=== PATIENT | male | born 1945 | race Caucasian/White ===

== ENCOUNTER 2017-01-19 15:29 | Inpatient (IN) | payer MEDICARE, BC ==
[2017-01-19] MEDS ORDERED: ALBUTEROL NEBULIZED 2.5 MG/3 ML INHALATION STA (16:15)
[2017-01-19] MEDS ORDERED: methylPREDNISolone SOD SUCCI 125 MG/2 ML VIAL IV STA (16:15)
[2017-01-19] MEDS ORDERED: IPRATROPIUM 0.5 MG/2.5 ML NEBU INHALATION STA (16:16)
[2017-01-19 16:39] LABS: Basophils # (A) 0.1 k/uL (0-0.2); Basophils % (A) 1 %; CH 30.9; CHCM 34.4; Eosinophils % (A) 0 %; HCT 41.3 % (39.0-53.0); HDW 2.78; HGB 13.6 gm/dL (13.0-17.5); Luc # (Auto) 0.03; Luc % (Auto) 0; Lymphocytes # (A) 0.4 k/uL (1.0-4.8); Lymphocytes % (A) 4 %; MCH 29.7 pg (25.0-35.0); MCHC 32.9 g/dL (31.0-37.0); MCV 90.2 fL (80.0-100.0); Mean Platelet Volume 7.3; Monocytes # (A) 0.2 k/uL (0-1.0); Monocytes % (A) 2 %; Neutrophils # (A) 9.7 k/uL (1.3-7.7); Neutrophils % (A) 93 %; RBC 4.58 m/uL (4.30-5.90); RDW 14.5 % (11.5-15.5); WBC 10.5 k/uL (3.8-10.6)
[2017-01-19 16:48] LABS: ALT 25 U/L (21-72); AST 21 U/L (17-59); Alkaline Phosphatase 67 U/L (38-126); Anion Gap 12 mmol/L; Blood Urea Nitrogen 27 mg/dL (9-20); Calcium 9.7 mg/dL (8.4-10.2); Carbon Dioxide 23 mmol/L (22-30); Chloride 103 mmol/L (98-107); Glucose 260 mg/dL (74-99); Non-African American GFR(MDRD) 59 (>60 ml/min/1.73 sqM); Potassium 4.7 mmol/L (3.5-5.1); Sodium 138 mmol/L (137-145); Total Bilirubin 0.7 mg/dL (0.2-1.3); Total Protein 7.2 g/dL (6.3-8.2)
[2017-01-19 16:55] LABS: Prothrombin Time 10.4 sec (9.0-12.0)
[2017-01-19 16:57] LABS: Creatine Kinase 48 U/L (55-170)
[2017-01-19 17:05] LABS: Partial Thromboplastin Time 22.2 sec (22.0-30.0)
[2017-01-19 17:10] LABS: Creatine Kinase MB 2.2 ng/mL (0.0-2.4); Troponin I <0.012 ng/mL (0.000-0.034)
--- NOTE | 2017-01-19 17:14 | XR ---
EXAMINATION TYPE: XR chest 2V DATE OF EXAM: 01/19/2017 COMPARISON: 05/19/2015 HISTORY: Short of breath TECHNIQUE: Frontal and lateral views of the chest are obtained. FINDINGS: There is some coarsening of interstitial markings. Lungs are clear of consolidation. There is no heart failure. There is neurostimulator in the lower thoracic spine. Bony thorax is intact. IMPRESSION: Interstitial fibrotic changes. No acute lung disease. No change compared to old exam.
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
[2017-01-19 20:35] LABS: Glucose,Whole Blood 306 mg/dL (75-99)
[2017-01-19] MEDS: INSULIN LISPRO (humaLOG) 300 UNIT/3 ML VIAL SQ SCH (21:15)
[2017-01-19 22:07] VITALS: BMI 32.4
[2017-01-19] MEDS: LISINOPRIL 20 MG TAB PO SCH (22:13)
[2017-01-19] MEDS: metFORMIN 500 MG TAB PO SCH (22:13)
[2017-01-19] MEDS: ALLOPURINOL 100 MG TAB PO SCH (22:13)
[2017-01-19] MEDS: LORATADINE 10 MG TAB PO SCH (22:13)
[2017-01-19] MEDS: TAMSULOSIN 0.4 MG CAP.ER.24H PO SCH (22:14)
[2017-01-19] MEDS: ALPRAZolam 0.5 MG TAB PO SCH (22:20)
[2017-01-19] MEDS ORDERED: NITROGLYCERIN SL TABS 0.4 MG TAB SUBLINGUAL PRN (23:06)
[2017-01-19] MEDS ORDERED: ALBUTEROL NEBULIZED 2.5 MG/3 ML INHALATION PRN (23:06)
[2017-01-19] MEDS ORDERED: FUROSEMIDE 40 MG TAB PO PRN (23:06)
[2017-01-19] MEDS ORDERED: POTASSIUM CHLORIDE ER 10 MEQ TAB.ER.PRT PO PRN (23:06)
[2017-01-19 23:09] LABS: Glucose,Whole Blood 267 mg/dL (75-99)
[2017-01-19] MEDS ORDERED: INSULIN LISPRO (humaLOG) 300 UNIT/3 ML VIAL SQ ONE (23:46)
[2017-01-19] MEDS: guaiFENesin-DM 600/30MG 1 EACH TAB.ER.12H PO SCH (23:54)
[2017-01-19] MEDS: methylPREDNISolone SOD SUCCI 125 MG/2 ML VIAL IV SCH (23:54)
[2017-01-20 02:05] LABS: Glucose,Whole Blood 143 mg/dL (75-99)
[2017-01-20 06:26] LABS: Glucose,Whole Blood 148 mg/dL (75-99)
[2017-01-20] MEDS: methylPREDNISolone SOD SUCCI 125 MG/2 ML VIAL IV SCH ×4 (06:29→23:26)
[2017-01-20] MEDS: INSULIN LISPRO (humaLOG) 300 UNIT/3 ML VIAL SQ SCH ×4 (06:30→21:08)
[2017-01-20] MEDS: metFORMIN 500 MG TAB PO SCH ×2 (09:07→21:08)
[2017-01-20] MEDS: ALPRAZolam 0.5 MG TAB PO SCH ×2 (09:07→21:08)
[2017-01-20] MEDS: guaiFENesin-DM 600/30MG 1 EACH TAB.ER.12H PO SCH (09:08)
[2017-01-20] MEDS: MONTELUKAST 10 MG TAB PO SCH (09:08)
[2017-01-20] MEDS: SPIRONOLACTONE 25 MG TAB PO SCH (09:08)
[2017-01-20] MEDS: LEVOFLOXACIN 500 MG TAB PO SCH (10:42)
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
[2017-01-20] MEDS: BUDESONIDE 0.5 MG/2 ML NEBU INHALATION SCH ×2 (11:37→19:52)
[2017-01-20] MEDS: TIOTROPIUM 18 MCG/PUFF INHALER INHALATION SCH (11:37)
[2017-01-20] MEDS: ALBUTEROL NEBULIZED 2.5 MG/3 ML INHALATION SCH ×4 (11:37→21:08)
[2017-01-20] MEDS: IPRATROPIUM 0.5 MG/2.5 ML NEBU INHALATION SCH ×3 (11:38→21:08)
[2017-01-20 11:49] LABS: Glucose,Whole Blood 225 mg/dL (75-99)
[2017-01-20 12:01] LABS: Hemoglobin A1C 6.6 % (4.2-6.1)
[2017-01-20] MEDS: IPRATROPIUM-ALBUTEROL 3 ML NEB INHALATION PRN ×2 (16:00→19:52)
[2017-01-20 16:50] LABS: Glucose,Whole Blood 175 mg/dL (75-99)
[2017-01-20 20:59] LABS: Glucose,Whole Blood 220 mg/dL (75-99)
[2017-01-20] MEDS: ALLOPURINOL 100 MG TAB PO SCH (21:08)
[2017-01-20] MEDS: LORATADINE 10 MG TAB PO SCH (21:08)
[2017-01-20] MEDS: LISINOPRIL 20 MG TAB PO SCH (21:08)
[2017-01-20] MEDS: TAMSULOSIN 0.4 MG CAP.ER.24H PO SCH (21:09)
[2017-01-21 05:59] LABS: Basophils # (A) 0.1 k/uL (0-0.2); Basophils % (A) 0 %; CH 30.9; CHCM 33.9; Eosinophils % (A) 0 %; HCT 43.4 % (39.0-53.0); HDW 2.73; HGB 13.9 gm/dL (13.0-17.5); Luc # (Auto) 0.05; Luc % (Auto) 0; Lymphocytes # (A) 0.5 k/uL (1.0-4.8); Lymphocytes % (A) 3 %; MCH 29.5 pg (25.0-35.0); MCHC 32.1 g/dL (31.0-37.0); MCV 91.8 fL (80.0-100.0); Mean Platelet Volume 7.2; Monocytes # (A) 0.5 k/uL (0-1.0); Monocytes % (A) 3 %; Neutrophils % (A) 94 %; RBC 4.72 m/uL (4.30-5.90); RDW 14.5 % (11.5-15.5); WBC 18.1 k/uL (3.8-10.6); WBC (Perox) 18.07
[2017-01-21 06:09] LABS: ALT 34 U/L (21-72); AST 15 U/L (17-59); Alkaline Phosphatase 68 U/L (38-126); Anion Gap 12 mmol/L; Blood Urea Nitrogen 31 mg/dL (9-20); Calcium 9.7 mg/dL (8.4-10.2); Carbon Dioxide 25 mmol/L (22-30); Chloride 102 mmol/L (98-107); Glucose 185 mg/dL (74-99); Non-African American GFR(MDRD) >60 (>60 ml/min/1.73 sqM); Potassium 4.9 mmol/L (3.5-5.1); Sodium 139 mmol/L (137-145); Total Bilirubin 0.4 mg/dL (0.2-1.3); Total Protein 6.7 g/dL (6.3-8.2)
[2017-01-21 06:16] LABS: Glucose,Whole Blood 184 mg/dL (75-99)
[2017-01-21] MEDS: INSULIN LISPRO (humaLOG) 300 UNIT/3 ML VIAL SQ SCH ×4 (06:34→22:48)
[2017-01-21] MEDS: methylPREDNISolone SOD SUCCI 125 MG/2 ML VIAL IV SCH ×4 (06:35→22:49)
[2017-01-21] MEDS: ALBUTEROL NEBULIZED 2.5 MG/3 ML INHALATION SCH ×4 (07:45→20:26)
[2017-01-21] MEDS: BUDESONIDE 0.5 MG/2 ML NEBU INHALATION SCH ×2 (07:45→20:26)
[2017-01-21] MEDS: TIOTROPIUM 18 MCG/PUFF INHALER INHALATION SCH (07:45)
[2017-01-21] MEDS: IPRATROPIUM-ALBUTEROL 3 ML NEB INHALATION PRN ×4 (07:45→23:13)
[2017-01-21] MEDS: IPRATROPIUM 0.5 MG/2.5 ML NEBU INHALATION SCH ×4 (07:46→20:26)
[2017-01-21] MEDS: ALPRAZolam 0.5 MG TAB PO SCH ×2 (08:14→22:53)
[2017-01-21] MEDS: guaiFENesin-DM 600/30MG 1 EACH TAB.ER.12H PO SCH (08:15)
[2017-01-21] MEDS: metFORMIN 500 MG TAB PO SCH ×2 (08:15→22:47)
[2017-01-21] MEDS: LEVOFLOXACIN 500 MG TAB PO SCH (08:15)
[2017-01-21] MEDS: MONTELUKAST 10 MG TAB PO SCH (08:16)
[2017-01-21] MEDS: SPIRONOLACTONE 25 MG TAB PO SCH (08:16)
[2017-01-21 11:42] LABS: Glucose,Whole Blood 235 mg/dL (75-99)
--- NOTE | 2017-01-21 12:03 | P.PN ---
Subjective 01/20/17- This is a 71-year-old male patient being seen examined and evaluated today on the selective care unit. This patient was admitted to the hospital after coming into the emergency room for increasing shortness of breath for the last week. The patient is known to have a history of COPD and pulmonary fibrosis and was originally being worked up at [facility] for a possible lung transplant. Patient has also completed pulmonary rehab earlier this year. The patient states he feels his progressive shortness of breath has to do with recent mold exposure in his house that was tested and noted to be 3 different types of mold that he is also ALLERGIC to. Apparently the patient stated that the criminal justice instructor of the home did have the mold removed however he felt it was not sufficiently removed. Patient is a former smoker and quit smoking approximately 3 years ago. Upon examination patient's resting up in bed on 3 L of supplemental oxygen which is what he uses at home as well. He states he does have a productive cough with tannish yellow sputum. He is afebrile no further complaints. Of note patient is also known to have some obstructive sleep apnea however states he cannot wear CPAP due to claustrophobia. 01/21/17- this patient has been seen and evaluated today on the selective care unit. Patient states he is having some slight improvement in his breathing however he still feels wheezy and tight at times. Complaints of shortness of breath with exertion. He feels less congested today than previously. He has been afebrile, no overnight events. No further complaints. Objective - Vital Signs Vital signs: Vital Signs Temp 98.2 F 01/21/17 08:00 Pulse 92 01/21/17 11:41 Resp 18 01/21/17 08:00 BP 189/101 01/21/17 08:00 Pulse Ox 97 01/21/17 08:00 Intake & Output 01/20/17 01/21/17 01/21/17 18:59 06:59 18:59 Intake Total 777 240 Balance 777 240 Weight 114.4 kg Intake: Oral 777 240 Other: Voiding Method Urinal # Voids 1 2 - Exam GENERAL EXAM: Alert, active, comfortable in no apparent distress. HEAD: Normocephalic. EYES: Normal reaction of pupils, equal size. NOSE: Clear with pink turbinates. THROAT: No erythema or exudates. NECK: No masses, no JVD. CHEST: No chest wall deformity. LUNGS: Lungs noted to have poor air entry bilaterally, diminished bases. Expiratory wheezing scattered throughout. CVS: S1 and S2 normal with no audible mumurs, regular rhythm. ABDOMEN: No hepatosplenomegaly, normal bowel sounds, no guarding or rigidity. EXTREMITIES: Trace edema noted, pedal pulses palpable. SKIN: No rashes CENTRAL NERVOUS SYSTEM: No focal deficits, tone is normal in all 4 extremities. - Labs CBC & Chem 7: 01/21/17 05:32 01/21/17 05:32 Labs: Abnormal Lab Results - Last 24 Hours (Table) 01/19/17 01/20/17 01/20/17 Range/Units 16:20 16:45 20:52 WBC (3.8-10.6) k/uL Plt Count (150-450) k/uL Neutrophils # (1.3-7.7) k/uL Lymphocytes # (1.0-4.8) k/uL BUN (9-20) mg/dL Glucose (74-99) mg/dL POC Glucose (mg/dL) 175 H 220 H (75-99) mg/dL Hemoglobin A1c 6.6 H (4.2-6.1) % AST (17-59) U/L 01/21/17 01/21/17 01/21/17 Range/Units 05:32 05:32 06:14 WBC 18.1 H (3.8-10.6) k/uL Plt Count 115 L (150-450) k/uL Neutrophils # 17.0 H (1.3-7.7) k/uL Lymphocytes # 0.5 L (1.0-4.8) k/uL BUN 31 H (9-20) mg/dL Glucose 185 H (74-99) mg/dL POC Glucose (mg/dL) 184 H (75-99) mg/dL Hemoglobin A1c (4.2-6.1) % AST 15 L (17-59) U/L 01/21/17 Range/Units 11:30 WBC (3.8-10.6) k/uL Plt Count (150-450) k/uL Neutrophils # (1.3-7.7) k/uL Lymphocytes # (1.0-4.8) k/uL BUN (9-20) mg/dL Glucose (74-99) mg/dL POC Glucose (mg/dL) 235 H (75-99) mg/dL Hemoglobin A1c (4.2-6.1) % AST (17-59) U/L Assessment and Plan Plan: Assessment Acute on chronic hypoxic respiratory failure Acute exacerbation of COPD Pulmonary fibrosis Diabetes mellitus type 2 History of Coronary artery disease with previous stenting Acute exacerbation of chronic persistent asthma, moderate Obstructive sleep apnea Hypertension Hyperlipidemia History of valley fever History of BPH Plan Medications have been reviewed and will be continued as ordered. We'll begin to decrease steroids after this evening's dose. Continue empiric antibiotics and steroids. Continue with pulmonary hygiene, coughing and deep breathing exercises, and supportive care. Supplemental oxygen to maintain oxygen saturations of 92% or better. Continue nebulizer treatments. GI and DVT prophylaxis. We will continue to monitor labs/results and adjust treatment as necessary. Further recommendations pending. I performed an examination of the patient and discussed their management with the nurse practitioner. I have reviewed the nurse practitioner's note and agree with the documented findings and plan of care. We are covering for Dr. CARLOS Cristina.
--- NOTE | 2017-01-21 14:19 | HP ---
DATE OF ADMISSION: 01/19/2017 DATE OF SERVICE: 01/20/2017 This is a pleasant 71-year-old white male who is known to have chronic obstructive pulmonary disease, who has been having problems for the past month. He has seen Dr. Baldev Cristina as an outpatient. He was administered updrafts and steroids and has failed conservative outpatient treatment. He is subsequently admitted for an exacerbation of chronic obstructive pulmonary disease. His medications include aerosol Ventolin and Pulmicort. Zyrtec, Zyloprim, Mucinex, insulin, Singulair, Xolair, potassium chloride, Flomax, Spiriva, metformin, Xanax, Lasix and [place]. ALLERGIES: No known drug allergies. REVIEW OF SYSTEMS: Admits to asthma, chronic obstructive pulmonary disease, heart disease, large prostate, high blood pressure. Denies any stroke or paralysis. Denies any myocardial infarction. Past medical history significant for asthma, coronary artery disease, cancer, heart failure, chronic obstructive pulmonary disease, diabetes, hyperlipidemia, hypertension, osteoarthritis, enlarged prostate, obstructive sleep apnea. He also has diabetic neuropathy in the lower extremities. Rest of review of systems is unremarkable. PSYCHOSOCIAL: Admits to former smoking. Denies any recent alcohol or drug abuse. FAMILY HISTORY: Coronary artery disease and his mother has renal failure. PHYSICAL EXAM: Patient is alert, oriented x3, answering questions appropriately. HEENT: Head is normocephalic and atraumatic. NECK: Supple, no JVD. HEART: Regular rate and rhythm. LUNGS: Diminished breath sounds bilateral. ABDOMEN: Soft, nontender. No rebound, rigidity or guarding. EXTREMITIES: No cyanosis, clubbing or jaundice. PSYCHIATRIC: Patient answers questions appropriately. NEUROLOGICAL: Cranial nerves II through XII grossly intact. IMPRESSIONS: 1. Exacerbation of chronic obstructive pulmonary disease. 2. Hypoxemia with acute respiratory failure requiring oxygen and pulmonary toilet. 3. Coronary artery disease, stable. 4. Diabetes mellitus type 2 insulin requiring. PLAN: Admit patient. Full pulmonary consultation in progress. IV steroids. Updrafts. Continue to follow patients overall guarded prognosis. MTDD
[2017-01-21] MEDS: HYDROcodone/APAP 10-325MG 1 EACH TAB PO PRN ×2 (14:55→22:53)
[2017-01-21 17:05] LABS: Glucose,Whole Blood 116 mg/dL (75-99)
[2017-01-21 20:34] LABS: Glucose,Whole Blood 222 mg/dL (75-99)
[2017-01-21] MEDS: LISINOPRIL 20 MG TAB PO SCH (22:47)
[2017-01-21] MEDS: TAMSULOSIN 0.4 MG CAP.ER.24H PO SCH (22:47)
[2017-01-21] MEDS: ALLOPURINOL 100 MG TAB PO SCH (22:47)
[2017-01-21] MEDS: LORATADINE 10 MG TAB PO SCH (22:48)
[2017-01-22] MEDS: methylPREDNISolone SOD SUCCI 125 MG/2 ML VIAL IV SCH ×3 (05:23→12:54)
[2017-01-22 05:57] LABS: Glucose,Whole Blood 216 mg/dL (75-99)
[2017-01-22] MEDS: INSULIN LISPRO (humaLOG) 300 UNIT/3 ML VIAL SQ SCH ×2 (06:51→12:54)
[2017-01-22] MEDS: HYDROcodone/APAP 10-325MG 1 EACH TAB PO PRN (08:57)
[2017-01-22] MEDS: ALPRAZolam 0.5 MG TAB PO SCH (08:57)
[2017-01-22] MEDS: guaiFENesin-DM 600/30MG 1 EACH TAB.ER.12H PO SCH (08:59)
[2017-01-22] MEDS: LEVOFLOXACIN 500 MG TAB PO SCH (08:59)
[2017-01-22] MEDS: metFORMIN 500 MG TAB PO SCH (08:59)
[2017-01-22] MEDS: MONTELUKAST 10 MG TAB PO SCH (08:59)
[2017-01-22] MEDS: SPIRONOLACTONE 25 MG TAB PO SCH (09:00)
[2017-01-22] MEDS: TIOTROPIUM 18 MCG/PUFF INHALER INHALATION SCH (09:03)
[2017-01-22] MEDS: IPRATROPIUM-ALBUTEROL 3 ML NEB INHALATION SCH ×2 (09:03→12:05)
[2017-01-22] MEDS: BUDESONIDE 0.5 MG/2 ML NEBU INHALATION SCH (09:03)
[2017-01-22 10:39] VITALS: RESP 17
[2017-01-22] MEDS ORDERED: SENNOSIDES-DOCUSATE SODIUM 1 EACH TAB PO SCH (11:30)
--- NOTE | 2017-01-22 11:36 | P.DS ---
Providers Date of admission: 01/19/17 19:23 Attending physician: Armand Montenegro Consults: 01/19/17 19:21 Consult Physician Urgent Consulting Provider: Ritchie Cristina Consult Reason/Comments: Pulmonary fibrosis, COPD Do you want consulting provider notified?: Yes, Notify in am Primary care physician: Armand Montenegro [place] [facility] Course: This is a 71-year-old gentleman that is seen in cross coverage for Dr. Armand Montenegro. Patient has chronic hypoxemic respiratory failure secondary to an FEV of 27% with COPD and pulmonary fibrosis. Patient comes in with acute exacerbation of COPD with difficulty breathing and clinically was noted to have wheezing apparently. Patient was started on breathing treatments was started on Levaquin and Pulmicort Patient is improved rapidly over the last 24 hours At this time due my evaluation patient's lungs diminished breath sounds no extremity wheezing is appreciated no rhonchi noted Heart S1-S2 heard regular rate and rhythm no murmurs appreciable Abdomen is soft nontender no organomegaly Lower extremities no edema noted Discharge diagnoses #1 acute exacerbation of COPD secondary to bronchitis #2 chronic hypoxemic respiratory failure #3 HF PEF without any acute exacerbation #4 pulmonary fibrosis #5 obesity #6 essential hypertension Plan Patient be discharged on steroids is recommended to follow-up with Dr. Shola Cristina thereafter steroids can be tapered off Patient states that he has been having extreme difficulty with his breathing since his ALLERGIES have worsened Patient Condition at Discharge: Stable Plan - Discharge Summary New Discharge Prescriptions: New predniSONE 40 mg PO DAILY #20 tab Continue Cetirizine HCl [Zyrtec] 10 mg PO HS Allopurinol [Zyloprim] 100 mg PO HS Albuterol Sulfate [Proventil Hfa] 2 puff INHALATION RT-QID PRN PRN Reason: Shortness Of Breath Omalizumab [Xolair] 450 mg IM Q14D Montelukast [Singulair] 10 mg PO DAILY Guaifenesin/Pseudoephedrne HCl [Mucinex D ER Tablet] 1 tab PO QAM Potassium Chloride [Klor-Con 10] 10 meq PO DAILY PRN PRN Reason: SWELLING Tiotropium Dema [Spiriva] 1 puff INHALATION RT-DAILY metFORMIN HCL 1,000 mg PO BID Budesonide [Pulmicort] 0.5 mg INHALATION RT-BID Albuterol Nebulized [Ventolin Nebulized] 2.5 mg INHALATION RT-QID Insulin Regular [humuLIN R] 0 units SQ DAILY PRN PRN Reason: Blood Sugar - High Tamsulosin [Flomax] 0.4 mg PO HS Nitroglycerin Sl Tabs [Nitrostat] 0.4 mg SUBLINGUAL Q5M PRN #25 tab PRN Reason: Chest Pain Quinapril HCl [Accupril] 20 mg PO HS #30 tab Spironolactone [Aldactone] 25 mg PO DAILY #0 Furosemide [Lasix] 40 mg PO DAILY PRN PRN Reason: Edema Hydrocodone/Acetaminophen [Leonard 10-325] 1 tab PO TID PRN PRN Reason: Pain ALPRAZolam [Xanax] 0.5 mg PO BID Discharge Medication List Albuterol Nebulized [Ventolin Nebulized] 2.5 mg INHALATION RT-QID 05/19/15 [ History] Albuterol Sulfate [Proventil Hfa] 2 puff INHALATION RT-QID PRN 05/19/15 [History ] Allopurinol [Zyloprim] 100 mg PO HS 05/19/15 [History] Budesonide [Pulmicort] 0.5 mg INHALATION RT-BID 05/19/15 [History] Cetirizine HCl [Zyrtec] 10 mg PO HS 05/19/15 [History] Guaifenesin/Pseudoephedrne HCl [Mucinex D ER Tablet] 1 tab PO QAM 05/19/15 [ History] Insulin Regular [humuLIN R] 0 units SQ DAILY PRN 05/19/15 [History] Montelukast [Singulair] 10 mg PO DAILY 05/19/15 [History] Omalizumab [Xolair] 450 mg IM Q14D 05/19/15 [History] Potassium Chloride [Klor-Con 10] 10 meq PO DAILY PRN 05/19/15 [History] Tamsulosin [Flomax] 0.4 mg PO HS 05/19/15 [History] Tiotropium Dema [Spiriva] 1 puff INHALATION RT-DAILY 05/19/15 [History] metFORMIN HCL 1,000 mg PO BID 05/19/15 [History] Nitroglycerin Sl Tabs [Nitrostat] 0.4 mg SUBLINGUAL Q5M PRN #25 tab 05/23/15 [Rx ] Quinapril HCl [Accupril] 20 mg PO HS #30 tab 05/23/15 [Rx] Spironolactone [Aldactone] 25 mg PO DAILY #0 05/23/15 [Rx] ALPRAZolam [Xanax] 0.5 mg PO BID 01/19/17 [History] Furosemide [Lasix] 40 mg PO DAILY PRN 01/19/17 [History] Hydrocodone/Acetaminophen [Leonard 10-325] 1 tab PO TID PRN 01/19/17 [History] predniSONE 40 mg PO DAILY #20 tab 01/22/17 [Rx] Follow up Appointment(s)/Referral(s): Armand Montenegro DO [Primary Care Provider] - 1-2 days Ritchie Cristina MD [STAFF PHYSICIAN] - 1 Week Discharge Disposition: HOME SELF-CARE
--- NOTE | 2017-01-22 11:45 | P.PN ---
Subjective 01/20/17- This is a 71-year-old male patient being seen examined and evaluated today on the selective care unit. This patient was admitted to the hospital after coming into the emergency room for increasing shortness of breath for the last week. The patient is known to have a history of COPD and pulmonary fibrosis and was originally being worked up at [facility] for a possible lung transplant. Patient has also completed pulmonary rehab earlier this year. The patient states he feels his progressive shortness of breath has to do with recent mold exposure in his house that was tested and noted to be 3 different types of mold that he is also ALLERGIC to. Apparently the patient stated that the psychology tech of the home did have the mold removed however he felt it was not sufficiently removed. Patient is a former smoker and quit smoking approximately 3 years ago. Upon examination patient's resting up in bed on 3 L of supplemental oxygen which is what he uses at home as well. He states he does have a productive cough with tannish yellow sputum. He is afebrile no further complaints. Of note patient is also known to have some obstructive sleep apnea however states he cannot wear CPAP due to claustrophobia. 01/21/17- this patient has been seen and evaluated today on the selective care unit. Patient states he is having some slight improvement in his breathing however he still feels wheezy and tight at times. Complaints of shortness of breath with exertion. He feels less congested today than previously. He has been afebrile, no overnight events. No further complaints. 01/22/17 patient is being seen examined and evaluated today on rounds. He does have improvement in his shortness of breath and wheezing. Also continues to be slightly tight at times. He has been up ambulating in the hallway frequently. Continues on 3 L of supplemental oxygen which she wears at home. Patient would like to go home as he feels his breathing is at baseline. Objective - Vital Signs Vital signs: Vital Signs Temp 98.7 F 01/22/17 08:00 Pulse 96 01/22/17 09:23 Resp 17 01/22/17 08:00 BP 153/92 01/22/17 08:00 Pulse Ox 98 01/22/17 09:06 Intake & Output 01/21/17 01/22/17 01/22/17 18:59 06:59 18:59 Intake Total 480 0 180 Output Total 200 Balance 480 -200 180 Weight 114.4 kg Intake: Oral 480 0 180 Output: Urine 200 Other: Voiding Method Urinal # Voids 1 1 - Exam GENERAL EXAM: Alert, active, comfortable in no apparent distress. HEAD: Normocephalic. EYES: Normal reaction of pupils, equal size. NOSE: Clear with pink turbinates. THROAT: No erythema or exudates. NECK: No masses, no JVD. CHEST: No chest wall deformity. LUNGS: Lungs noted to have poor air entry bilaterally, diminished bases. No significant wheezing. CVS: S1 and S2 normal with no audible mumurs, regular rhythm. ABDOMEN: No hepatosplenomegaly, normal bowel sounds, no guarding or rigidity. EXTREMITIES: Trace edema noted, pedal pulses palpable. SKIN: No rashes CENTRAL NERVOUS SYSTEM: No focal deficits, tone is normal in all 4 extremities. - Labs CBC & Chem 7: 01/21/17 05:32 01/21/17 05:32 Labs: Abnormal Lab Results - Last 24 Hours (Table) 01/21/17 01/21/17 01/21/17 Range/Units 11:30 17:03 20:33 POC Glucose (mg/dL) 235 H 116 H 222 H (75-99) mg/dL 01/22/17 Range/Units 05:55 POC Glucose (mg/dL) 216 H (75-99) mg/dL Assessment and Plan Plan: Assessment Acute on chronic hypoxic respiratory failure Acute exacerbation of COPD Pulmonary fibrosis Diabetes mellitus type 2 History of Coronary artery disease with previous stenting Acute exacerbation of chronic persistent asthma, moderate Obstructive sleep apnea Hypertension Hyperlipidemia History of valley fever History of BPH Plan Medications have been reviewed and will be continued as ordered. Patient will need steroid taper in the outpatient setting. Continue empiric antibiotics and steroids. Continue with pulmonary hygiene, coughing and deep breathing exercises , and supportive care. Supplemental oxygen to maintain oxygen saturations of 92 % or better. Continue nebulizer treatments. GI and DVT prophylaxis. We will continue to monitor labs/results and adjust treatment as necessary. Further recommendations pending. I performed an examination of the patient and discussed their management with the nurse practitioner. I have reviewed the nurse practitioner's note and agree with the documented findings and plan of care. We are covering for Dr. CARLOS Cristina.
[2017-01-22 12:17] VITALS: BP 164/65; PULSE 96; TEMP 98.9
[2017-01-22 12:25] LABS: Glucose,Whole Blood 155 mg/dL (75-99)
== END 2017-01-22 14:23 | disposition home or self-care (01) | DRG 190 ==
LOC: EC 15:29 → 6SEL 19:23
PROVIDERS: ADMIT Family Medicine; ATTEND Family Medicine
DX: J44.1 Chronic obstructive pulmonary disease with (acute) exacerbation (principal); J96.21 Acute and chronic respiratory failure with hypoxia; J45.41 Moderate persistent asthma with (acute) exacerbation; I11.0 Hypertensive heart disease with heart failure; I50.9 Heart failure, unspecified; J84.10 Pulmonary fibrosis, unspecified; Z99.81 Dependence on supplemental oxygen; E11.9 Type 2 diabetes mellitus without complications; E66.9 Obesity, unspecified; E78.5 Hyperlipidemia, unspecified; F40.240 Claustrophobia; G47.33 Obstructive sleep apnea (adult) (pediatric); I25.10 Atherosclerotic heart disease of native coronary artery without angina pectoris; N40.0 Benign prostatic hyperplasia without lower urinary tract symptoms; F41.9 Anxiety disorder, unspecified; M19.90 Unspecified osteoarthritis, unspecified site; Z77.120 Contact with and (suspected) exposure to mold (toxic); Z79.4 Long term (current) use of insulin; Z79.899 Other long term (current) drug therapy; Z85.828 Personal history of other malignant neoplasm of skin; Z87.891 Personal history of nicotine dependence; Z95.5 Presence of coronary angioplasty implant and graft; Z96.653 Presence of artificial knee joint, bilateral; Z82.49 Family history of ischemic heart disease and other diseases of the circulatory system
CPT/HCPCS: 36415; 71020; 80053; 82550; 82553; 83036; 83880; 84484; 85025; 85379; 85610; 85730; 93005; 94640; 94760; 96374; 99285

== ENCOUNTER → 2017-08-15 | Outpatient (CLI) | payer MEDICARE, BC ==
--- NOTE | 2017-08-16 11:25 | XR ---
EXAMINATION TYPE: XR chest 2V DATE OF EXAM: 08/15/2017 COMPARISON: 05/08/2017 INDICATION: Cough x1 week TECHNIQUE: Frontal and lateral views of the chest are obtained. FINDINGS: The heart size is normal. The pulmonary vasculature is upper limits of normal. Small amount of fluid may be at the right costophrenic angle. Some atelectatic type changes are likel y present at the bilateral bases.. IMPRESSION: 1. Suspected small bilateral subsegmental atelectasis. 2. Small right pleural fluid collection
== END | disposition home or self-care (01) ==
LOC: RADXRMAIN 18:21
PROVIDERS: ATTEND Internal Medicine Pulmonary Disease
DX: J90 Pleural effusion, not elsewhere classified (principal)
CPT/HCPCS: 71046

== ENCOUNTER → 2017-09-19 | Outpatient (CLI) | payer MEDICARE, BC ==
--- NOTE | 2017-09-19 14:56 | CT ---
EXAMINATION TYPE: CT chest w con DATE OF EXAM: 09/19/2017 COMPARISON: CTA chest May 08, [address] August 12, 2014 HISTORY: Shortness of breath CT DLP: 798 mGycm. Automated Exposure Control for Dose Reduction was Utilized. TECHNIQUE: CT scan of the thorax is performed following with IV Contrast, patient injected with 100 mL of Isovue 300. FINDINGS: LUNGS: Moderate underlying emphysematous change is redemonstrated. 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 There is additional linear scarring posteriorly in the right upper lobe redemonstrated. There is new trian gular shaped consolidation in the posterior lateral right lung base seen best coronal image 91. There is some patchy atelectatic change in the left lung base just above diaphragm. No new suspicious nodu le or mass is present bilaterally. MEDIASTINUM: There are no greater than 1 cm hilar or mediastinal lymph nodes. No pericardial cardio megaly is seen. There is severe rincon three-vessel coronary artery calcification redemonstrated whi ch is noted marker for coronary artery disease. Main pulmonary artery is dilated at 4.1 cm on axial i mage 32, CT findings suggesting underlying pulmonary artery hypertension. Interval resolution of morro cardial effusion noted. There is mild calcified plaque of aorta extending into branch vessels. OTHER: There is severe multilevel spurring in the mid to lower thoracic spine. IMPRESSION: Interval resolution of moderate pericardial effusion. Emphysematous change with scattered right lung scarring redemonstrated. New masslike nodularity posterior lateral right lung base could reflect focal pneumonia, correlate clinically.
== END | disposition home or self-care (01) ==
LOC: RADCTMAIN 12:40
PROVIDERS: ATTEND Internal Medicine
DX: J43.8 Other emphysema (principal); J98.4 Other disorders of lung; R91.8 Other nonspecific abnormal finding of lung field
CPT/HCPCS: 82565; 84520; 71260; 36415; Q9967

== ENCOUNTER 2017-12-10 16:58 | Emergency (ER) | payer MEDICARE, BC ==
[2017-12-10 17:07] VITALS: TEMP 98.1
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
--- NOTE | 2017-12-10 18:32 | US ---
EXAMINATION TYPE: US venous doppler duplex LE LT DATE OF EXAM: 12/10/2017 5:24 PM COMPARISON: NONE CLINICAL HISTORY: Pain. chronic skin discoloration, no prev dvt SIDE PERFORMED: left TECHNIQUE: The lower extremity deep venous system is examined utilizing real time linear array sonog benjamín with graded compression, doppler sonography and color-flow sonography. VESSELS IMAGED: External Iliac Vein (EIV) Common Femoral Vein Deep Femoral Vein Greater Saphenous Vein * Femoral Vein Popliteal Vein Small Saphenous Vein * Proximal Calf Veins (* superficial vessels) Grayscale, color doppler, spectral doppler imaging performed of the deep veins of the left lower extr emity. There is normal flow, compressibility, vascular waveforms. Left Leg: Negative for DVT IMPRESSION: No sonographic evidence of deep venous thrombosis within the left lower extremity.
[2017-12-10 18:55] VITALS: BP 128/68; PULSE 88; RESP 18
[2017-12-10] MEDS ORDERED: CEPHALEXIN 500 MG CAP PO STA (18:56)
== END 2017-12-10 19:11 | disposition home or self-care (01) ==
LOC: EC 16:58
DX: L03.116 Cellulitis of left lower limb (principal); S80.812A Abrasion, left lower leg, initial encounter; I25.10 Atherosclerotic heart disease of native coronary artery without angina pectoris; I11.0 Hypertensive heart disease with heart failure; I50.9 Heart failure, unspecified; M19.90 Unspecified osteoarthritis, unspecified site; I73.9 Peripheral vascular disease, unspecified; J44.9 Chronic obstructive pulmonary disease, unspecified; E11.40 Type 2 diabetes mellitus with diabetic neuropathy, unspecified; F41.9 Anxiety disorder, unspecified; Z86.718 Personal history of other venous thrombosis and embolism; Z85.828 Personal history of other malignant neoplasm of skin; Z87.891 Personal history of nicotine dependence; Z96.653 Presence of artificial knee joint, bilateral; Z95.5 Presence of coronary angioplasty implant and graft; Z98.890 Other specified postprocedural states; Z79.51 Long term (current) use of inhaled steroids; Z79.84 Long term (current) use of oral hypoglycemic drugs; Z79.899 Other long term (current) drug therapy; X58.XXXA Exposure to other specified factors, initial encounter
CPT/HCPCS: 99283

== ENCOUNTER 2018-03-24 11:24 | Inpatient (IN) | payer MEDICARE, BC ==
[2018-03-24] MEDS ORDERED: ALBUTEROL NEBULIZED 2.5 MG/3 ML INHALATION STA (11:42)
[2018-03-24] MEDS ORDERED: IPRATROPIUM 0.5 MG/2.5 ML NEBU INHALATION STA (11:42)
[2018-03-24] MEDS ORDERED: methylPREDNISolone SOD SUCCI 125 MG/2 ML VIAL IV STA (11:42)
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
[2018-03-24 13:04] LABS: Basophils % (A) 0 %; Eosinophils % (A) 0 %; HCT 43.3 % (39.0-53.0); HGB 14.2 gm/dL (13.0-17.5); Hypochromasia Slight; Lymphocytes # (A) 0.4 k/uL (1.0-4.8); Lymphocytes % (A) 4 %; MCH 29.9 pg (25.0-35.0); MCHC 32.8 g/dL (31.0-37.0); MCV 91.2 fL (80.0-100.0); Monocytes # (A) 0.4 k/uL (0-1.0); Monocytes % (A) 4 %; Neutrophils # (A) 9.6 k/uL (1.3-7.7); Neutrophils % (A) 92 %; Platelet Count 100 k/uL (150-450); RBC 4.75 m/uL (4.30-5.90); RDW 14.9 % (11.5-15.5); WBC 10.4 k/uL (3.8-10.6)
[2018-03-24 13:06] LABS: Albumin 4.1 g/dL (3.5-5.0); Calcium 9.5 mg/dL (8.4-10.2); Magnesium 1.5 mg/dL (1.6-2.3); Total Bilirubin 1.1 mg/dL (0.2-1.3); Total Protein 6.7 g/dL (6.3-8.2)
[2018-03-24 13:16] LABS: INR 1.1 (<1.2); Partial Thromboplastin Time 24.8 sec (22.0-30.0); Prothrombin Time 10.6 sec (9.0-12.0)
[2018-03-24 13:28] LABS: Creatine Kinase MB 3.7 ng/mL (0.0-2.4); Troponin I 0.014 ng/mL (0.000-0.034)
--- NOTE | 2018-03-24 13:33 | XR ---
EXAMINATION TYPE: XR chest 2V DATE OF EXAM: 03/24/2018 COMPARISON: 08/15/2017 HISTORY: Shortness of breath for 4 days. History of heart failure and COPD. TECHNIQUE: Frontal and lateral views of the chest are obtained. FINDINGS: There is chronic right hemidiaphragm elevation. Nerve stimulator is seen posteriorly. Card ia mediastinal silhouette is stable but enlarged. Interstitial prominence is unchanged from the prior . There is no new focal consolidation seen. Pulmonary hyperinflation represents underlying COPD. Mode rate multilevel degenerative change of the thoracic spine is noted. Diffuse osseous demineralization is also seen. IMPRESSION: Early changes with no acute cardiopulmonary process.
[2018-03-24] MEDS ORDERED: MAGNESIUM SULFATE-D5W PMX 1 GM in DEXTROSE/WATER 1 100ML.BAG IVPB ONE (13:36)
[2018-03-24] MEDS ORDERED: SODIUM CHLORIDE 0.9% 500 ML 500 ML IV ONE (13:36)
[2018-03-24] MEDS ORDERED: IPRATROPIUM-ALBUTEROL 3 ML NEB INHALATION PRN (14:34)
[2018-03-24] MEDS ORDERED: FUROSEMIDE 40 MG TAB PO PRN (14:35)
[2018-03-24] MEDS ORDERED: ALBUTEROL NEBULIZED 2.5 MG/3 ML INHALATION PRN (14:36)
[2018-03-24] MEDS ORDERED: NITROGLYCERIN SL TABS 0.4 MG TAB SUBLINGUAL PRN (16:45)
[2018-03-24] MEDS ORDERED: ACETAMINOPHEN TAB 500 MG TAB PO PRN (16:47)
[2018-03-24] MEDS ORDERED: HYDROcodone/APAP 5-325MG 1 EACH TAB PO PRN (16:47)
[2018-03-24] MEDS: IPRATROPIUM-ALBUTEROL 3 ML NEB INHALATION SCH ×2 (17:03→21:06)
[2018-03-24 17:09] LABS: Glucose,Whole Blood 314 mg/dL (75-99)
[2018-03-24] MEDS ORDERED: INSULIN REGULAR 100 UNIT/ML VIAL IV ONE (17:10)
[2018-03-24] MEDS ORDERED: INSULIN ASPART 100 UNIT/ML 1 ML 10 ML VIAL SQ SCH (17:30)
[2018-03-24] MEDS ORDERED: INSULIN REGULAR BOLUS (FROM DRIP BAG) IV ONE (17:40)
[2018-03-24] MEDS: TAPENTADOL HCL PO SCH ×2 (17:55→21:02)
[2018-03-24] MEDS: metFORMIN 500 MG TAB PO SCH (19:01)
[2018-03-24] MEDS: methylPREDNISolone SOD SUCCI 125 MG/2 ML VIAL IV SCH ×2 (19:02→23:19)
[2018-03-24 19:27] LABS: Glucose,Whole Blood 343 mg/dL (75-99)
[2018-03-24] MEDS: INSULIN REGULAR 100 UNIT in SODIUM CHLORIDE 0.9% 100 ML IV SCH (20:16)
[2018-03-24] MEDS: INSULIN ASPART 100 UNIT/ML 1 ML 10 ML VIAL SQ SCH (20:31)
[2018-03-24] MEDS: HYDROCHLOROTHIAZIDE 25 MG TAB PO SCH (20:42)
[2018-03-24] MEDS: SPIRONOLACTONE 25 MG TAB PO SCH (20:42)
[2018-03-24] MEDS: ATORVASTATIN 40 MG TAB PO SCH (20:42)
[2018-03-24] MEDS: LISINOPRIL 20 MG TAB PO SCH (20:42)
[2018-03-24] MEDS: ASPIRIN 81 MG PO SCH (20:42)
[2018-03-24] MEDS: TAMSULOSIN 0.4 MG CAP.ER.24H PO SCH (20:42)
[2018-03-24] MEDS: LORATADINE 10 MG TAB PO SCH (20:42)
[2018-03-24] MEDS: ALPRAZolam 1 MG TAB PO SCH (20:42)
[2018-03-24] MEDS: HEPARIN SODIUM,PORCINE 5,000 UNIT/ML 1 ML VIAL SQ SCH (20:42)
[2018-03-24 20:43] LABS: Glucose,Whole Blood 310 mg/dL (75-99)
--- NOTE | 2018-03-24 20:52 | HP ---
HISTORY AND PHYSICAL DATE OF SERVICE: 03/24/2018 I am covering for Dr. Armand Montenegro. HISTORY OF PRESENT ILLNESS: This 72-year-old gentleman with a past medical history of multiple medical problems including COPD, asthma, CHF, hypertension, DJD being followed by Dr. Armand Montenegro in the outpatient setting, not feeling well over the past several days. Patient having increasing shortness of breath, cough and productive white sputum and because of lack of improvement, patient came to [facility] and was admitted for further evaluation and treatment. The patient has also seen Dr. Cisco Cristina and Dr. Jones in the outpatient setting. PAST MEDICAL HISTORY: Asthma, CAD, CHF, COPD, diabetes, hypertension and DJD. MEDICATIONS: Prior to admission include home medications are: 1. Lantus 12 units subcu q.h.s. p.r.n. 2. Aspirin 81 mg q.h.s. 3. Prednisone 2 mg daily. 4. Nucynta 100 mg p.o. q.i.d. 5. Brovana 15 mcg b.i.d. 6. Spiriva 1 puff daily. 7. Flomax 0.4 q.h.s. 8. Aldactone 25 mg q.h.s. 10.Klor-Con 20 mEq p.o. daily. 11.Nitrostat 0.4 sublingual p.r.n. 12.Metformin 1000 mg p.o. b.i.d. 13.Humulin R p.r.n. 14.Mucinex D ER 1 tablet p.o. q.a.m. 15.Lasix 40 mg daily p.r.n. 16.Zyrtec 10 mg q.h.s. 17.Pulmicort 0.5 mg b.i.d. 18.Lipitor 40 mg at bedtime. 19.Zyloprim 100 mg p.o. daily. 20.Proventil 2 puffs q.i.d. p.r.n. 21.Ventolin nebulized 2.5 q.i.d. 22.Xanax 1 mg q.h.s. ALLERGIES: None. FAMILY HISTORY: History of coronary artery disease, CABG. SOCIAL HISTORY: Previous history of smoking. No history of current smoking. No alcohol intake. REVIEW OF SYSTEMS: ENT: No diminished hearing or diminished vision. CARDIOVASCULAR: As mentioned. RESPIRATORY: As mentioned earlier. GI no nausea or vomiting. : No dysuria. CENTRAL NERVOUS SYSTEM: No numbness or weakness. ALLERGY/IMMUNOLOGY: No asthma or hayfever. Musculoskeletal as mentioned. HEMATOLOGY: No history of anemia. ENDOCRINE: No history of diabetes or hypothyroidism. CONSTITUTIONAL: As mentioned earlier. DERMATOLOGY: Negative. RHEUMATOLOGY: Negative. PSYCHIATRY: As mentioned earlier. PHYSICAL EXAMINATION: Alert and oriented x3. Pulse is 92, blood pressure 156/80, respiration 18, temperature 98.8, pulse ox 91 percent on 3 L. HEENT is conjunctivae normal. Oral mucosa moist. Neck is no jugular venous distention. No carotid bruit. No lymph node enlargement. CARDIOVASCULAR: S1, S2 muffled. RESPIRATORY: Breath sounds diminished in the bases. Bilateral scattered rhonchi and expiratory wheezing and crackles. ABDOMEN: Soft, obese, nontender. No mass palpable. LEGS: No edema. No swelling. CENTRAL NERVOUS SYSTEM: Higher functions as mentioned earlier. Moves all 4 limbs. No focal motor or sensory deficits. LYMPHATICS: No lymph nodes palpable in the neck, axillae or groin. SKIN: No ulcer, rash or bleeding. LABS: WBC 10.2, hemoglobin is 14.5, platelets 100. Creatinine is 1.28. Magnesium 1.5 and glucose 314. ASSESSMENT: 1. Chronic obstructive pulmonary disease acute exacerbation with acute purulent tracheobronchitis. 2. Diabetes mellitus type 2, uncontrolled with hyperglycemia. 3. Increased creatinine with chronic kidney disease. 4. Thrombocytopenia. 5. Hypomagnesemia. 6. History of asthma. 7. History of coronary artery disease. 8. History of congestive heart failure. 9. History of diabetes type 2. 10.Hypertension. 11.Degenerative joint disease. 12.Prostate disorder. 13.History of chronic hypoxic respiratory failure. 3 L nasal cannula at home. 14.Obstructive sleep apnea. 15.History of lower extremity peripheral neuropathy. 16.History of back surgery. 17.Coronary artery disease/stent. 18.History of anxiety, claustrophobia. 19.Remote history of nicotine dependence. RECOMMENDATIONS AND DISCUSSION: In this 72-year-old gentleman who presented with multiple complex medical issues , we will monitor the patient closely. Continue the current medications, management and symptomatic treatment. We will initiate broad-spectrum IV antibiotics. I would also recommend IV steroids and IV insulin drip also. Pulmonary consultation with Dr. Cisco Cristina and Dr. Jones. Prognosis guarded because of multiple complex medical issues. Further recommendations to follow. A copy of dictation forwarded to Dr. Montenegro who is the primary physician. MMODL / IJN: [id number] / MTDD
[2018-03-24] MEDS ORDERED: INSULIN DETEMIR 100 UNIT/ML 10 ML VIAL SQ SCH (21:00)
[2018-03-24] MEDS: BUDESONIDE 0.5 MG/2 ML NEBU INHALATION SCH (21:04)
[2018-03-24] MEDS: FORMOTEROL FUMARATE 20 MCG/2 ML NEBU INHALATION SCH (21:06)
[2018-03-24 21:16] LABS: Glucose,Whole Blood 245 mg/dL (75-99)
[2018-03-24 23:17] LABS: Glucose,Whole Blood 169 mg/dL (75-99)
[2018-03-25 01:05] LABS: Glucose,Whole Blood 195 mg/dL (75-99)
[2018-03-25 03:14] LABS: Glucose,Whole Blood 164 mg/dL (75-99)
[2018-03-25 04:59] LABS: Hemoglobin A1C 7.4 % (4.0-6.0)
[2018-03-25] MEDS: INSULIN REGULAR 100 UNIT in SODIUM CHLORIDE 0.9% 100 ML IV SCH (05:14)
[2018-03-25 05:16] LABS: Glucose,Whole Blood 142 mg/dL (75-99)
[2018-03-25] MEDS: methylPREDNISolone SOD SUCCI 125 MG/2 ML VIAL IV SCH ×3 (06:38→17:52)
[2018-03-25 06:50] LABS: Glucose,Whole Blood 147 mg/dL (75-99)
[2018-03-25] MEDS: BUDESONIDE 0.5 MG/2 ML NEBU INHALATION SCH ×2 (07:20→19:08)
[2018-03-25] MEDS: FORMOTEROL FUMARATE 20 MCG/2 ML NEBU INHALATION SCH (07:20)
[2018-03-25] MEDS: IPRATROPIUM-ALBUTEROL 3 ML NEB INHALATION SCH ×4 (07:22→19:08)
[2018-03-25] MEDS ORDERED: INSULIN ASPART 100 UNIT/ML 1 ML 10 ML VIAL SQ SCH (07:30)
[2018-03-25] MEDS: TAPENTADOL HCL PO SCH ×4 (07:52→21:31)
[2018-03-25] MEDS: INSULIN ASPART 100 UNIT/ML 1 ML 10 ML VIAL SQ SCH ×4 (08:01→21:36)
[2018-03-25] MEDS: PANTOPRAZOLE 40 MG TABLET PO SCH (08:44)
[2018-03-25] MEDS: metFORMIN 500 MG TAB PO SCH ×2 (08:44→17:54)
[2018-03-25] MEDS: AZITHROMYCIN 500 MG TAB PO SCH (08:45)
[2018-03-25] MEDS: POTASSIUM CHLORIDE ER 20 MEQ TAB.ER PO SCH (08:45)
[2018-03-25] MEDS: ALLOPURINOL 100 MG TAB PO SCH (08:45)
[2018-03-25] MEDS: HEPARIN SODIUM,PORCINE 5,000 UNIT/ML 1 ML VIAL SQ SCH ×2 (08:46→21:35)
[2018-03-25] MEDS: PSEUDOEPHEDRINE 30 MG TAB PO SCH (08:46)
[2018-03-25 09:21] LABS: Glucose,Whole Blood 252 mg/dL (75-99)
[2018-03-25] MEDS: guaiFENesin 600 MG TABLET.ER PO SCH (09:41)
[2018-03-25 10:00] LABS: Glucose,Whole Blood 207 mg/dL (75-99)
[2018-03-25 12:32] LABS: Glucose,Whole Blood 61 mg/dL (75-99)
[2018-03-25 12:36] LABS: Glucose,Whole Blood 71 mg/dL (75-99)
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
[2018-03-25 17:25] LABS: Glucose,Whole Blood 277 mg/dL (75-99)
[2018-03-25 20:58] LABS: Glucose,Whole Blood 224 mg/dL (75-99)
--- NOTE | 2018-03-25 21:14 | PN ---
PROGRESS NOTE DATE OF SERVICE: 03/25/2018 I am covering for Dr. Armand Montenegro. This 72-year-old gentleman who was admitted with COPD exacerbation is on bronchodilators and steroids. Dr. Baldev Cristina is following the patient closely. The patient is feeling slightly better. No chest pain. No palpitation. EXAM: Alert and oriented x3. Pulse 100, blood pressure 143/82, respiration 24, temp 97.7, pulse ox 98% on 5 L. HEENT: Conjunctivae normal. CARDIOVASCULAR: S1, S2. RESPIRATORY: Breath sounds diminished in the bases. Bilateral scattered rhonchi and crackles. ABDOMEN: Soft, nontender. NERVOUS SYSTEM: No focal deficits. LABS: Platelets 100 and creatinine is 1.28. ASSESSMENT: 1. Chronic obstructive pulmonary disease exacerbation with acute purulent tracheobronchitis. 2. Diabetes mellitus type 2 uncontrolled with hyperglycemia. 3. Increased creatinine with chronic kidney disease. 4. Thrombocytopenia. 5. Hypomagnesemia. 6. History of asthma. 7. History of coronary artery disease. 8. History of congestive heart failure. 9. History of diabetes mellitus type 2. 10.Hypertension. 11.Degenerative joint disease. 12.History of prostate disorder. 13.History of chronic hypoxic respiratory failure, 3 L nasal cannula at home. 14.Obstructive sleep apnea. 15.History of lower extremity peripheral neuropathy. 16.History of back surgery. 17.History of coronary artery disease, stent. 18.History of anxiety, claustrophobia. 19.Remote history of nicotine dependence. RECOMMENDATIONS AND DISCUSSION: I recommend to continue the current management and symptomatic treatment at this time. Continue with bronchodilators and steroids. Antibiotics. Closely follow. His hemoglobin A1c is only 7.4. Further recommendations to follow. MMODL / IJN: [id number] /
[2018-03-25] MEDS: ASPIRIN 81 MG PO SCH (21:35)
[2018-03-25] MEDS: LORATADINE 10 MG TAB PO SCH (21:35)
[2018-03-25] MEDS: ATORVASTATIN 40 MG TAB PO SCH (21:35)
[2018-03-25] MEDS: LISINOPRIL 20 MG TAB PO SCH (21:35)
[2018-03-25] MEDS: SPIRONOLACTONE 25 MG TAB PO SCH (21:35)
[2018-03-25] MEDS: ALPRAZolam 1 MG TAB PO SCH (21:35)
[2018-03-25] MEDS: HYDROCHLOROTHIAZIDE 25 MG TAB PO SCH (21:35)
[2018-03-25] MEDS: TAMSULOSIN 0.4 MG CAP.ER.24H PO SCH (21:35)
[2018-03-25] MEDS: MONTELUKAST 10 MG TAB PO SCH (21:35)
[2018-03-25] MEDS: INSULIN DETEMIR 100 UNIT/ML 10 ML VIAL SQ SCH (21:42)
[2018-03-25] MEDS: methylPREDNISolone SOD SUCCI 40 MG/ML 1 ML VIAL IV SCH (23:12)
[2018-03-26 07:09] LABS: Glucose,Whole Blood 229 mg/dL (75-99)
[2018-03-26] MEDS: BUDESONIDE 0.5 MG/2 ML NEBU INHALATION SCH ×2 (07:20→19:05)
[2018-03-26] MEDS: IPRATROPIUM-ALBUTEROL 3 ML NEB INHALATION SCH ×4 (07:20→19:06)
[2018-03-26] MEDS: metFORMIN 500 MG TAB PO SCH ×2 (08:11→17:42)
[2018-03-26] MEDS: PANTOPRAZOLE 40 MG TABLET PO SCH (08:11)
[2018-03-26] MEDS: INSULIN ASPART 100 UNIT/ML 1 ML 10 ML VIAL SQ SCH ×4 (08:11→22:04)
[2018-03-26] MEDS: PSEUDOEPHEDRINE 30 MG TAB PO SCH (08:12)
[2018-03-26] MEDS: AZITHROMYCIN 500 MG TAB PO SCH (08:12)
[2018-03-26] MEDS: guaiFENesin 600 MG TABLET.ER PO SCH (08:12)
[2018-03-26] MEDS: ALLOPURINOL 100 MG TAB PO SCH (08:12)
[2018-03-26] MEDS: HEPARIN SODIUM,PORCINE 5,000 UNIT/ML 1 ML VIAL SQ SCH ×2 (08:12→22:04)
[2018-03-26] MEDS: POTASSIUM CHLORIDE ER 20 MEQ TAB.ER PO SCH (08:12)
[2018-03-26] MEDS: methylPREDNISolone SOD SUCCI 40 MG/ML 1 ML VIAL IV SCH ×2 (08:13→15:46)
[2018-03-26] MEDS: TAPENTADOL HCL PO SCH ×4 (08:25→22:02)
[2018-03-26 11:44] LABS: Glucose,Whole Blood 213 mg/dL (75-99)
[2018-03-26 13:23] LABS: Basophils % (A) 0 %; Eosinophils % (A) 0 %; HCT 41.7 % (39.0-53.0); HGB 13.4 gm/dL (13.0-17.5); Lymphocytes # (A) 0.3 k/uL (1.0-4.8); Lymphocytes % (A) 3 %; MCHC 32.2 g/dL (31.0-37.0); Mean Platelet Volume 7.4; Monocytes # (A) 0.3 k/uL (0-1.0); Monocytes % (A) 3 %; Neutrophils # (A) 9.6 k/uL (1.3-7.7); Neutrophils % (A) 94 %; RBC 4.63 m/uL (4.30-5.90); RDW 14.6 % (11.5-15.5); WBC 10.2 k/uL (3.8-10.6)
[2018-03-26 13:33] LABS: Magnesium 1.8 mg/dL (1.6-2.3); Potassium 4.8 mmol/L (3.5-5.1)
[2018-03-26 13:54] LABS: Platelet Count 76 k/uL (150-450)
[2018-03-26 17:02] LABS: Glucose,Whole Blood 195 mg/dL (75-99)
--- NOTE | 2018-03-26 19:39 | PN ---
PROGRESS NOTE DATE OF SERVICE: 03/26/2008 I am covering for Dr. Montenegro. HISTORY OF PRESENT ILLNESS: This 72-year-old gentleman with a past medical history of multiple medical problems including COPD and acute purulent tracheobronchitis, is improved significantly. No chest pain. No palpitations. No fever. EXAM: Alert and oriented x3. Pulse 85, blood pressure 170/809, respiration 20, temperature 97.8, pulse ox 97% on 5 L. HEENT: Conjunctivae normal. Oral mucosa moist. Neck is no jugular venous distention. No carotid bruit. No lymph node enlargement. CARDIOVASCULAR: S1, S2. RESPIRATORY: Breath sounds diminished in the bases. Bilateral scattered rhonchi and crackles. ABDOMEN: Soft, nontender. LEGS: No edema. NERVOUS SYSTEM: No focal deficits. LAB STUDIES: At this time shows WBC 10.2, hemoglobin is 10.2, platelets 37. Other labs are noted. ASSESSMENT: 1. Chronic obstructive pulmonary disease acute exacerbation with acute purulent tracheobronchitis. 2. Diabetes mellitus type 2, uncontrolled with hyper and hypoglycemia. 3. Increased creatinine with chronic kidney disease. 4. Thrombocytopenia. 5. Hypomagnesemia. 6. History of asthma. 7. History of coronary artery disease. 8. Congestive heart failure. 9. History of diabetes mellitus type 2. 10.Hypertension. 11.History of degenerative joint disease. 12.History of prostate disorder. 13.History of chronic hypoxic respiratory failure on 3 L nasal cannula at home. 14.Obstructive sleep apnea. 15.History of lower extremity peripheral neuropathy. 16.History of back surgery. 17.History of coronary artery disease, stent. 18.History of anxiety, claustrophobia. 19.Remote history of nicotine dependence. RECOMMENDATIONS AND DISCUSSION: I recommend to continue current management, continue symptomatic treatment. Taper the steroids. Continue the bronchodilators. Continue with antibiotics. Dr. Montenegro will follow. MMODL / IJN: [id number] /
[2018-03-26 20:30] LABS: Glucose,Whole Blood 208 mg/dL (75-99)
--- NOTE | 2018-03-26 21:36 | PN ---
PROGRESS NOTE DATE OF SERVICE: 03/26/2018 I am covering for Dr. Armand Montenegro. This 72-year-old gentleman admitted with COPD acute exacerbation is on IV steroids. Patient still has shortness of breath. The patient was complaining of cough also. Dr. Baldev Cristina is following the patient. No chest pain. No palpitations. No fever. EXAM: Alert and oriented x3. Pulse 74, blood pressure 142/80, respiration 18, temperature 96.9, pulse ox 94% on 5 L. HEENT: Conjunctivae normal. Oral mucosa moist. Neck is no jugular venous distention. No carotid bruit. No lymph node enlargement. CARDIOVASCULAR: S1, S2. RESPIRATORY: Breath sounds diminished in the bases. Bilateral scattered rhonchi. ABDOMEN: Soft, nontender. NERVOUS SYSTEM: No focal deficits. LABS: Platelets 76, glucose 202. ASSESSMENT: 1. Chronic obstructive pulmonary disease exacerbation with acute purulent tracheobronchitis. 2. Diabetes mellitus type 2, uncontrolled with hyperglycemia. 3. Increased creatinine with chronic kidney disease. 4. Thrombocytopenia. 5. Hypomagnesemia. 6. History of asthma. 7. History of coronary artery disease. 8. History of congestive heart failure. 9. Hypertension. 10.Degenerative joint disease. 11.History of prostate disorder. 12.Chronic hypoxic respiratory failure on 3 L nasal cannula at home. 13.Obstructive sleep apnea. 14.History of lower extremity peripheral neuropathy. 15.History of back surgery. 16.History of coronary artery disease, stent. 17.History of anxiety, claustrophobia. 18.Remote history of nicotine dependence. RECOMMENDATIONS AND DISCUSSION: I recommend to continue current management, continue with monitoring, and symptomatic treatment. Otherwise at this time, taper the steroids. The blood sugar is fluctuating. Closely monitor. Dr. Montenegro will follow in the morning. Prognosis guarded. Further recommendations to follow. MMODL / IJN: [id number] /
[2018-03-26] MEDS: LISINOPRIL 20 MG TAB PO SCH (22:01)
[2018-03-26] MEDS: MONTELUKAST 10 MG TAB PO SCH (22:01)
[2018-03-26] MEDS: LORATADINE 10 MG TAB PO SCH (22:01)
[2018-03-26] MEDS: SPIRONOLACTONE 25 MG TAB PO SCH (22:01)
[2018-03-26] MEDS: ALPRAZolam 1 MG TAB PO SCH (22:02)
[2018-03-26] MEDS: TAMSULOSIN 0.4 MG CAP.ER.24H PO SCH (22:02)
[2018-03-26] MEDS: ATORVASTATIN 40 MG TAB PO SCH (22:02)
[2018-03-26] MEDS: HYDROCHLOROTHIAZIDE 25 MG TAB PO SCH (22:02)
[2018-03-26] MEDS: ASPIRIN 81 MG PO SCH (22:02)
[2018-03-26] MEDS: INSULIN DETEMIR 100 UNIT/ML 10 ML VIAL SQ SCH (22:03)
--- NOTE | 2018-03-26 22:03 | PN ---
PROGRESS NOTE DATE OF SERVICE: 03/26/2018 He was seen again on March2017. He has been hemodynamically stable. He is less short of breath overall. PHYSICAL EXAMINATION: His blood pressure is 142/80, respiratory rate of 18, pulse rate of 74, temperature 96.9, O2 saturation on 5 L by nasal cannula is 94%. HEENT reveals pupils equal. Chest reveals prolonged expiration wheeze only on forced expiration. Cardiovascular system is S1, S2. ABDOMEN: Soft. There is no pedal edema. IMPRESSION: 1. At this time is severe asthma with chronic obstructive pulmonary disease with acute exacerbation. 2. Obesity. 3. Obstructive sleep apnea is likely. 4. Coronary artery disease status post stent placement. 5. Diabetes mellitus. PLAN: At this point in time, would continue the patient on IV steroids, bronchodilators, aerosolized steroids. Would only taper his steroids very slowly. Increase his activity level. Depending on how he does, we should make further changes to his care. MMODL / IJN: [id number] /
[2018-03-26 22:49] VITALS: RESP 20
[2018-03-27] MEDS: methylPREDNISolone SOD SUCCI 40 MG/ML 1 ML VIAL IV SCH ×2 (00:14→08:04)
[2018-03-27 05:44] VITALS: BP 150/82; TEMP 97.2
[2018-03-27] MEDS: IPRATROPIUM-ALBUTEROL 3 ML NEB INHALATION SCH ×2 (06:47→11:00)
[2018-03-27] MEDS: BUDESONIDE 0.5 MG/2 ML NEBU INHALATION SCH (06:47)
[2018-03-27 07:01] VITALS: PULSE 92
[2018-03-27 07:11] LABS: Glucose,Whole Blood 269 mg/dL (75-99)
[2018-03-27] MEDS: TAPENTADOL HCL PO SCH (07:59)
[2018-03-27] MEDS: guaiFENesin 600 MG TABLET.ER PO SCH (08:03)
[2018-03-27] MEDS: PANTOPRAZOLE 40 MG TABLET PO SCH (08:03)
[2018-03-27] MEDS: AZITHROMYCIN 500 MG TAB PO SCH (08:03)
[2018-03-27] MEDS: POTASSIUM CHLORIDE ER 20 MEQ TAB.ER PO SCH (08:03)
[2018-03-27] MEDS: PSEUDOEPHEDRINE 30 MG TAB PO SCH (08:03)
[2018-03-27] MEDS: metFORMIN 500 MG TAB PO SCH (08:03)
[2018-03-27] MEDS: ALLOPURINOL 100 MG TAB PO SCH (08:03)
[2018-03-27] MEDS: INSULIN ASPART 100 UNIT/ML 1 ML 10 ML VIAL SQ SCH (08:04)
[2018-03-27] MEDS: HEPARIN SODIUM,PORCINE 5,000 UNIT/ML 1 ML VIAL SQ SCH (08:04)
--- NOTE | 2018-03-27 10:32 | P.DS ---
Providers Date of admission: 03/24/18 14:34 Expected date of discharge: 03/27/18 Attending physician: Armand Montenegro Consults: 03/24/18 14:34 Consult Physician Routine Consulting Provider: Cat Jones Consult Reason/Comments: COPD Do you want consulting provider notified?: Yes Primary care physician: Armand Montenegro Hospital Course: 72-year-old male with a past medical history of multiple medical problems including COPD, asthma, CHF, hypertension, degenerative joint disease who presented to the emergency room with a chief complaint not feeling well over the past several days. Patient complained of increasing shortness of breath, cough, and productive white sputum. The patient was admitted to the hospital and consultations were placed to pulmonary. The patient was started on IV steroids and antibiotics during hospitalization. His respiratory status improved over a few days in the hospital and he is back to his baseline. He was deemed stable for discharge per Dr. Montenegro. DISCHARGE DIAGNOSIS: Acute exacerbation of chronic obstructive pulmonary disease Tracheobronchitis Diabetes mellitus, type II Hyperglycemia Thrombocytopenia History of coronary artery disease History of CHF, type unknown, no evidence of acute exacerbation Hypertension Chronic hypoxic respiratory failure, patient wears 3 L nasal cannula at home Obstructive sleep apnea Nurse practitioner note has been reviewed by physician. Signing provider agrees with the documented findings, assessment, and plan of care. Patient Condition at Discharge: Stable Plan - Discharge Summary Discharge Rx Participant: Yes New Discharge Prescriptions: New Cefuroxime Axetil [Ceftin] 500 mg PO BID #10 tab predniSONE See Taper PO DIRECTED #30 tab Continue Cetirizine HCl [Zyrtec] 10 mg PO HS Allopurinol [Zyloprim] 100 mg PO DAILY Albuterol Sulfate [Proventil Hfa] 2 puff INHALATION RT-QID PRN PRN Reason: Shortness Of Breath Guaifenesin/Pseudoephedrne HCl [Mucinex D ER Tablet] 1 tab PO QAM Potassium Chloride [Klor-Con 10] 20 meq PO DAILY Tiotropium Central [Spiriva] 1 puff INHALATION RT-DAILY metFORMIN HCL 1,000 mg PO BID Budesonide [Pulmicort] 0.5 mg INHALATION RT-BID Albuterol Nebulized [Ventolin Nebulized] 2.5 mg INHALATION RT-QID Insulin Regular [humuLIN R] See Protocol SQ DAILY PRN PRN Reason: Blood Sugar - High Tamsulosin [Flomax] 0.4 mg PO HS Nitroglycerin Sl Tabs [Nitrostat] 0.4 mg SUBLINGUAL Q5M PRN #25 tab PRN Reason: Chest Pain Furosemide [Lasix] 40 mg PO DAILY PRN PRN Reason: Edema ALPRAZolam [Xanax] 1 mg PO HS Atorvastatin [Lipitor] 40 mg PO HS Quinapril/Hydrochlorothiazide [Quinapril-Hctz 20-25 mg Tab] 1 tab PO HS Spironolactone [Aldactone] 25 mg PO HS Insulin Glargine [Lantus] 12 unit SQ HS PRN PRN Reason: Blood Sugar - High Aspirin 81 mg PO HS predniSONE 10 mg PO DAILY Tapentadol HCl [Nucynta] 100 mg PO QID Arformoterol Tartrate [Brovana] 15 mcg INHALATION RT-BID Discharge Medication List Albuterol Nebulized [Ventolin Nebulized] 2.5 mg INHALATION RT-QID 05/19/15 [ History] Albuterol Sulfate [Proventil Hfa] 2 puff INHALATION RT-QID PRN 05/19/15 [History ] Allopurinol [Zyloprim] 100 mg PO DAILY 05/19/15 [History] Budesonide [Pulmicort] 0.5 mg INHALATION RT-BID 05/19/15 [History] Cetirizine HCl [Zyrtec] 10 mg PO HS 05/19/15 [History] Guaifenesin/Pseudoephedrne HCl [Mucinex D ER Tablet] 1 tab PO QAM 05/19/15 [ History] Insulin Regular [humuLIN R] See Protocol SQ DAILY PRN 05/19/15 [History] Potassium Chloride [Klor-Con 10] 20 meq PO DAILY 05/19/15 [History] Tamsulosin [Flomax] 0.4 mg PO HS 05/19/15 [History] Tiotropium Central [Spiriva] 1 puff INHALATION RT-DAILY 05/19/15 [History] metFORMIN HCL 1,000 mg PO BID 05/19/15 [History] Nitroglycerin Sl Tabs [Nitrostat] 0.4 mg SUBLINGUAL Q5M PRN #25 tab 05/23/15 [Rx ] ALPRAZolam [Xanax] 1 mg PO HS 01/19/17 [History] Furosemide [Lasix] 40 mg PO DAILY PRN 01/19/17 [History] Atorvastatin [Lipitor] 40 mg PO HS 05/08/17 [History] Quinapril/Hydrochlorothiazide [Quinapril-Hctz 20-25 mg Tab] 1 tab PO HS [History] Arformoterol Tartrate [Brovana] 15 mcg INHALATION RT-BID 03/24/18 [History] Aspirin 81 mg PO HS 03/24/18 [History] Insulin Glargine [Lantus] 12 unit SQ HS PRN 03/24/18 [History] Spironolactone [Aldactone] 25 mg PO HS 03/24/18 [History] Tapentadol HCl [Nucynta] 100 mg PO QID 03/24/18 [History] predniSONE 10 mg PO DAILY 03/24/18 [History] Cefuroxime Axetil [Ceftin] 500 mg PO BID #10 tab 03/27/18 [Rx] predniSONE See Taper PO DIRECTED #30 tab 03/27/18 [Rx] Follow up Appointment(s)/Referral(s): Armand Montenegro DO [Primary Care Provider] - 1 Week Ritchie Cristina MD [STAFF PHYSICIAN] - 1 Week Activity/Diet/Wound Care/Special Instructions: Resume your daily prednisone after you finish your prednisone taper Discharge Disposition: HOME SELF-CARE
== END 2018-03-27 11:14 | disposition home or self-care (01) | DRG 191 ==
LOC: EC 11:24 → 4MS4W 14:34
PROVIDERS: ADMIT Family Medicine; ATTEND Family Medicine
DX: J44.1 Chronic obstructive pulmonary disease with (acute) exacerbation (principal); I13.0 Hypertensive heart and chronic kidney disease with heart failure and stage 1 through stage 4 chronic kidney disease, or unspecified chronic kidney disease; J96.11 Chronic respiratory failure with hypoxia; E87.2 Acidosis; J45.901 Unspecified asthma with (acute) exacerbation; I50.9 Heart failure, unspecified; G47.33 Obstructive sleep apnea (adult) (pediatric); Z99.81 Dependence on supplemental oxygen; D69.6 Thrombocytopenia, unspecified; E11.22 Type 2 diabetes mellitus with diabetic chronic kidney disease; I25.10 Atherosclerotic heart disease of native coronary artery without angina pectoris; E11.65 Type 2 diabetes mellitus with hyperglycemia; J20.9 Acute bronchitis, unspecified; J44.0 Chronic obstructive pulmonary disease with (acute) lower respiratory infection; E83.42 Hypomagnesemia; E66.9 Obesity, unspecified; Z68.35 Body mass index [BMI] 35.0-35.9, adult; E11.42 Type 2 diabetes mellitus with diabetic polyneuropathy; M19.90 Unspecified osteoarthritis, unspecified site; N18.9 Chronic kidney disease, unspecified; Z79.4 Long term (current) use of insulin; Z79.52 Long term (current) use of systemic steroids; Z82.49 Family history of ischemic heart disease and other diseases of the circulatory system; Z85.828 Personal history of other malignant neoplasm of skin; Z95.5 Presence of coronary angioplasty implant and graft; Z79.82 Long term (current) use of aspirin; Z79.51 Long term (current) use of inhaled steroids; Z79.899 Other long term (current) drug therapy; Z87.891 Personal history of nicotine dependence; N42.9 Disorder of prostate, unspecified; F40.240 Claustrophobia; Z84.1 Family history of disorders of kidney and ureter; I27.81 Cor pulmonale (chronic)
CPT/HCPCS: 36415; 71046; 80048; 80053; 82550; 82553; 83036; 83605; 83735; 83880; 84484; 85025; 85610; 85730; 87040; 93005; 94640; 94760; 96365; 96375; 99285

== ENCOUNTER 2018-07-10 12:18 | Inpatient (IN) | payer MEDICARE, BC ==
[2018-07-10] MEDS ORDERED: IPRATROPIUM-ALBUTEROL 3 ML NEB INHALATION STA (14:26)
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
--- NOTE | 2018-07-10 15:06 | XR ---
EXAMINATION TYPE: XR chest 2V DATE OF EXAM: 07/10/2018 COMPARISON: Chest x-ray March 24, 2018. CT chest September 19, 2017. HISTORY: History of COPD and asthma with shortness of breath TECHNIQUE: Frontal and lateral views of the chest are obtained. FINDINGS: There is chronic emphysematous change bilaterally with scattered areas of parenchymal scar ring redemonstrated. There is no new suspicious focal airspace opacity or pneumothorax seen bilateral ly. Chronic blunting right lateral costophrenic angles consistent with small focal pleural thickening . The cardiac silhouette size is stable and upper limits of normal with atherosclerotic aorta. Spina l stimulator device overlies the lower thoracic spinal canal. IMPRESSION: Chronic emphysematous and parenchymal changes without suspicious acute infiltrate.
[2018-07-10 15:19] LABS: Albumin 4.2 g/dL (3.5-5.0); Calcium 9.5 mg/dL (8.4-10.2); INR 0.9 (<1.2); Partial Thromboplastin Time 25.1 sec (22.0-30.0); Potassium 4.2 mmol/L (3.5-5.1); Prothrombin Time 10.1 sec (9.0-12.0); Total Bilirubin 1.7 mg/dL (0.2-1.3); Total Protein 7.1 g/dL (6.3-8.2)
[2018-07-10 15:22] LABS: Creatine Kinase 62 U/L (55-170)
[2018-07-10 15:27] LABS: Basophils % (A) 0 %; Eosinophils % (A) 0 %; HCT 40.5 % (39.0-53.0); HGB 13.5 gm/dL (13.0-17.5); Lymphocytes # (A) 0.5 k/uL (1.0-4.8); Lymphocytes % (A) 9 %; MCH 29.3 pg (25.0-35.0); MCHC 33.2 g/dL (31.0-37.0); MCV 88.2 fL (80.0-100.0); Mean Platelet Volume 6.6; Monocytes # (A) 0.5 k/uL (0-1.0); Monocytes % (A) 8 %; Neutrophils # (A) 4.9 k/uL (1.3-7.7); Neutrophils % (A) 81 %; RBC 4.59 m/uL (4.30-5.90)
[2018-07-10 15:36] LABS: Creatine Kinase MB 1.7 ng/mL (0.0-2.4); Troponin I <0.012 ng/mL (0.000-0.034)
[2018-07-10 15:56] LABS: Anisocytosis (M) Present; Platelet Count 86 k/uL (150-450); Polychromasia Present
[2018-07-10] MEDS ORDERED: methylPREDNISolone SOD SUCCI 125 MG/2 ML VIAL IV STA (17:10)
[2018-07-10] MEDS ORDERED: IPRATROPIUM-ALBUTEROL 3 ML NEB INHALATION PRN (17:10)
[2018-07-10] MEDS: IPRATROPIUM-ALBUTEROL 3 ML NEB INHALATION SCH (18:44)
[2018-07-10] MEDS: methylPREDNISolone SOD SUCCI 125 MG/2 ML VIAL IV SCH (20:14)
[2018-07-11] MEDS: methylPREDNISolone SOD SUCCI 125 MG/2 ML VIAL IV SCH ×4 (01:38→17:23)
[2018-07-11 07:00] LABS: Glucose,Whole Blood 252 mg/dL (75-99)
[2018-07-11] MEDS ORDERED: FUROSEMIDE 40 MG TAB PO PRN (07:47)
[2018-07-11] MEDS ORDERED: NITROGLYCERIN SL TABS 0.4 MG TAB SUBLINGUAL PRN (07:47)
[2018-07-11] MEDS ORDERED: INSULIN REGULAR 100 UNIT/ML VIAL IV PRN (07:51)
[2018-07-11] MEDS ORDERED: NON-FORMULARY DRUG (Tiotropium Bromide [Spiriva] 1 PUFF) INHALATION SCH (08:00)
[2018-07-11] MEDS: POTASSIUM CHLORIDE ER 20 MEQ TAB.ER PO SCH (08:47)
[2018-07-11] MEDS: ALLOPURINOL 100 MG TAB PO SCH (08:47)
[2018-07-11] MEDS: CHOLECALCIFEROL 1,000 UNIT TAB PO SCH (08:47)
[2018-07-11] MEDS: metFORMIN 500 MG TAB PO SCH ×2 (08:47→20:41)
[2018-07-11] MEDS: INSULIN ASPART 100 UNIT/ML 1 ML 10 ML VIAL SQ SCH ×4 (08:48→20:50)
[2018-07-11] MEDS: GUAIFENESIN PO SCH (08:51)
[2018-07-11] MEDS: PSEUDOEPHEDRINE PO SCH (08:51)
[2018-07-11] MEDS: [UNRECOGNIZED DRUG - OTHER] PO SCH (08:51)
[2018-07-11] MEDS: TAPENTADOL PO SCH ×4 (08:52→20:47)
[2018-07-11] MEDS: BUDESONIDE 0.5 MG/2 ML NEBU INHALATION SCH ×2 (09:16→20:02)
[2018-07-11] MEDS: IPRATROPIUM-ALBUTEROL 3 ML NEB INHALATION SCH ×4 (09:17→20:03)
[2018-07-11] MEDS: FORMOTEROL FUMARATE 20 MCG/2 ML NEBU INHALATION SCH ×2 (09:17→20:17)
[2018-07-11 11:53] LABS: Glucose,Whole Blood 237 mg/dL (75-99)
[2018-07-11] MEDS: LEVOFLOXACIN 250 MG TAB PO SCH (12:08)
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
[2018-07-11 16:56] LABS: Glucose,Whole Blood 206 mg/dL (75-99)
[2018-07-11 17:40] LABS: Hemoglobin A1C 6.8 % (4.0-6.0)
[2018-07-11 20:21] LABS: Glucose,Whole Blood 243 mg/dL (75-99)
[2018-07-11] MEDS: ATORVASTATIN 40 MG TAB PO SCH (20:41)
[2018-07-11] MEDS: LORATADINE 10 MG TAB PO SCH (20:41)
[2018-07-11] MEDS: ASPIRIN 81 MG PO SCH (20:41)
[2018-07-11] MEDS: ALPRAZolam 1 MG TAB PO SCH (20:41)
[2018-07-11] MEDS: TAMSULOSIN 0.4 MG CAP.ER.24H PO SCH (20:41)
[2018-07-11] MEDS: SPIRONOLACTONE 25 MG TAB PO SCH (20:41)
[2018-07-11] MEDS: INSULIN DETEMIR 100 UNIT/ML 10 ML VIAL SQ SCH (20:42)
[2018-07-11] MEDS: LISINOPRIL-HCTZ 20-25 MG 1 EACH TAB PO SCH (20:42)
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
[2018-07-12] MEDS: methylPREDNISolone SOD SUCCI 125 MG/2 ML VIAL IV SCH ×4 (00:25→17:32)
[2018-07-12 07:20] LABS: Glucose,Whole Blood 213 mg/dL (75-99)
[2018-07-12] MEDS: PSEUDOEPHEDRINE PO SCH (07:45)
[2018-07-12] MEDS: GUAIFENESIN PO SCH (07:45)
[2018-07-12] MEDS: [UNRECOGNIZED DRUG - OTHER] PO SCH (07:45)
[2018-07-12] MEDS: TAPENTADOL PO SCH ×4 (07:45→22:09)
[2018-07-12 07:48] LABS: Basophils % (A) 0 %; Eosinophils % (A) 0 %; HCT 40.7 % (39.0-53.0); HGB 13.2 gm/dL (13.0-17.5); Lymphocytes # (A) 0.3 k/uL (1.0-4.8); Lymphocytes % (A) 3 %; MCHC 32.3 g/dL (31.0-37.0); MCV 89.7 fL (80.0-100.0); Mean Platelet Volume 6.6; Monocytes # (A) 0.3 k/uL (0-1.0); Monocytes % (A) 3 %; Neutrophils # (A) 9.1 k/uL (1.3-7.7); Neutrophils % (A) 93 %; RBC 4.54 m/uL (4.30-5.90); RDW 14.9 % (11.5-15.5); WBC 9.7 k/uL (3.8-10.6)
[2018-07-12] MEDS: metFORMIN 500 MG TAB PO SCH ×2 (07:49→22:04)
[2018-07-12] MEDS: INSULIN ASPART 100 UNIT/ML 1 ML 10 ML VIAL SQ SCH ×4 (07:50→22:06)
[2018-07-12] MEDS: CHOLECALCIFEROL 1,000 UNIT TAB PO SCH (07:50)
[2018-07-12] MEDS: POTASSIUM CHLORIDE ER 20 MEQ TAB.ER PO SCH (07:50)
[2018-07-12] MEDS: ALLOPURINOL 100 MG TAB PO SCH (07:51)
[2018-07-12] MEDS: IPRATROPIUM-ALBUTEROL 3 ML NEB INHALATION SCH ×4 (07:52→19:43)
[2018-07-12] MEDS: BUDESONIDE 0.5 MG/2 ML NEBU INHALATION SCH ×2 (07:52→19:43)
[2018-07-12 07:54] LABS: Platelet Count 82 k/uL (150-450)
[2018-07-12 07:58] LABS: Albumin 3.9 g/dL (3.5-5.0); Calcium 9.4 mg/dL (8.4-10.2); Potassium 4.6 mmol/L (3.5-5.1); Total Bilirubin 0.6 mg/dL (0.2-1.3); Total Protein 6.7 g/dL (6.3-8.2)
[2018-07-12] MEDS: FORMOTEROL FUMARATE 20 MCG/2 ML NEBU INHALATION SCH ×2 (08:08→19:43)
[2018-07-12 11:39] LABS: Glucose,Whole Blood 271 mg/dL (75-99)
--- NOTE | 2018-07-12 12:21 | P.PN ---
Subjective Progress Note Date: 07/12/18 HPI: This is a 72-year-old male patient being seen examined and evaluated today for consultation. This patient is well-known to our services. This patient was seen in our office on 07/10/2018 and he presented quite dyspneic. The patient was struggling to breathe and he was quite wheezy. The patient was sent over to the emergency room for further evaluation and treatment ultimately he was admitted to the hospital for the same. Chest x-ray was obtained and does show chronic emphysema with parenchymal changes withassistance infiltrates at this time. The patient previously was being worked up at [facility] for a possible lung transplant however was dropped from the program after they did not feel the patient had enough support at home to go through the transplant process. Upon examination he is resting up in bed on 6 L of supplemental oxygen. He continues to have shortness of breath cough and wheeze however he is less wheezy today that he was yesterday in the office. The breathing treatments are helping him. His influenza swab was negative. He was started on antibiotics. Interval History: 07/12/18- patient is being seen examined and evaluated today on rounds. He is resting up in bed on 6 L of supplemental oxygen via nasal cannula. He continues to have shortness of breath cough and congestion however it is decreasing in severity. He is breathing of green sputum. He feels the nebulizers and steroid treatments are helping him as well as the antibiotics. Overall he feels improved from yesterday however is not at his baseline. All labs and reports have been reviewed. Objective - Vital Signs Vital signs: Vital Signs Temp 98 F 07/12/18 07:21 Pulse 100 07/12/18 11:34 Resp 18 07/12/18 08:10 BP 147/90 07/12/18 07:21 Pulse Ox 96 07/12/18 07:54 Intake & Output 07/11/18 07/12/18 07/12/18 18:59 06:59 18:59 Intake Total 444 472 Balance 444 472 Intake: Oral 444 472 Other: # Voids 2 1 - Exam GENERAL EXAM: Alert, comfortable in no apparent distress. HEAD: Normocephalic. EYES: Normal reaction of pupils, equal size. NOSE: Clear with pink turbinates. THROAT: No erythema or exudates. NECK: No masses, no JVD. CHEST: No chest wall deformity. LUNGS: Lungs noted to have some expiratory wheezing, however improved since yesterday. Bases diminished CVS: S1 and S2 normal with no audible mumurs, regular rhythm. ABDOMEN: No hepatosplenomegaly, normal bowel sounds, no guarding or rigidity. EXTREMITIES: Trace edema noted, pedal pulses palpable. CENTRAL NERVOUS SYSTEM: No focal deficits, tone is normal in all 4 extremities. - Labs CBC & Chem 7: 07/12/18 06:57 07/12/18 06:57 Labs: Abnormal Lab Results - Last 24 Hours (Table) 07/10/18 07/11/18 07/11/18 Range/Units 14:10 16:54 20:15 Plt Count (150-450) k/uL Neutrophils # (1.3-7.7) k/uL Lymphocytes # (1.0-4.8) k/uL BUN (9-20) mg/dL Glucose (74-99) mg/dL POC Glucose (mg/dL) 206 H 243 H (75-99) mg/dL Hemoglobin A1c 6.8 H (4.0-6.0) % 07/12/18 07/12/18 07/12/18 Range/Units 06:57 06:57 07:06 Plt Count 82 L (150-450) k/uL Neutrophils # 9.1 H (1.3-7.7) k/uL Lymphocytes # 0.3 L (1.0-4.8) k/uL BUN 28 H (9-20) mg/dL Glucose 207 H (74-99) mg/dL POC Glucose (mg/dL) 213 H (75-99) mg/dL Hemoglobin A1c (4.0-6.0) % 07/12/18 Range/Units 11:27 Plt Count (150-450) k/uL Neutrophils # (1.3-7.7) k/uL Lymphocytes # (1.0-4.8) k/uL BUN (9-20) mg/dL Glucose (74-99) mg/dL POC Glucose (mg/dL) 271 H (75-99) mg/dL Hemoglobin A1c (4.0-6.0) % Microbiology - Last 24 Hours (Table) 07/10/18 14:10 Blood Culture - Preliminary Blood No Growth after 24 hours Assessment and Plan Assessment: Assessment Acute exacerbation of COPD Acute exacerbation of chronic severe asthma Acute on chronic hypoxic respiratory failure requiring supplemental oxygen Possible early pneumonia, cannot be excluded at this time CAD Hypertension Oxygen dependent Osteoarthritis Plan Medications have been reviewed and will be continued as ordered. Antibiotics and steroid taper Chest x-ray reviewed Continue with pulmonary hygiene, coughing and deep breathing exercises, and supportive care. Supplemental oxygen to maintain oxygen saturations of 92% or better. Continue nebulizer treatments. GI and DVT prophylaxis. We will continue to monitor labs/results and adjust treatment as necessary. Further recommendations pending. I, the signing physician performed an examination of the patient, discussed and directed their management with the nurse practitioner. I have reviewed the nurse practitioner's note and agree with the documented findings, orders and plan of care. Nurse practitioner acting as a scribe for the signing physician.
[2018-07-12] MEDS: LEVOFLOXACIN 250 MG TAB PO SCH (12:22)
[2018-07-12 17:04] LABS: Glucose,Whole Blood 230 mg/dL (75-99)
[2018-07-12 19:48] LABS: Glucose,Whole Blood 202 mg/dL (75-99)
[2018-07-12] MEDS: LISINOPRIL-HCTZ 20-25 MG 1 EACH TAB PO SCH (22:04)
[2018-07-12] MEDS: ATORVASTATIN 40 MG TAB PO SCH (22:04)
[2018-07-12] MEDS: LORATADINE 10 MG TAB PO SCH (22:04)
[2018-07-12] MEDS: ALPRAZolam 1 MG TAB PO SCH (22:04)
[2018-07-12] MEDS: TAMSULOSIN 0.4 MG CAP.ER.24H PO SCH (22:04)
[2018-07-12] MEDS: SPIRONOLACTONE 25 MG TAB PO SCH (22:04)
[2018-07-12] MEDS: INSULIN DETEMIR 100 UNIT/ML 10 ML VIAL SQ SCH (22:05)
[2018-07-12] MEDS: ASPIRIN 81 MG PO SCH (22:05)
--- NOTE | 2018-07-12 22:19 | P.PN ---
Subjective Progress Note Date: 07/12/18 Patient is a pleasant 72 year old white male who is admitted with exacerbation of COPD he seen by pulmonary and started on medications including antibiotics for purulent tracheobronchitis he's doing somewhat better today he is still on steroids but wishes to go home soon if he continues to improve I told him would check tomorrow he denies any chest pain denies any nausea vomiting denies any diarrhea Objective - Vital Signs Vital signs: Vital Signs Temp 98.3 F 07/12/18 19:00 Pulse 99 07/12/18 20:03 Resp 18 07/12/18 20:03 BP 134/80 07/12/18 19:00 Pulse Ox 95 07/12/18 19:43 Intake & Output 07/12/18 07/12/18 07/13/18 06:59 18:59 06:59 Intake Total 472 Balance 472 Intake: Oral 472 Other: # Voids 1 2 - Exam GENERAL: This is a -year-old in no apparent distress at the time of examination. Pleasant and cooperative. HEENT: Head is atraumatic, normocephalic. Pupils are equal, round, and reactive to light. Sclerae anicteric. Conjunctivae are clear. Mucus membranes of the mouth are moist. Neck is supple. RESPIRATORY: wheezes bilateral , No use of accessory muscles. Patient maintaining oxygen saturation greater than 92%. No chest wall tenderness is noted on palpation or with deep breathing. CARDIOVASCULAR: Regular rate and rhythm. S1 and S2 noted. No JVD noted. No S3 or S4 noted. GASTROINTESTINAL: No distention noted. Abdomen soft and round. Normal active bowel sounds auscultated x 4 quadrants. No pain or tenderness noted upon palpation. INTEGUMENTARY: No cyanosis. No jaundice. No rashes noted. No cellulitis noted. Some stasis dermatitis in his lower extremities with edema bilateral EXTREMITIES: 2+ peripheral pulses. No evidence of peripheral edema. No calf tenderness noted. NEUROLOGIC: Cranial nerves II-XII intact. PSYCHIATRIC: Awake, alert, and oriented X 3. - Labs CBC & Chem 7: 07/12/18 06:57 07/12/18 06:57 Labs: Abnormal Lab Results - Last 24 Hours (Table) 07/12/18 07/12/18 07/12/18 Range/Units 06:57 06:57 07:06 Plt Count 82 L (150-450) k/uL Neutrophils # 9.1 H (1.3-7.7) k/uL Lymphocytes # 0.3 L (1.0-4.8) k/uL BUN 28 H (9-20) mg/dL Glucose 207 H (74-99) mg/dL POC Glucose (mg/dL) 213 H (75-99) mg/dL 07/12/18 07/12/18 07/12/18 Range/Units 11:27 16:53 19:47 Plt Count (150-450) k/uL Neutrophils # (1.3-7.7) k/uL Lymphocytes # (1.0-4.8) k/uL BUN (9-20) mg/dL Glucose (74-99) mg/dL POC Glucose (mg/dL) 271 H 230 H 202 H (75-99) mg/dL Microbiology - Last 24 Hours (Table) 07/10/18 14:10 Blood Culture - Preliminary Blood No Growth after 48 hours Assessment and Plan (1) Acute exacerbation of chronic obstructive airways disease Current Visit: Yes Status: Acute Code(s): J44.1 - CHRONIC OBSTRUCTIVE PULMONARY DISEASE W (ACUTE) EXACERBATION SNOMED Code(s): 055682582 (2) Asthma Current Visit: No Status: Acute Code(s): J45.909 - UNSPECIFIED ASTHMA, UNCOMPLICATED SNOMED Code(s): 382062321 (3) COPD (chronic obstructive pulmonary disease) Current Visit: No Status: Acute Code(s): J44.9 - CHRONIC OBSTRUCTIVE PULMONARY DISEASE, UNSPECIFIED SNOMED Code(s): 78255525 (4) Diabetes Current Visit: No Status: Acute Code(s): E11.9 - TYPE 2 DIABETES MELLITUS WITHOUT COMPLICATIONS SNOMED Code(s): 01044766 (5) HTN (hypertension) Current Visit: No Status: Acute Code(s): I10 - ESSENTIAL (PRIMARY) HYPERTENSION SNOMED Code(s): 11990813 (6) Hyperlipemia Current Visit: No Status: Acute Code(s): E78.5 - HYPERLIPIDEMIA, UNSPECIFIED SNOMED Code(s): 85220262 Plan: Continue current treatment wean steroids soon continue updrafts and IV antibiotics discharge when stable
[2018-07-13] MEDS: methylPREDNISolone SOD SUCCI 40 MG/ML 1 ML VIAL IV SCH ×4 (00:10→23:23)
[2018-07-13 06:50] LABS: Glucose,Whole Blood 222 mg/dL (75-99)
[2018-07-13] MEDS: BUDESONIDE 0.5 MG/2 ML NEBU INHALATION SCH ×2 (08:47→19:54)
[2018-07-13] MEDS: IPRATROPIUM-ALBUTEROL 3 ML NEB INHALATION SCH ×4 (08:47→19:55)
[2018-07-13] MEDS: FORMOTEROL FUMARATE 20 MCG/2 ML NEBU INHALATION SCH ×2 (08:47→19:55)
[2018-07-13] MEDS: INSULIN ASPART 100 UNIT/ML 1 ML 10 ML VIAL SQ SCH ×4 (09:15→21:31)
[2018-07-13] MEDS: metFORMIN 500 MG TAB PO SCH ×2 (09:16→21:31)
[2018-07-13] MEDS: POTASSIUM CHLORIDE ER 20 MEQ TAB.ER PO SCH (09:16)
[2018-07-13] MEDS: CHOLECALCIFEROL 1,000 UNIT TAB PO SCH (09:16)
[2018-07-13] MEDS: ALLOPURINOL 100 MG TAB PO SCH (09:16)
[2018-07-13] MEDS: GUAIFENESIN PO SCH (09:32)
[2018-07-13] MEDS: PSEUDOEPHEDRINE PO SCH (09:32)
[2018-07-13] MEDS: [UNRECOGNIZED DRUG - OTHER] PO SCH (09:32)
[2018-07-13] MEDS: TAPENTADOL PO SCH ×4 (09:33→21:32)
[2018-07-13 10:06] LABS: ALT 20 U/L (21-72); AST 17 U/L (17-59); Alkaline Phosphatase 74 U/L (38-126); Anion Gap 10 mmol/L; Blood Urea Nitrogen 33 mg/dL (9-20); Calcium 9.5 mg/dL (8.4-10.2); Carbon Dioxide 29 mmol/L (22-30); Chloride 101 mmol/L (98-107); Glucose 299 mg/dL (74-99); Potassium 5.2 mmol/L (3.5-5.1); Sodium 140 mmol/L (137-145); Total Bilirubin 0.7 mg/dL (0.2-1.3); Total Protein 6.9 g/dL (6.3-8.2)
[2018-07-13 10:15] LABS: Basophils % (A) 0 %; Eosinophils % (A) 0 %; HCT 40.8 % (39.0-53.0); HGB 12.7 gm/dL (13.0-17.5); Lymphocytes # (A) 0.3 k/uL (1.0-4.8); Lymphocytes % (A) 3 %; MCH 28.3 pg (25.0-35.0); MCHC 31.2 g/dL (31.0-37.0); MCV 90.8 fL (80.0-100.0); Mean Platelet Volume 7.4; Monocytes # (A) 0.5 k/uL (0-1.0); Monocytes % (A) 5 %; Neutrophils # (A) 9.4 k/uL (1.3-7.7); Neutrophils % (A) 92 %; Platelet Count 89 k/uL (150-450); RDW 15.1 % (11.5-15.5); WBC 10.3 k/uL (3.8-10.6)
--- NOTE | 2018-07-13 11:26 | P.PN ---
Subjective Progress Note Date: 07/13/18 HPI: This is a 72-year-old male patient being seen examined and evaluated today for consultation. This patient is well-known to our services. This patient was seen in our office on 07/10/2018 and he presented quite dyspneic. The patient was struggling to breathe and he was quite wheezy. The patient was sent over to the emergency room for further evaluation and treatment ultimately he was admitted to the hospital for the same. Chest x-ray was obtained and does show chronic emphysema with parenchymal changes withassistance infiltrates at this time. The patient previously was being worked up at [facility] for a possible lung transplant however was dropped from the program after they did not feel the patient had enough support at home to go through the transplant process. Upon examination he is resting up in bed on 6 L of supplemental oxygen. He continues to have shortness of breath cough and wheeze however he is less wheezy today that he was yesterday in the office. The breathing treatments are helping him. His influenza swab was negative. He was started on antibiotics. Interval History: 07/12/18- patient is being seen examined and evaluated today on rounds. He is resting up in bed on 6 L of supplemental oxygen via nasal cannula. He continues to have shortness of breath cough and congestion however it is decreasing in severity. He is breathing of green sputum. He feels the nebulizers and steroid treatments are helping him as well as the antibiotics. Overall he feels improved from yesterday however is not at his baseline. All labs and reports have been reviewed. 07/13/18- patient is being seen examined and evaluated today on rounds. He is resting up in bed on supplemental oxygen. Does not feel quite at his baseline however he does continue to improve slowly. His steroids were tapered last night. Patient could be potentially transition to oral steroids in the morning possible discharge in the next 24 hours. He is afebrile no further complaints. Objective - Vital Signs Vital signs: Vital Signs Temp 98.3 F 07/13/18 07:00 Pulse 94 07/13/18 09:14 Resp 18 07/13/18 07:00 BP 159/96 07/13/18 07:00 Pulse Ox 98 07/12/18 23:00 Intake & Output 07/12/18 07/13/18 07/13/18 18:59 06:59 18:59 Other: # Voids 2 - Exam GENERAL EXAM: Alert, comfortable in no apparent distress. HEAD: Normocephalic. EYES: Normal reaction of pupils, equal size. NOSE: Clear with pink turbinates. THROAT: No erythema or exudates. NECK: No masses, no JVD. CHEST: No chest wall deformity. LUNGS: Lungs noted to have some expiratory wheezing, however improved since yesterday. Bases diminished CVS: S1 and S2 normal with no audible mumurs, regular rhythm. ABDOMEN: No hepatosplenomegaly, normal bowel sounds, no guarding or rigidity. EXTREMITIES: Trace edema noted, pedal pulses palpable. CENTRAL NERVOUS SYSTEM: No focal deficits, tone is normal in all 4 extremities. - Labs CBC & Chem 7: 07/13/18 09:35 07/13/18 09:35 Labs: Abnormal Lab Results - Last 24 Hours (Table) 07/12/18 07/12/18 07/12/18 Range/Units 11:27 16:53 19:47 Hgb (13.0-17.5) gm/dL Plt Count (150-450) k/uL Neutrophils # (1.3-7.7) k/uL Lymphocytes # (1.0-4.8) k/uL Potassium (3.5-5.1) mmol/L BUN (9-20) mg/dL Glucose (74-99) mg/dL POC Glucose (mg/dL) 271 H 230 H 202 H (75-99) mg/dL ALT (21-72) U/L 07/13/18 07/13/18 07/13/18 Range/Units 06:47 09:35 09:35 Hgb 12.7 L (13.0-17.5) gm/dL Plt Count 89 L (150-450) k/uL Neutrophils # 9.4 H (1.3-7.7) k/uL Lymphocytes # 0.3 L (1.0-4.8) k/uL Potassium 5.2 H (3.5-5.1) mmol/L BUN 33 H (9-20) mg/dL Glucose 299 H (74-99) mg/dL POC Glucose (mg/dL) 222 H (75-99) mg/dL ALT 20 L (21-72) U/L Microbiology - Last 24 Hours (Table) 07/10/18 14:10 Blood Culture - Preliminary Blood No Growth after 48 hours Assessment and Plan Assessment: Assessment Acute exacerbation of COPD Acute exacerbation of chronic severe asthma Acute on chronic hypoxic respiratory failure requiring supplemental oxygen Possible early pneumonia, cannot be excluded at this time CAD Hypertension Oxygen dependent Osteoarthritis Plan Respiratory status slowly improving Medications have been reviewed and will be continued as ordered. Antibiotics and steroid taper, possibly switch to oral steroids in the morning Chest x-ray reviewed Continue with pulmonary hygiene, coughing and deep breathing exercises, and supportive care. Supplemental oxygen to maintain oxygen saturations of 92% or better. Continue nebulizer treatments. GI and DVT prophylaxis. We will continue to monitor labs/results and adjust treatment as necessary. Further recommendations pending. Potential discharge in the next 24 hours I, the signing physician performed an examination of the patient, discussed and directed their management with the nurse practitioner. I have reviewed the nurse practitioner's note and agree with the documented findings, orders and plan of care. Nurse practitioner acting as a scribe for the signing physician.
[2018-07-13] MEDS: LEVOFLOXACIN 250 MG TAB PO SCH (11:52)
[2018-07-13 12:19] LABS: Glucose,Whole Blood 150 mg/dL (75-99)
[2018-07-13 17:11] LABS: Glucose,Whole Blood 147 mg/dL (75-99)
[2018-07-13 19:54] LABS: Glucose,Whole Blood 219 mg/dL (75-99)
[2018-07-13] MEDS: ATORVASTATIN 40 MG TAB PO SCH (20:19)
[2018-07-13] MEDS: ASPIRIN 81 MG PO SCH (20:20)
[2018-07-13] MEDS: SPIRONOLACTONE 25 MG TAB PO SCH (21:31)
[2018-07-13] MEDS: TAMSULOSIN 0.4 MG CAP.ER.24H PO SCH (21:31)
[2018-07-13] MEDS: LISINOPRIL-HCTZ 20-25 MG 1 EACH TAB PO SCH (21:31)
[2018-07-13] MEDS: INSULIN DETEMIR 100 UNIT/ML 10 ML VIAL SQ SCH (21:31)
[2018-07-13] MEDS: LORATADINE 10 MG TAB PO SCH (21:31)
[2018-07-13] MEDS: ALPRAZolam 1 MG TAB PO SCH (21:31)
--- NOTE | 2018-07-13 21:45 | P.PN ---
Subjective Progress Note Date: 07/13/18 Patient is a pleasant 72 year old white male who is admitted with exacerbation of COPD he seen by pulmonary and started on medications including antibiotics for purulent tracheobronchitis he's doing somewhat better today he is still on steroids but wishes to go home soon if he continues to improve I told him would check tomorrow he denies any chest pain denies any nausea vomiting denies any diarrhea he is progressively getting better with minimal complaints will await pulmonary's recommendation on weaning steroids and continue to follow patient Objective - Vital Signs Vital signs: Vital Signs Temp 98.3 F 07/13/18 19:18 Pulse 87 07/13/18 20:13 Resp 16 07/13/18 19:18 BP 149/80 07/13/18 19:18 Pulse Ox 94 L 07/13/18 19:18 Intake & Output 07/13/18 07/13/18 07/14/18 06:59 18:59 06:59 Intake Total 1500 Balance 1500 Intake: Oral 1500 - Exam GENERAL: This is a -year-old in no apparent distress at the time of examination. Pleasant and cooperative. HEENT: Head is atraumatic, normocephalic. Pupils are equal, round, and reactive to light. Sclerae anicteric. Conjunctivae are clear. Mucus membranes of the mouth are moist. Neck is supple. RESPIRATORY: wheezes bilateral , No use of accessory muscles. Patient maintaining oxygen saturation greater than 92%. No chest wall tenderness is noted on palpation or with deep breathing. CARDIOVASCULAR: Regular rate and rhythm. S1 and S2 noted. No JVD noted. No S3 or S4 noted. GASTROINTESTINAL: No distention noted. Abdomen soft and round. Normal active bowel sounds auscultated x 4 quadrants. No pain or tenderness noted upon palpation. INTEGUMENTARY: No cyanosis. No jaundice. No rashes noted. No cellulitis noted. Some stasis dermatitis in his lower extremities with edema bilateral EXTREMITIES: 2+ peripheral pulses. No evidence of peripheral edema. No calf tenderness noted. NEUROLOGIC: Cranial nerves II-XII intact. PSYCHIATRIC: Awake, alert, and oriented X 3. - Labs CBC & Chem 7: 07/13/18 09:35 07/13/18 09:35 Labs: Abnormal Lab Results - Last 24 Hours (Table) 07/13/18 07/13/18 07/13/18 Range/Units 06:47 09:35 09:35 Hgb 12.7 L (13.0-17.5) gm/dL Plt Count 89 L (150-450) k/uL Neutrophils # 9.4 H (1.3-7.7) k/uL Lymphocytes # 0.3 L (1.0-4.8) k/uL Potassium 5.2 H (3.5-5.1) mmol/L BUN 33 H (9-20) mg/dL Glucose 299 H (74-99) mg/dL POC Glucose (mg/dL) 222 H (75-99) mg/dL ALT 20 L (21-72) U/L 07/13/18 07/13/18 07/13/18 Range/Units 12:18 17:08 19:53 Hgb (13.0-17.5) gm/dL Plt Count (150-450) k/uL Neutrophils # (1.3-7.7) k/uL Lymphocytes # (1.0-4.8) k/uL Potassium (3.5-5.1) mmol/L BUN (9-20) mg/dL Glucose (74-99) mg/dL POC Glucose (mg/dL) 150 H 147 H 219 H (75-99) mg/dL ALT (21-72) U/L Microbiology - Last 24 Hours (Table) 07/10/18 14:10 Blood Culture - Preliminary Blood No Growth after 72 hours Assessment and Plan (1) Acute exacerbation of chronic obstructive airways disease Current Visit: Yes Status: Acute Code(s): J44.1 - CHRONIC OBSTRUCTIVE PULMONARY DISEASE W (ACUTE) EXACERBATION SNOMED Code(s): 992106774 (2) Asthma Current Visit: No Status: Acute Code(s): J45.909 - UNSPECIFIED ASTHMA, UNCOMPLICATED SNOMED Code(s): 195763314 (3) COPD (chronic obstructive pulmonary disease) Current Visit: No Status: Acute Code(s): J44.9 - CHRONIC OBSTRUCTIVE PULMONARY DISEASE, UNSPECIFIED SNOMED Code(s): 51309892 (4) Diabetes Current Visit: No Status: Acute Code(s): E11.9 - TYPE 2 DIABETES MELLITUS WITHOUT COMPLICATIONS SNOMED Code(s): 28052488 (5) HTN (hypertension) Current Visit: No Status: Acute Code(s): I10 - ESSENTIAL (PRIMARY) HYPERTENSION SNOMED Code(s): 35580834 (6) Hyperlipemia Current Visit: No Status: Acute Code(s): E78.5 - HYPERLIPIDEMIA, UNSPECIFIED SNOMED Code(s): 60422666 Plan: Continue current treatment wean steroids soon continue updrafts and IV antibiotics discharge when stable
[2018-07-14 07:03] LABS: Glucose,Whole Blood 200 mg/dL (75-99)
[2018-07-14 07:24] VITALS: BP 157/61; TEMP 97.7
[2018-07-14 07:30] LABS: Basophils % (A) 0 %; Eosinophils % (A) 0 %; HCT 43.4 % (39.0-53.0); HGB 13.6 gm/dL (13.0-17.5); Lymphocytes # (A) 0.3 k/uL (1.0-4.8); Lymphocytes % (A) 4 %; MCH 28.3 pg (25.0-35.0); MCHC 31.3 g/dL (31.0-37.0); MCV 90.5 fL (80.0-100.0); Mean Platelet Volume 7.1; Monocytes # (A) 0.3 k/uL (0-1.0); Monocytes % (A) 4 %; Neutrophils # (A) 7.1 k/uL (1.3-7.7); Neutrophils % (A) 92 %; RBC 4.79 m/uL (4.30-5.90); RDW 14.9 % (11.5-15.5); WBC 7.8 k/uL (3.8-10.6)
[2018-07-14] MEDS: methylPREDNISolone SOD SUCCI 40 MG/ML 1 ML VIAL IV SCH (07:32)
[2018-07-14] MEDS: metFORMIN 500 MG TAB PO SCH (07:32)
[2018-07-14] MEDS: CHOLECALCIFEROL 1,000 UNIT TAB PO SCH (07:32)
[2018-07-14] MEDS: ALLOPURINOL 100 MG TAB PO SCH (07:32)
[2018-07-14] MEDS: POTASSIUM CHLORIDE ER 20 MEQ TAB.ER PO SCH (07:32)
[2018-07-14] MEDS: INSULIN ASPART 100 UNIT/ML 1 ML 10 ML VIAL SQ SCH ×2 (07:34→12:08)
[2018-07-14 07:35] LABS: Platelet Count 69 k/uL (150-450)
[2018-07-14 08:07] LABS: ALT 22 U/L (21-72); AST 17 U/L (17-59); Alkaline Phosphatase 65 U/L (38-126); Anion Gap 11 mmol/L; Blood Urea Nitrogen 36 mg/dL (9-20); Calcium 9.2 mg/dL (8.4-10.2); Carbon Dioxide 32 mmol/L (22-30); Chloride 98 mmol/L (98-107); Glucose 163 mg/dL (74-99); Sodium 141 mmol/L (137-145); Total Bilirubin 0.9 mg/dL (0.2-1.3); Total Protein 6.9 g/dL (6.3-8.2)
[2018-07-14 08:11] LABS: Potassium 5.2 mmol/L (3.5-5.1)
[2018-07-14] MEDS: FORMOTEROL FUMARATE 20 MCG/2 ML NEBU INHALATION SCH (08:19)
[2018-07-14] MEDS: BUDESONIDE 0.5 MG/2 ML NEBU INHALATION SCH (08:19)
[2018-07-14] MEDS: IPRATROPIUM-ALBUTEROL 3 ML NEB INHALATION SCH ×3 (08:19→16:28)
[2018-07-14 08:22] VITALS: RESP 18
[2018-07-14] MEDS ORDERED: predniSONE 20 MG TAB PO SCH (10:15)
[2018-07-14] MEDS: [UNRECOGNIZED DRUG - OTHER] PO SCH (10:45)
[2018-07-14] MEDS: GUAIFENESIN PO SCH (10:45)
[2018-07-14] MEDS: PSEUDOEPHEDRINE PO SCH (10:45)
[2018-07-14] MEDS: TAPENTADOL PO SCH ×2 (10:46→12:10)
[2018-07-14 11:32] LABS: Glucose,Whole Blood 173 mg/dL (75-99)
[2018-07-14] MEDS: LEVOFLOXACIN 250 MG TAB PO SCH (12:08)
--- NOTE | 2018-07-14 12:28 | P.PN ---
<Chelsi Gardner E - Last Filed: 07/14/18 12:23> Subjective Progress Note Date: 07/14/18 HPI: This is a 72-year-old male patient being seen examined and evaluated today for consultation. This patient is well-known to our services. This patient was seen in our office on 07/10/2018 and he presented quite dyspneic. The patient was struggling to breathe and he was quite wheezy. The patient was sent over to the emergency room for further evaluation and treatment ultimately he was admitted to the hospital for the same. Chest x-ray was obtained and does show chronic emphysema with parenchymal changes withassistance infiltrates at this time. The patient previously was being worked up at [facility] for a possible lung transplant however was dropped from the program after they did not feel the patient had enough support at home to go through the transplant process. Upon examination he is resting up in bed on 6 L of supplemental oxygen. He continues to have shortness of breath cough and wheeze however he is less wheezy today that he was yesterday in the office. The breathing treatments are helping him. His influenza swab was negative. He was started on antibiotics. Interval History: 07/12/18- patient is being seen examined and evaluated today on rounds. He is resting up in bed on 6 L of supplemental oxygen via nasal cannula. He continues to have shortness of breath cough and congestion however it is decreasing in severity. He is breathing of green sputum. He feels the nebulizers and steroid treatments are helping him as well as the antibiotics. Overall he feels improved from yesterday however is not at his baseline. All labs and reports have been reviewed. 07/13/18- patient is being seen examined and evaluated today on rounds. He is resting up in bed on supplemental oxygen. Does not feel quite at his baseline however he does continue to improve slowly. His steroids were tapered last night. Patient could be potentially transition to oral steroids in the morning possible discharge in the next 24 hours. He is afebrile no further complaints. 07/14/18- patient is being seen examined and evaluated today on rounds. He is resting up in bed and is feeling much better today. He is on 6 L of supplemental oxygen via nasal cannula which is what he wears at home as well. He is requesting to go home. He feels much better. All labs and reports reviewed. Objective - Vital Signs Vital signs: Vital Signs Temp 97.7 F 07/14/18 07:00 Pulse 92 07/14/18 12:04 Resp 18 07/14/18 12:04 BP 157/61 07/14/18 07:00 Pulse Ox 95 07/14/18 08:19 Intake & Output 07/13/18 07/14/18 07/14/18 18:59 06:59 18:59 Intake Total 1500 Balance 1500 Intake: Oral 1500 - Exam GENERAL EXAM: Alert, comfortable in no apparent distress. HEAD: Normocephalic. EYES: Normal reaction of pupils, equal size. NOSE: Clear with pink turbinates. THROAT: No erythema or exudates. NECK: No masses, no JVD. CHEST: No chest wall deformity. LUNGS: Lungs noted to have some expiratory wheezing, however improved since yesterday. Bases diminished CVS: S1 and S2 normal with no audible mumurs, regular rhythm. ABDOMEN: No hepatosplenomegaly, normal bowel sounds, no guarding or rigidity. EXTREMITIES: Trace edema noted, pedal pulses palpable. CENTRAL NERVOUS SYSTEM: No focal deficits, tone is normal in all 4 extremities. - Labs CBC & Chem 7: 07/14/18 06:49 07/14/18 06:49 Labs: Abnormal Lab Results - Last 24 Hours (Table) 07/13/18 07/13/18 07/14/18 Range/Units 17:08 19:53 06:49 Plt Count 69 L (150-450) k/uL Lymphocytes # 0.3 L (1.0-4.8) k/uL Potassium (3.5-5.1) mmol/L Carbon Dioxide (22-30) mmol/L BUN (9-20) mg/dL Glucose (74-99) mg/dL POC Glucose (mg/dL) 147 H 219 H (75-99) mg/dL 07/14/18 07/14/18 07/14/18 Range/Units 06:49 07:02 11:30 Plt Count (150-450) k/uL Lymphocytes # (1.0-4.8) k/uL Potassium 5.2 H (3.5-5.1) mmol/L Carbon Dioxide 32 H (22-30) mmol/L BUN 36 H (9-20) mg/dL Glucose 163 H (74-99) mg/dL POC Glucose (mg/dL) 200 H 173 H (75-99) mg/dL Microbiology - Last 24 Hours (Table) 07/10/18 14:10 Blood Culture - Preliminary Blood No Growth after 72 hours Assessment and Plan Assessment: Assessment Acute exacerbation of COPD Acute exacerbation of chronic severe asthma Acute on chronic hypoxic respiratory failure requiring supplemental oxygen Possible early pneumonia, cannot be excluded at this time CAD Hypertension Oxygen dependent Osteoarthritis Plan Patient is cleared from pulmonary standpoint for discharge Antibiotics and steroid taper have been e-prescribed Respiratory status slowly improving Medications have been reviewed and will be continued as ordered. Chest x-ray reviewed Continue with pulmonary hygiene, coughing and deep breathing exercises, and supportive care. Supplemental oxygen to maintain oxygen saturations of 92% or better. Continue nebulizer treatments. GI and DVT prophylaxis. We will continue to monitor labs/results and adjust treatment as necessary. Further recommendations pending. I, the signing physician performed an examination of the patient, discussed and directed their management with the nurse practitioner. I have reviewed the nurse practitioner's note and agree with the documented findings, orders and plan of care. Nurse practitioner acting as a scribe for the signing physician. <Cat Jones A - Last Filed: 07/14/18 15:37> Objective - Vital Signs Vital signs: Vital Signs Temp 97.7 F 07/14/18 07:00 Pulse 92 07/14/18 12:04 Resp 18 07/14/18 12:04 BP 157/61 07/14/18 07:00 Pulse Ox 95 07/14/18 08:19 Intake & Output 07/13/18 07/14/18 07/14/18 18:59 06:59 18:59 Intake Total 1500 Balance 1500 Intake: Oral 1500 Other: # Voids 3 - Labs CBC & Chem 7: 07/14/18 06:49 07/14/18 06:49 Labs: Abnormal Lab Results - Last 24 Hours (Table) 07/13/18 07/13/18 07/14/18 Range/Units 17:08 19:53 06:49 Plt Count 69 L (150-450) k/uL Lymphocytes # 0.3 L (1.0-4.8) k/uL Potassium (3.5-5.1) mmol/L Carbon Dioxide (22-30) mmol/L BUN (9-20) mg/dL Glucose (74-99) mg/dL POC Glucose (mg/dL) 147 H 219 H (75-99) mg/dL 07/14/18 07/14/18 07/14/18 Range/Units 06:49 07:02 11:30 Plt Count (150-450) k/uL Lymphocytes # (1.0-4.8) k/uL Potassium 5.2 H (3.5-5.1) mmol/L Carbon Dioxide 32 H (22-30) mmol/L BUN 36 H (9-20) mg/dL Glucose 163 H (74-99) mg/dL POC Glucose (mg/dL) 200 H 173 H (75-99) mg/dL Microbiology - Last 24 Hours (Table) 07/10/18 14:10 Blood Culture - Preliminary Blood No Growth after 72 hours Assessment and Plan Assessment: OK to DC from pulmonary standpoint. Follow up in 2-3 days. ~Cat Jones DO
[2018-07-14 16:38] VITALS: PULSE 92
[2018-07-14 16:46] LABS: Glucose,Whole Blood 127 mg/dL (75-99)
== END 2018-07-14 17:08 | disposition home or self-care (01) | DRG 190 ==
LOC: EC 12:18 → 3NMEDONC 17:18 → 4SSUR 07-11 00:55 → OBSVTOIN 07-12 09:28 → 4SSUR 07-13 14:10
PROVIDERS: ADMIT Family Medicine; ATTEND Family Medicine
DX: J43.9 Emphysema, unspecified (principal); J96.21 Acute and chronic respiratory failure with hypoxia; J18.9 Pneumonia, unspecified organism; J45.901 Unspecified asthma with (acute) exacerbation; E78.5 Hyperlipidemia, unspecified; F41.9 Anxiety disorder, unspecified; I11.0 Hypertensive heart disease with heart failure; I25.10 Atherosclerotic heart disease of native coronary artery without angina pectoris; E11.40 Type 2 diabetes mellitus with diabetic neuropathy, unspecified; I50.9 Heart failure, unspecified; F40.240 Claustrophobia; Z96.653 Presence of artificial knee joint, bilateral; M19.90 Unspecified osteoarthritis, unspecified site; Z79.4 Long term (current) use of insulin; Z79.82 Long term (current) use of aspirin; Z79.899 Other long term (current) drug therapy; Z82.49 Family history of ischemic heart disease and other diseases of the circulatory system; Z85.828 Personal history of other malignant neoplasm of skin; Z87.891 Personal history of nicotine dependence; Z99.81 Dependence on supplemental oxygen; Z79.52 Long term (current) use of systemic steroids; Z76.82 Awaiting organ transplant status; Z95.5 Presence of coronary angioplasty implant and graft
CPT/HCPCS: 36415; 71046; 80053; 82550; 82553; 83036; 83880; 84484; 85025; 85610; 85730; 87040; 93005; 94640; 94760; 96374; 99285

== ENCOUNTER → 2018-08-22 | Outpatient (CLI) | payer MEDICARE, BC | LOC: PROCWHC3 15:52 | PROVIDERS: ATTEND Internal Medicine | DX: J45.50 Severe persistent asthma, uncomplicated (principal); J44.9 Chronic obstructive pulmonary disease, unspecified; G47.34 Idiopathic sleep related nonobstructive alveolar hypoventilation | CPT/HCPCS: 87502 ==

== ENCOUNTER 2018-09-21 14:51 | Inpatient (IN) | payer MEDICARE, BC ==
[2018-09-21] MEDS ORDERED: ALBUTEROL NEBULIZED 2.5 MG/3 ML INHALATION STA (15:12)
[2018-09-21] MEDS ORDERED: SODIUM CHLORIDE 0.9% 1,000 ML IV STA (15:12)
[2018-09-21] MEDS ORDERED: IPRATROPIUM 0.5 MG/2.5 ML NEBU INHALATION STA (15:12)
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
[2018-09-21 15:46] LABS: Albumin 3.8 g/dL (3.5-5.0); Calcium 9.3 mg/dL (8.4-10.2); Magnesium 1.1 mg/dL (1.6-2.3); Potassium 4.4 mmol/L (3.5-5.1); Total Bilirubin 1.2 mg/dL (0.2-1.3); Total Protein 6.2 g/dL (6.3-8.2)
[2018-09-21 15:47] LABS: Partial Thromboplastin Time 25.3 sec (22.0-30.0); Prothrombin Time 10.6 sec (9.0-12.0)
[2018-09-21 15:49] LABS: Anisocytosis Slight; Basophils % (A) 0 %; Eosinophils % (A) 0 %; HCT 39.8 % (39.0-53.0); HGB 12.9 gm/dL (13.0-17.5); Lymphocytes # (A) 0.5 k/uL (1.0-4.8); Lymphocytes % (A) 4 %; MCH 28.7 pg (25.0-35.0); MCHC 32.4 g/dL (31.0-37.0); MCV 88.7 fL (80.0-100.0); Monocytes # (A) 0.7 k/uL (0-1.0); Monocytes % (A) 5 %; Neutrophils # (A) 12.2 k/uL (1.3-7.7); Neutrophils % (A) 90 %; Platelet Count 118 k/uL (150-450); Poikilocytosis Slight; RBC 4.48 m/uL (4.30-5.90); WBC 13.5 k/uL (3.8-10.6)
--- NOTE | 2018-09-21 16:09 | XR ---
EXAMINATION TYPE: XR chest 2V DATE OF EXAM: 09/21/2018 COMPARISON: July 10, 2018 HISTORY: Shortness of breath TECHNIQUE: Frontal and lateral views of the chest are obtained. FINDINGS: Scattered senescent parenchymal changes noted. Hyperinflation compatible with COPD. Left lower lobe infiltrate. Correlate for pneumonia. Appropriate follow-up advised. Heart size is stable. Mediastinal structures are stable and grossly unremarkable. No evidence for hilar prominence. Degenerative changes dorsal spine. IMPRESSION: 1. Left lower lobe infiltrate. Correlate for pneumonia. Appropriate follow-up advised.
[2018-09-21] MEDS ORDERED: AZITHROMYCIN 500 MG in SODIUM CHLORIDE 0.9% 250 ML IVPB STA (17:36)
[2018-09-21] MEDS ORDERED: PNEUMONIA PROTOCOL UTILIZED 1 EACH MISC PO PRN (17:36)
[2018-09-21] MEDS: SODIUM CHLORIDE 0.9% 1,000 ML IV SCH ×2 (18:19→18:21)
[2018-09-21 21:02] LABS: Glucose,Whole Blood 422 mg/dL (75-99)
[2018-09-21 21:22] VITALS: BMI 33.9
[2018-09-21] MEDS ORDERED: FUROSEMIDE 40 MG TAB PO PRN (22:10)
[2018-09-21] MEDS ORDERED: INSULIN DETEMIR (LEVEMIR) 100 UNIT/ML SYR SQ PRN (22:30)
[2018-09-21] MEDS: metFORMIN 500 MG TAB PO SCH (23:02)
[2018-09-21] MEDS: ATORVASTATIN 40 MG TAB PO SCH (23:02)
[2018-09-21] MEDS: LORATADINE 10 MG TAB PO SCH (23:03)
[2018-09-21] MEDS: SPIRONOLACTONE 25 MG TAB PO SCH (23:03)
[2018-09-21] MEDS: ASPIRIN 81 MG PO SCH (23:03)
[2018-09-21] MEDS: ALPRAZolam 0.5 MG TAB PO SCH (23:03)
[2018-09-21] MEDS: LISINOPRIL-HCTZ 20-25 MG 1 EACH TAB PO SCH (23:03)
[2018-09-21] MEDS: TAMSULOSIN 0.4 MG CAP.ER.24H PO SCH (23:03)
[2018-09-21] MEDS: INSULIN ASPART (NovoLOG) 100 UNIT/ML VIAL SQ SCH (23:04)
[2018-09-21] MEDS: methylPREDNISolone SOD SUCCI 125 MG/2 ML VIAL IV SCH (23:08)
[2018-09-22] MEDS: methylPREDNISolone SOD SUCCI 125 MG/2 ML VIAL IV SCH ×4 (06:24→23:51)
--- NOTE | 2018-09-22 07:22 | XR ---
EXAMINATION TYPE: XR chest 2V DATE OF EXAM: 09/22/2018 COMPARISON: 09/21/2018 HISTORY: Shortness of breath, hemoptysis and pneumonia. TECHNIQUE: Frontal and lateral views of the chest are obtained. FINDINGS: Reticular opacity is seen throughout the lungs most pronounced in the left lung base. Gage bryan left basilar opacity is improving in comparison to the prior. Trace right pleural effusion blunts the costophrenic angle. No pneumothorax is seen. Generalized osseous demineralization is present. Ca rdia mediastinal silhouette is mildly enlarged. Spinal nerve stimulator is partially visualized. IMPRESSION: Improving left basilar reticular opacity favored to represent resolving pneumonia superi mposed upon pulmonary fibrosis.
[2018-09-22 07:24] LABS: Glucose,Whole Blood 270 mg/dL (75-99)
[2018-09-22] MEDS: IPRATROPIUM-ALBUTEROL 3 ML NEB INHALATION PRN (07:34)
[2018-09-22] MEDS: BUDESONIDE 0.5 MG/2 ML NEBU INHALATION SCH ×2 (07:34→19:50)
[2018-09-22] MEDS ORDERED: ENOXAPARIN 40 MG/0.4 ML SYRINGE SQ SCH (09:00)
[2018-09-22] MEDS: INSULIN ASPART (NovoLOG) 100 UNIT/ML VIAL SQ SCH ×4 (09:05→21:09)
[2018-09-22] MEDS: ALLOPURINOL 100 MG TAB PO SCH (09:06)
[2018-09-22] MEDS: POTASSIUM CHLORIDE ER 20 MEQ TAB.ER PO SCH (09:06)
[2018-09-22] MEDS: ALPRAZolam 0.5 MG TAB PO SCH ×2 (10:04→21:10)
[2018-09-22] MEDS: metFORMIN 500 MG TAB PO SCH ×2 (10:05→21:10)
[2018-09-22 11:33] LABS: Glucose,Whole Blood 265 mg/dL (75-99)
--- NOTE | 2018-09-22 16:36 | CONS ---
CONSULTATION Mandeep Mckeon is a 73-year-old male who presented to the ED with a 2-day history of cough. There has been associated with scant amount of blood along with some fever for at least 1 day's duration. He was seen in the ED, thought to have had a left lower zone infiltrate and was admitted for further evaluation and management. He had been quite short of breath, was wheezing for the 2 days prior to coming in as well. He has a known history of severe asthma with COPD, had been worked up for possible lung transplant. Some background baseline fibrosis as well. He has been on anti eosinophilic biologic Fasenra, and prior to that had been on anti IgE treatment with Xolair, but does not think he sees much difference at this time. He does not have any chest pain. PAST MEDICAL HISTORY: Positive for asthma, COPD, coronary artery disease status post stent placement, obstructive sleep apnea, diabetes mellitus type 2, obesity, bilateral knee arthroplasty, facial surgery with previous reconstruction, neuropathy, jaw fracture. FAMILY HISTORY: Positive for coronary artery disease in his father, renal failure for which his mother had to be on dialysis. REVIEW OF SYSTEMS: Noncontributory other than for what is described in history of present illness and past medical history. MEDICATIONS: Prior to admission were insulin, Flomax, Aldactone, quinapril with hydrochlorothiazide, Lantus insulin, Lasix, Zyrtec, Fasenra, Lipitor, aspirin, Proventil HFA, Brovana, prednisone 10 mg a day. Nucynta, Spiriva, Pulmicort, Zyloprim, albuterol, Xanax, Klor- Con 10, Mucinex D, metformin. PHYSICAL EXAMINATION: Respiratory rate is 18, pulse rate of 73, O2 saturation on 8 L by nasal cannula is 97%. Temperature is 98 degrees Fahrenheit with a T-max of 99.2. HEENT reveals pupils are equal. There is redundant tissue in the posterior pharynx. Chest reveals decreased breath sounds. Prolonged exhalation with expiratory wheezing. Cardiovascular system reveals an S1, S2. Abdomen is soft. There is 1+ to 2+ pedal edema. LABS: Reveal a white count of 13.5, hemoglobin of 12.9, platelet count of 118,000. 12.2 1000 neutrophils. Sodium 141, potassium 4.4, chloride 106, bicarb 27, BUN 21, creatinine of 1.17, albumin of 3.8, magnesium of 1.1. Chest x-ray shows some background fibrosis with hyperinflation and left lower zone infiltrate. The patient's allergies were reviewed and are part of the electronic chart. IMPRESSION: At this time. 1. Severe asthma with chronic obstructive pulmonary disease with acute exacerbation. 2. Pneumonia. 3. Hemoptysis. 4. Acute on chronic respiratory failure. 5. Obstructive sleep apnea. 6. Early cor pulmonale. PLAN: At this point in time, keep him on GI and DVT prophylaxis. Would discontinue enoxaparin and keep him on subcu heparin only as this may be reversed fairly quickly in case he does have ongoing bleeding, which I believe is probably due to airway inflammation. Would continue high-dose IV steroids, keep him on aerosolized steroids. Add montelukast to his regimen as well. Depending on how he does, we should make further changes to his care. YUVAL / MARSHALL: [id number] /
[2018-09-22 16:47] LABS: Glucose,Whole Blood 205 mg/dL (75-99)
[2018-09-22] MEDS ORDERED: AZITHROMYCIN 500 MG TAB PO SCH (18:00)
[2018-09-22 19:00] LABS: Hemoglobin A1C 7.4 % (4.0-6.0)
[2018-09-22 20:31] LABS: Glucose,Whole Blood 307 mg/dL (75-99)
[2018-09-22] MEDS ORDERED: MONTELUKAST 10 MG TAB PO SCH (21:00)
[2018-09-22] MEDS: LISINOPRIL-HCTZ 20-25 MG 1 EACH TAB PO SCH (21:10)
[2018-09-22] MEDS: FAMOTIDINE 20 MG TAB PO SCH (21:10)
[2018-09-22] MEDS: TAMSULOSIN 0.4 MG CAP.ER.24H PO SCH (21:10)
[2018-09-22] MEDS: ATORVASTATIN 40 MG TAB PO SCH (21:10)
[2018-09-22] MEDS: ASPIRIN 81 MG PO SCH (21:10)
[2018-09-22] MEDS: LORATADINE 10 MG TAB PO SCH (21:10)
[2018-09-22] MEDS: HEPARIN SODIUM,PORCINE 5,000 UNIT/ML 1 ML VIAL SQ SCH (21:10)
[2018-09-22] MEDS: SPIRONOLACTONE 25 MG TAB PO SCH (21:10)
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
[2018-09-22] MEDS ORDERED: INSULIN DETEMIR (LEVEMIR) 100 UNIT/ML SYR SQ SCH (21:30)
[2018-09-22] MEDS ORDERED: INSULIN ASPART (NovoLOG) 100 UNIT/ML VIAL SQ SCH (22:21)
[2018-09-23] MEDS: methylPREDNISolone SOD SUCCI 125 MG/2 ML VIAL IV SCH ×2 (05:53→12:27)
[2018-09-23 07:37] LABS: Glucose,Whole Blood 198 mg/dL (75-99)
[2018-09-23 08:29] LABS: Anisocytosis Slight; Basophils % (A) 0 %; Eosinophils % (A) 0 %; HCT 38.4 % (39.0-53.0); HGB 12.4 gm/dL (13.0-17.5); Hypochromasia Slight; Lymphocytes # (A) 0.4 k/uL (1.0-4.8); Lymphocytes % (A) 3 %; MCH 29.1 pg (25.0-35.0); MCHC 32.4 g/dL (31.0-37.0); Mean Platelet Volume 7.6; Monocytes # (A) 0.3 k/uL (0-1.0); Monocytes % (A) 3 %; Neutrophils # (A) 10.4 k/uL (1.3-7.7); Neutrophils % (A) 94 %; Platelet Count 111 k/uL (150-450); Poikilocytosis Slight; RBC 4.27 m/uL (4.30-5.90); RDW 16.2 % (11.5-15.5); WBC 11.1 k/uL (3.8-10.6)
[2018-09-23 08:45] LABS: Calcium 8.8 mg/dL (8.4-10.2); Potassium 5.1 mmol/L (3.5-5.1)
[2018-09-23] MEDS: IPRATROPIUM-ALBUTEROL 3 ML NEB INHALATION PRN ×2 (09:19→13:16)
[2018-09-23] MEDS: BUDESONIDE 0.5 MG/2 ML NEBU INHALATION SCH (09:19)
[2018-09-23] MEDS: POTASSIUM CHLORIDE ER 20 MEQ TAB.ER PO SCH (09:20)
[2018-09-23] MEDS: ALPRAZolam 0.5 MG TAB PO SCH (09:22)
[2018-09-23] MEDS: ALLOPURINOL 100 MG TAB PO SCH (09:22)
[2018-09-23] MEDS: FAMOTIDINE 20 MG TAB PO SCH (09:23)
[2018-09-23] MEDS: INSULIN ASPART (NovoLOG) 100 UNIT/ML VIAL SQ SCH ×2 (09:23→12:28)
[2018-09-23] MEDS: HEPARIN SODIUM,PORCINE 5,000 UNIT/ML 1 ML VIAL SQ SCH (09:23)
[2018-09-23] MEDS: metFORMIN 500 MG TAB PO SCH (09:23)
[2018-09-23 12:06] LABS: Glucose,Whole Blood 239 mg/dL (75-99)
--- NOTE | 2018-09-23 12:28 | P.PN ---
Subjective Progress Note Date: 09/23/18 09/23/2017: Patient seen and examined. Patient is sitting up in the chair. He is currently on 8 L high flow nasal cannula with O2 saturation 90%. The patient states he feels really good and is hoping to go home today. He patient states his breathing is at baseline. He still is coughing and has trace amount of blood. He states it is starting to improve. He has been afebrile and hemodynamically stable. Hemoglobin is stable. Objective - Vital Signs Vital signs: Vital Signs Temp 98.8 F 09/23/18 07:00 Pulse 92 09/23/18 09:35 Resp 22 09/23/18 07:00 BP 139/83 09/23/18 07:00 Pulse Ox 96 09/23/18 09:19 Intake & Output 09/22/18 09/23/18 09/23/18 18:59 06:59 18:59 Intake Total 230 Balance 230 Intake: Oral 230 Other: Voiding Method Toilet # Voids 2 0 - Exam Gen.: Patient is alert and oriented 3, no acute distress Cardiovascular: Regular rate and rhythm, S1/S2 Lungs: Bilateral crackles Abdomen: Soft nontender nondistended positive bowel sounds Extremities: No edema - Labs CBC & Chem 7: 09/23/18 08:08 09/23/18 08:08 Labs: Abnormal Lab Results - Last 24 Hours (Table) 09/21/18 09/22/18 09/22/18 Range/Units 15:15 16:41 20:30 WBC (3.8-10.6) k/uL RBC (4.30-5.90) m/uL Hgb (13.0-17.5) gm/dL Hct (39.0-53.0) % RDW (11.5-15.5) % Plt Count (150-450) k/uL Neutrophils # (1.3-7.7) k/uL Lymphocytes # (1.0-4.8) k/uL Carbon Dioxide (22-30) mmol/L BUN (9-20) mg/dL Glucose (74-99) mg/dL POC Glucose (mg/dL) 205 H 307 H (75-99) mg/dL Hemoglobin A1c 7.4 H (4.0-6.0) % 09/23/18 09/23/18 09/23/18 Range/Units 07:11 08:08 08:08 WBC 11.1 H (3.8-10.6) k/uL RBC 4.27 L (4.30-5.90) m/uL Hgb 12.4 L (13.0-17.5) gm/dL Hct 38.4 L (39.0-53.0) % RDW 16.2 H (11.5-15.5) % Plt Count 111 L (150-450) k/uL Neutrophils # 10.4 H (1.3-7.7) k/uL Lymphocytes # 0.4 L (1.0-4.8) k/uL Carbon Dioxide 31 H (22-30) mmol/L BUN 28 H (9-20) mg/dL Glucose 219 H (74-99) mg/dL POC Glucose (mg/dL) 198 H (75-99) mg/dL Hemoglobin A1c (4.0-6.0) % 09/23/18 Range/Units 12:00 WBC (3.8-10.6) k/uL RBC (4.30-5.90) m/uL Hgb (13.0-17.5) gm/dL Hct (39.0-53.0) % RDW (11.5-15.5) % Plt Count (150-450) k/uL Neutrophils # (1.3-7.7) k/uL Lymphocytes # (1.0-4.8) k/uL Carbon Dioxide (22-30) mmol/L BUN (9-20) mg/dL Glucose (74-99) mg/dL POC Glucose (mg/dL) 239 H (75-99) mg/dL Hemoglobin A1c (4.0-6.0) % Microbiology - Last 24 Hours (Table) 09/22/18 09:16 Gram Stain - Preliminary Sputum Sputum Culture - Preliminary 09/21/18 15:15 Blood Culture - Preliminary Blood No Growth after 24 hours Assessment and Plan Assessment: Acute exacerbation of COPD Acute exacerbation of chronic severe asthma IPF Acute on chronic hypoxic respiratory failure requiring supplemental oxygen CAD Hypertension Oxygen dependent Osteoarthritis DM2 Dyslipidemia Plan Patient is cleared from pulmonary standpoint for discharge Antibiotics and steroid taper have been e-prescribed Respiratory status slowly improving Medications have been reviewed and will be continued as ordered. Chest x-ray reviewed Continue with pulmonary hygiene, coughing and deep breathing exercises, and supportive care. Supplemental oxygen to maintain oxygen saturations of 92% or better. Continue nebulizer treatments. GI and DVT prophylaxis. Follow up in pulmonary office next week.
[2018-09-23 15:25] VITALS: BP 134/78; PULSE 86; RESP 16; TEMP 98
== END 2018-09-23 15:13 | disposition home or self-care (01) | DRG 193 ==
LOC: EC 14:51 → 4SSUR 17:36
PROVIDERS: ADMIT Family Medicine; ATTEND Family Medicine
DX: J18.9 Pneumonia, unspecified organism (principal); J96.21 Acute and chronic respiratory failure with hypoxia; J44.1 Chronic obstructive pulmonary disease with (acute) exacerbation; R04.2 Hemoptysis; J45.51 Severe persistent asthma with (acute) exacerbation; J44.0 Chronic obstructive pulmonary disease with (acute) lower respiratory infection; I27.81 Cor pulmonale (chronic); E11.40 Type 2 diabetes mellitus with diabetic neuropathy, unspecified; E11.65 Type 2 diabetes mellitus with hyperglycemia; I11.0 Hypertensive heart disease with heart failure; I50.9 Heart failure, unspecified; J84.112 Idiopathic pulmonary fibrosis; I45.10 Unspecified right bundle-branch block; E78.5 Hyperlipidemia, unspecified; F41.9 Anxiety disorder, unspecified; G47.33 Obstructive sleep apnea (adult) (pediatric); I25.10 Atherosclerotic heart disease of native coronary artery without angina pectoris; M19.90 Unspecified osteoarthritis, unspecified site; E66.9 Obesity, unspecified; N42.9 Disorder of prostate, unspecified; R60.0 Localized edema; Z79.4 Long term (current) use of insulin; Z79.82 Long term (current) use of aspirin; Z79.899 Other long term (current) drug therapy; Z79.52 Long term (current) use of systemic steroids; Z99.81 Dependence on supplemental oxygen; Z96.653 Presence of artificial knee joint, bilateral; Z95.5 Presence of coronary angioplasty implant and graft; Z87.891 Personal history of nicotine dependence; Z85.828 Personal history of other malignant neoplasm of skin; Z68.31 Body mass index [BMI] 31.0-31.9, adult; Z82.49 Family history of ischemic heart disease and other diseases of the circulatory system; Z84.1 Family history of disorders of kidney and ureter
CPT/HCPCS: 36415; 71046; 80048; 80053; 83036; 83735; 83880; 84484; 85025; 85610; 85730; 87040; 87070; 87205; 93005; 94640; 94760; 96361; 96365; 99285

== ENCOUNTER → 2018-10-13 | Outpatient (CLI) | payer MEDICARE, BC ==
--- NOTE | 2018-10-15 20:38 | US ---
EXAMINATION TYPE: US venous doppler duplex LE LT DATE OF EXAM: 10/13/2018 6:16 PM COMPARISON: Left lower extremity venous ultrasound December 10, 2017 CLINICAL HISTORY: I87.2 Acute venous stasis dermatitis, LLE. Edema and redness left lower leg, wound left lateral lower leg near ankle for 2 weeks LOWER EXTREMITY VENOUS INSUFFICIENCY SIDE PERFORMED: left 1) Color flow is present and patency is documented in the following vessels. No DVT or SVT is noted . EIV Common Femoral Vein Deep Femoral Vein Femoral Vein Popliteal Vein Proximal Calf Veins Greater Saph Vein Upper Small Saph Vein 2) There is venous reflux noted at the following venous levels: none No evidence of acute DVT as visualized. Exam limitations due to large amount of soft tissue edema IMPRESSION: Slightly suboptimal study without acute deep or superficial venous thrombosis. No signifi cant venous reflux noted.
== END | disposition home or self-care (01) ==
LOC: RADUSMAIN 17:38
PROVIDERS: ATTEND Internal Medicine
DX: I87.2 Venous insufficiency (chronic) (peripheral) (principal)

== ENCOUNTER 2018-11-21 19:53 | Inpatient (IN) | payer MEDICARE, BC ==
[2018-11-21] MEDS ORDERED: IPRATROPIUM 0.5 MG/2.5 ML NEBU INHALATION STA (20:06)
[2018-11-21] MEDS ORDERED: LORazepam 2 MG/ML INJ IV STA (20:06)
[2018-11-21] MEDS ORDERED: ALBUTEROL NEBULIZED 2.5 MG/3 ML INHALATION STA (20:06)
[2018-11-21] MEDS ORDERED: methylPREDNISolone SOD SUCCI 125 MG/2 ML VIAL IV STA (20:06)
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
--- NOTE | 2018-11-21 20:57 | XR ---
EXAMINATION TYPE: XR chest 1V portable DATE OF EXAM: 11/21/2018 COMPARISON: 09/22/2018 HISTORY: Short of breath TECHNIQUE: Single frontal view of the chest is obtained. FINDINGS: Heart appears enlarged. There is no gross heart failure. There are chest leads. Costophren ic angles are clear. There is slight coarsening of the lung markings. IMPRESSION: Cardiomegaly and mild pulmonary fibrosis. No acute lung disease. There is clearing of th e apparent heart failure and pleural fluid compared to old exam.
[2018-11-21 21:26] LABS: Basophils % (A) 0 %; Eosinophils % (A) 0 %; HCT 40.5 % (39.0-53.0); HGB 12.8 gm/dL (13.0-17.5); Lymphocytes # (A) 0.6 k/uL (1.0-4.8); Lymphocytes % (A) 8 %; MCH 29.4 pg (25.0-35.0); MCHC 31.7 g/dL (31.0-37.0); MCV 92.8 fL (80.0-100.0); Mean Platelet Volume 7.9; Monocytes # (A) 0.3 k/uL (0-1.0); Monocytes % (A) 5 %; Neutrophils # (A) 6.1 k/uL (1.3-7.7); Neutrophils % (A) 85 %; RBC 4.37 m/uL (4.30-5.90); RDW 15.7 % (11.5-15.5); WBC 7.2 k/uL (3.8-10.6)
[2018-11-21 21:31] LABS: Calcium 8.7 mg/dL (8.4-10.2); Magnesium 1.8 mg/dL (1.6-2.3); Total Bilirubin 0.9 mg/dL (0.2-1.3); Total Protein 6.4 g/dL (6.3-8.2)
[2018-11-21 21:32] LABS: Platelet Count 98 k/uL (150-450)
[2018-11-21 21:54] LABS: D-Dimer 0.3 mg/L FEU (<0.60); INR 0.9 (<1.2); Prothrombin Time 9.8 sec (9.0-12.0)
[2018-11-21] MEDS ORDERED: ALBUTEROL NEBULIZED 2.5 MG/3 ML INHALATION PRN (21:58)
[2018-11-21] MEDS: SODIUM CHLORIDE 0.9% 1,000 ML IV SCH (22:53)
[2018-11-22 00:18] VITALS: BMI 35.2
[2018-11-22] MEDS: methylPREDNISolone SOD SUCCI 125 MG/2 ML VIAL IV SCH ×5 (00:22→23:18)
[2018-11-22 00:31] LABS: Glucose,Whole Blood 306 mg/dL (75-99)
[2018-11-22] MEDS: INSULIN ASPART (NovoLOG) 100 UNIT/ML VIAL SQ SCH ×5 (00:45→21:29)
[2018-11-22 06:49] LABS: Glucose,Whole Blood 291 mg/dL (75-99)
[2018-11-22] MEDS ORDERED: ALBUTEROL NEBULIZED 2.5 MG/3 ML INHALATION PRN (08:50)
[2018-11-22] MEDS: IPRATROPIUM-ALBUTEROL 3 ML NEB INHALATION SCH ×4 (08:51→19:14)
[2018-11-22] MEDS: SODIUM CHLORIDE 0.9% 1,000 ML IV SCH ×2 (09:38→17:42)
[2018-11-22] MEDS: ENOXAPARIN 40 MG/0.4 ML SYRINGE SQ SCH (09:39)
[2018-11-22] MEDS: LISINOPRIL 20 MG TAB PO SCH (09:39)
[2018-11-22] MEDS ORDERED: SODIUM CHLORIDE 0.65% NASAL SPRAY 44 ML BTL NASAL PRN (10:57)
[2018-11-22] MEDS ORDERED: FUROSEMIDE 40 MG TAB PO PRN (11:39)
[2018-11-22] MEDS ORDERED: ALBUTEROL NEBULIZED 2.5 MG/3 ML INHALATION SCH (12:00)
[2018-11-22] MEDS: FORMOTEROL FUMARATE 20 MCG/2 ML NEBU INHALATION SCH ×2 (12:05→19:14)
[2018-11-22 12:21] LABS: Glucose,Whole Blood 288 mg/dL (75-99)
[2018-11-22] MEDS: guaiFENesin 600 MG TABLET.ER PO SCH (12:31)
[2018-11-22] MEDS: TAPENTADOL HCL 100 MG PO SCH ×3 (12:38→21:08)
[2018-11-22] MEDS ORDERED: ISOSORBIDE MONONITRATE ER 30 MG TAB.ER.24H PO STA (12:59)
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
[2018-11-22 16:58] LABS: Glucose,Whole Blood 301 mg/dL (75-99)
[2018-11-22] MEDS: TAMSULOSIN 0.4 MG CAP.ER.24H PO SCH (17:42)
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
[2018-11-22] MEDS: BUDESONIDE 0.5 MG/2 ML NEBU INHALATION SCH (19:14)
[2018-11-22 20:43] LABS: ABG Base Excess 1.9 mmol/L; ABG HCO3 27 mmol/L (21-25); ABG Oxygen Saturation 95.6 % (94-97); ABG PCO2 48 mmHg (35-45); ABG PH 7.36 (7.35-7.45); ABG PO2 78 mmHg (83-108); ABG TCO2 29 mmol/L (19-24); Allen Test Performed? Yes
--- NOTE | 2018-11-22 20:59 | CT ---
EXAMINATION TYPE: CT chest wo con DATE OF EXAM: 11/22/2018 COMPARISON: 09/19/2017 HISTORY: SOB CT DLP: 672.3 mGycm. Automated Exposure Control for Dose Reduction was Utilized. TECHNIQUE: CT scan of the thorax is performed without IV contrast. FINDINGS: There is diffuse pulmonary emphysema. There is some reticular infiltrate in both upper lobes consiste nt with scarring. Thoracic aorta is atheromatous. There is minimal reticular density posterior right lower lobe. There is similar change at the left posterior lung base. There is no suspicious pulmonary mass. There is no pleural effusion. There is no pericardial effusion. There is coronary artery calci fication. There is no mediastinal adenopathy. There are no hilar masses. There is hypertrophic spurring throughout the thoracic spine. I see no bony destructive process. Ther e is neural stimulator in the lower thoracic spine. IMPRESSION: Emphysema. Reticular and linear pulmonary bilateral infiltrates consistent with scarring and atelectasis. There is clearing of a 3 cm area of consolidation in the posterior lateral right low er lobe compared to old exam. No suspicious pulmonary mass.
[2018-11-22 21:22] LABS: Glucose,Whole Blood 338 mg/dL (75-99)
[2018-11-22] MEDS: ASPIRIN 81 MG PO SCH (21:29)
[2018-11-22] MEDS: SPIRONOLACTONE 25 MG TAB PO SCH (21:29)
[2018-11-22] MEDS: LORATADINE 10 MG TAB PO SCH (21:29)
[2018-11-22] MEDS: ATORVASTATIN 40 MG TAB PO SCH (21:29)
[2018-11-22] MEDS: INSULIN DETEMIR (LEVEMIR) 100 UNIT/ML SYR SQ SCH (21:29)
[2018-11-22] MEDS: ALPRAZolam 0.5 MG TAB PO SCH (21:29)
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
[2018-11-23] MEDS: DOXYCYCLINE 100 MG CAP PO SCH ×3 (00:06→21:20)
[2018-11-23 06:32] LABS: Glucose,Whole Blood 302 mg/dL (75-99)
[2018-11-23] MEDS: INSULIN ASPART (NovoLOG) 100 UNIT/ML VIAL SQ SCH ×7 (07:04→21:19)
[2018-11-23] MEDS: methylPREDNISolone SOD SUCCI 125 MG/2 ML VIAL IV SCH ×3 (07:04→17:27)
[2018-11-23 07:12] LABS: Basophils % (A) 0 %; Eosinophils % (A) 0 %; HGB 12.3 gm/dL (13.0-17.5); Lymphocytes # (A) 0.2 k/uL (1.0-4.8); Lymphocytes % (A) 3 %; MCH 29.5 pg (25.0-35.0); MCHC 32.3 g/dL (31.0-37.0); MCV 91.2 fL (80.0-100.0); Mean Platelet Volume 7.6; Monocytes # (A) 0.2 k/uL (0-1.0); Monocytes % (A) 3 %; Neutrophils # (A) 7.5 k/uL (1.3-7.7); Neutrophils % (A) 93 %; RBC 4.17 m/uL (4.30-5.90); WBC 8.1 k/uL (3.8-10.6)
[2018-11-23 07:20] LABS: Platelet Count 74 k/uL (150-450)
[2018-11-23 07:23] LABS: Calcium 8.9 mg/dL (8.4-10.2); Potassium 4.5 mmol/L (3.5-5.1)
[2018-11-23] MEDS: IPRATROPIUM-ALBUTEROL 3 ML NEB INHALATION SCH ×4 (08:26→20:19)
[2018-11-23] MEDS: FORMOTEROL FUMARATE 20 MCG/2 ML NEBU INHALATION SCH ×2 (08:26→20:18)
[2018-11-23] MEDS: BUDESONIDE 0.5 MG/2 ML NEBU INHALATION SCH ×2 (08:26→20:18)
--- NOTE | 2018-11-23 08:38 | ECHOF ---
Referral Reason:Chest pain and cardiomyopathy MEASUREMENTS -------- HEIGHT: 182.9 cm WEIGHT: 117.9 kg BP: IVSd: 1.1 cm (0.6 - 1.1) LVIDd: 3.8 cm (3.9 - 5.3) LVPWd: 1.3 cm (0.6 - 1.1) IVSs: 1.7 cm LVIDs: 2.7 cm LVPWs: 1.9 cm Ao Diam: 3.4 cm (2.0 - 3.7) AV Cusp: 1.7 cm (1.5 - 2.6) LA Diam: 3.7 cm (2.7 - 3.8) MV EXCURSION: 15.271 mm (> 18.000) MV EF SLOPE: 81 mm/s (70 - 150) EPSS: 0.7 cm MV E Mario: 1.17 m/s MV DecT: 282 ms MV A Mario: 1.13 m/s MV E/A Ratio: 1.04 AV maxP.19 mmHg AV meanP.56 mmHg RAP: 5.00 mmHg RVSP: 29.49 mmHg FINDINGS -------- Atrial fibrillation. This was a technically difficult study with suboptimal views. The left ventricular size is normal. Left ventricular wall thickness is normal. Overall left vent ricular systolic function is normal with, an EF between 55 - 60 %. The right ventricle is normal in size. Moderator band is visualized in the right ventricular apex. The left atrial size is normal. The right atrial size is normal. 5.0mg of Lumason was utilized for enhancement of images There is mild aortic valve sclerosis. Peak/mean gradient across the Aortic Valve is 26.19mmHg / 11. 56mmHg. The mitral valve leaflets are mildly thickened. Mild mitral regurgitation is present. Mild tricuspid regurgitation present. There is no evidence of pulmonary hypertension. The right v entricular systolic pressure, as measured by Doppler, is 29.49mmHg. The pulmonic valve was not well visualized. There is no pulmonic regurgitation present. The aortic root size is normal. IVC Not well visulized. There is no pericardial effusion. CONCLUSIONS -------- 1. Atrial fibrillation. 2. This was a technically difficult study with suboptimal views. 3. The left ventricular size is normal. 4. Left ventricular wall thickness is normal. 5. Overall left ventricular systolic function is normal with, an EF between 55 - 60 %. 6. The right ventricle is normal in size. 7. The left atrial size is normal. 8. 5.0mg of Lumason was utilized for enhancement of images 9. There is mild aortic valve sclerosis. 10. Peak/mean gradient across the Aortic Valve is 26.19mmHg / 11.56mmHg. 11. Mild mitral regurgitation is present. 12. Mild tricuspid regurgitation present. 13. There is no evidence of pulmonary hypertension. 14. There is no pulmonic regurgitation present. 15. The aortic root size is normal. 16. IVC Not well visulized. 17. There is no pericardial effusion. CURRICULUM DEVELOPMENT MANAGER: Naomi Landry RDCS
[2018-11-23] MEDS ORDERED: BENRALIZUMAB 30 MG SQ SCH (09:00)
--- NOTE | 2018-11-23 09:27 | P.PN ---
Subjective Progress Note Date: 11/23/18 Principal diagnosis: Acute on chronic hypoxic respiratory failure on home oxygen 6 L, acute COPD exacerbation, pulmonary fibrosis, extensive COPD, obstructive sleep apnea likely, morbid obesity, stage III renal failure, elevated troponin, non-ST segment elevated [place], coronary artery disease and history of prior stent placement in LAD 11/23/2018, patient seen eval reexamined during the rounds clinically has improved slightly decreased cough and congestion arterial blood gases reviewed computed tomography scan of the chest reviewed extensive emphysema is present with early fibrosis, can decrease oxygen to 8 L for now, patient patient has been refusing however to go below 8 Objective - Vital Signs Vital signs: Vital Signs Temp 98.1 F 11/23/18 04:20 Pulse 79 11/23/18 08:52 Resp 18 11/23/18 04:20 BP 136/71 11/23/18 04:20 Pulse Ox 89 L 11/23/18 08:29 Intake & Output 11/22/18 11/23/18 11/23/18 18:59 06:59 18:59 Intake Total 240 100 240 Output Total 825 068 6793 Balance -60 -600 -760 Weight 116.5 kg Intake: Intake, IV Titration 100 Amount Sodium Chloride 0.9% 1, 100 000 ml @ 100 mls/hr IV . Q10H [facility] Rx#:[id number] Oral 240 240 Output: Urine 430 814 1788 - Exam - Constitutional General appearance: disheveled, morbidly obese - EENT Eyes: anicteric sclerae, EOMI, PERRLA, poor dentition, normal appearance ENT: normal oropharynx Ears: bilateral: normal - Neck Neck: normal ROM Carotids: bilateral: upstroke normal Thyroid: bilateral: normal size - Respiratory Respiratory: bilateral: rhonchi, wheezing, prolonged expiration, negative: CTA, diminished, dullness, rales - Cardiovascular Rhythm: regular Heart sounds: normal: S1, S2 - Gastrointestinal General gastrointestinal: normal bowel sounds - Integumentary Integumentary: decreased turgor, normal turgor - Neurologic Neurologic: CNII-XII intact - Musculoskeletal Musculoskeletal: gait normal, generalized weakness, strength equal bilaterally - Psychiatric Psychiatric: A&O x's 3, appropriate affect, intact judgment & insight - Labs CBC & Chem 7: 11/23/18 06:38 11/23/18 06:38 Labs: Abnormal Lab Results - Last 24 Hours (Table) 11/22/18 11/22/18 11/22/18 Range/Units 12:16 16:45 20:38 RBC (4.30-5.90) m/uL Hgb (13.0-17.5) gm/dL Hct (39.0-53.0) % Plt Count (150-450) k/uL Lymphocytes # (1.0-4.8) k/uL ABG pCO2 48 H (35-45) mmHg ABG pO2 78 L (83-108) mmHg ABG HCO3 27 H (21-25) mmol/L ABG Total CO2 29 H (19-24) mmol/L Carbon Dioxide (22-30) mmol/L BUN (9-20) mg/dL Glucose (74-99) mg/dL POC Glucose (mg/dL) 288 H 301 H (75-99) mg/dL 11/22/18 11/23/18 11/23/18 Range/Units 21:20 06:31 06:38 RBC 4.17 L (4.30-5.90) m/uL Hgb 12.3 L (13.0-17.5) gm/dL Hct 38.0 L (39.0-53.0) % Plt Count 74 L (150-450) k/uL Lymphocytes # 0.2 L (1.0-4.8) k/uL ABG pCO2 (35-45) mmHg ABG pO2 (83-108) mmHg ABG HCO3 (21-25) mmol/L ABG Total CO2 (19-24) mmol/L Carbon Dioxide (22-30) mmol/L BUN (9-20) mg/dL Glucose (74-99) mg/dL POC Glucose (mg/dL) 338 H 302 H (75-99) mg/dL 11/23/18 Range/Units 06:38 RBC (4.30-5.90) m/uL Hgb (13.0-17.5) gm/dL Hct (39.0-53.0) % Plt Count (150-450) k/uL Lymphocytes # (1.0-4.8) k/uL ABG pCO2 (35-45) mmHg ABG pO2 (83-108) mmHg ABG HCO3 (21-25) mmol/L ABG Total CO2 (19-24) mmol/L Carbon Dioxide 32 H (22-30) mmol/L BUN 41 H (9-20) mg/dL Glucose 300 H (74-99) mg/dL POC Glucose (mg/dL) (75-99) mg/dL Microbiology - Last 24 Hours (Table) 11/22/18 12:10 Gram Stain - Preliminary Sputum Sputum Culture - Preliminary Assessment and Plan Assessment: Acute on chronic hypoxic respiratory failure on home oxygen 6 L currently on 10 L oxygen Severe COPD 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
[2018-11-23] MEDS: LISINOPRIL 20 MG TAB PO SCH (09:30)
[2018-11-23] MEDS: guaiFENesin 600 MG TABLET.ER PO SCH (09:30)
[2018-11-23] MEDS: ALPRAZolam 0.5 MG TAB PO SCH ×2 (09:30→21:20)
[2018-11-23] MEDS: ENOXAPARIN 40 MG/0.4 ML SYRINGE SQ SCH (09:30)
[2018-11-23] MEDS: ALLOPURINOL 100 MG TAB PO SCH (09:31)
[2018-11-23] MEDS: TAPENTADOL HCL 100 MG PO SCH ×4 (09:35→21:22)
[2018-11-23 12:03] LABS: Glucose,Whole Blood 238 mg/dL (75-99)
--- NOTE | 2018-11-23 15:09 | P.PN ---
Subjective Progress Note Date: 11/23/18 This is a 73-year-old gentleman with history of severe COPD who apparently was considered for possible lung transplant by [facility]. However, he was stopped out of the program her lack of family support. Patient had repeated admissions for exacerbation of COPD. This time, patient is admitted with increasing shortness of breath and also increasing sleepiness and fatigue. Since admission patient had troponin values which were in the abnormal range suggestive of possible non-ST elevation [place]. EKG did not reveal any acute changes. Patient denied any chest pain. Patient is being treated for exacerbation of COPD. Chest x-ray did not reveal any acute pathology and in fact appears to be better than previous x-ray. Patient is sitting up in the chair at the time of my examination. Still has expiratory wheezing and rhonchi. No significant edema. Patient had a history of ischemic heart disease and had stent placement of LAD [place] [address] Ellison. He did have a cardiac catheterization in 2016 and was not found to have a significant progression of the disease. We'll plan to get an echocardiogram. I will also discuss with Dr. Hammer for possible cardiac catheterization because of abnormal troponins. Further recommendations depend upon clinical course. I will also recommend pu lmonary consultation. His creatinine is about 1.84 which is also of new finding. The troponins could've been abnormal because of high creatinine. We will follow his creatinine and if necessary, Nephrology consult may be obtained. Further recommendations depend upon clinical course. Patient was seen and examined this morning, Dr. rodrigo Reese had a lengthy discussion with the patient explaining that his abnormality in troponin was likely secondary to his abnormal renal function. We will continue with current medications at this time. His echo showed normal left ventricular systolic fu nction. Objective - Vital Signs Vital signs: Vital Signs Temp 98.1 F 11/23/18 11:45 Pulse 76 11/23/18 11:45 Resp 18 11/23/18 11:45 BP 158/81 11/23/18 11:45 Pulse Ox 98 11/23/18 11:45 Intake & Output 11/22/18 11/23/18 11/23/18 18:59 06:59 18:59 Intake Total 240 100 240 Output Total 938 784 7214 Balance -60 600 -1360 Weight 116.5 kg Intake: Intake, IV Titration 100 Amount Sodium Chloride 0.9% 1, 100 000 ml @ 100 mls/hr IV . Q10H [facility] Rx#:[id number] Oral 240 240 Output: Urine 994 761 9518 - Exam GENERAL EXAM: Patient is alert and oriented and appears to be in minimal to moderate distress HEENT: Normocephalic. Normal reaction of pupils, equal size, normal range of extraocular motion. No erythema or exudates in the throat. NECK: No masses, no nuchal rigidity. CHEST: No chest wall deformity. LUNGS: Expiratory wheezes and rhonchi HEART: S1 and S2 normal with no audible mumurs or gallops. Regular rhythm, femorals equal on both sides.. ABDOMEN: No hepatosplenomegaly, normal bowel sounds, no guarding or rigidity. SKIN: No rashes CENTRAL NERVOUS SYSTEM: No focal deficits. EXTREMITIES: Mild edema - Labs CBC & Chem 7: 11/23/18 06:38 11/23/18 06:38 Labs: Abnormal Lab Results - Last 24 Hours (Table) 11/22/18 11/22/18 11/22/18 Range/Units 16:45 20:38 21:20 RBC (4.30-5.90) m/uL Hgb (13.0-17.5) gm/dL Hct (39.0-53.0) % Plt Count (150-450) k/uL Lymphocytes # (1.0-4.8) k/uL ABG pCO2 48 H (35-45) mmHg ABG pO2 78 L (83-108) mmHg ABG HCO3 27 H (21-25) mmol/L ABG Total CO2 29 H (19-24) mmol/L Carbon Dioxide (22-30) mmol/L BUN (9-20) mg/dL Glucose (74-99) mg/dL POC Glucose (mg/dL) 301 H 338 H (75-99) mg/dL 11/23/18 11/23/18 11/23/18 Range/Units 06:31 06:38 06:38 RBC 4.17 L (4.30-5.90) m/uL Hgb 12.3 L (13.0-17.5) gm/dL Hct 38.0 L (39.0-53.0) % Plt Count 74 L (150-450) k/uL Lymphocytes # 0.2 L (1.0-4.8) k/uL ABG pCO2 (35-45) mmHg ABG pO2 (83-108) mmHg ABG HCO3 (21-25) mmol/L ABG Total CO2 (19-24) mmol/L Carbon Dioxide 32 H (22-30) mmol/L BUN 41 H (9-20) mg/dL Glucose 300 H (74-99) mg/dL POC Glucose (mg/dL) 302 H (75-99) mg/dL 11/23/18 Range/Units 11:59 RBC (4.30-5.90) m/uL Hgb (13.0-17.5) gm/dL Hct (39.0-53.0) % Plt Count (150-450) k/uL Lymphocytes # (1.0-4.8) k/uL ABG pCO2 (35-45) mmHg ABG pO2 (83-108) mmHg ABG HCO3 (21-25) mmol/L ABG Total CO2 (19-24) mmol/L Carbon Dioxide (22-30) mmol/L BUN (9-20) mg/dL Glucose (74-99) mg/dL POC Glucose (mg/dL) 238 H (75-99) mg/dL Microbiology - Last 24 Hours (Table) 11/22/18 12:10 Gram Stain - Preliminary Sputum Sputum Culture - Preliminary Assessment and Plan Plan: Assessment and plan #1 Acute on chronic hypoxic respiratory failure due to COPD exacerbation #2 Acute severe COPD exacerbation. Patient is on 6 L home oxygen #3 Elevated troponin level. Likely secondary to abnormal renal function #4 Acute kidney injury with possible underlying CK D stage III #5 Coronary artery disease with history of stent placement #6 Pulmonary fibrosis due to prior valley fever and pneumonia #7 Diabetes type 2 insulin-dependent. #8 Hyperglycemia with uncontrolled diabetes type 2 due to steroids #9 Hypertension #10 Osteoarthritis #11 Chronic back pain #12 Bilateral lower extremity peripheral neuropathy and neurostimulator in place #13 Previous history of smoking #14 Morbid obesity with BMI 35.4 Plan Echo cardiac gram with Doppler study revealed a normal left ventricular systolic along with you now on an as-needed basis only, please don't hesitate to call if you have any questions. DNP note has been reviewed, I agree with a documented findings and plan of care. Patient was seen and examined.
[2018-11-23 16:34] LABS: Glucose,Whole Blood 227 mg/dL (75-99)
[2018-11-23] MEDS: TAMSULOSIN 0.4 MG CAP.ER.24H PO SCH (17:41)
[2018-11-23 20:58] LABS: Glucose,Whole Blood 391 mg/dL (75-99)
[2018-11-23] MEDS: SPIRONOLACTONE 25 MG TAB PO SCH (21:20)
[2018-11-23] MEDS: ATORVASTATIN 40 MG TAB PO SCH (21:20)
[2018-11-23] MEDS: LORATADINE 10 MG TAB PO SCH (21:20)
[2018-11-23] MEDS: ASPIRIN 81 MG PO SCH (21:20)
[2018-11-23] MEDS: INSULIN DETEMIR (LEVEMIR) 100 UNIT/ML SYR SQ SCH (21:20)
--- NOTE | 2018-11-24 00:27 | P.PN ---
Subjective Progress Note Date: 11/23/18 Principal diagnosis: Acute severe COPD exacerbation Patient is a 73-year-old male with a known history of COPD on home oxygen at 6 L via nasal cannula and is being considered for possible lung transplant at [facility], coronary artery disease with history of stent placement, insulin- dependent diabetes type 2, hypertension, osteoarthritis, bilateral lower extremity neuropathy with neurostimulator in place and other multiple medical problems came to ER with complaints of worsening shortness of breath and increased oxygen requirement at home. Patient has been having generalized weakness and fatigue. Patient was wheezing diffusely on admission. Denied any complaints of fever or chills. Patient does have cough with alvarenga sputum production. No nausea vomiting or diarrhea or abdominal pain. No leg swelling. Chest x-ray showed emphysema. Reticular and linear pulmonary bilateral infiltrates consistent with scarring and atelectasis. There is clearing of 3 cm area of consolidation in the posterior lateral right lower lobe compared to old exam. EKG showed normal sinus rhythm. Troponin 0.804, 1.92 and 1.75 Creatinine level 1.84 BNP 5700. Pulse ox was 64% on admission. 11/23/2018 Patient is able to sit in the chair today and is able to tolerate oral diet without shortness of breath. Worsening shortness of breath. No chest pain. No fever no chills. Chest CT showed emphysema. Reticular and linear bilateral infiltrates consistent with scarring and atelectasis. There is clearing of 3 cm area of consolidation the posterior right lower lobe compared to previous study. Echocardiogram showed atrial fibrillation and ejection fraction 55-60%. Troponin elevation is not consistent with acute ME. Renal function is normalized with creatinine level I.2 today. Patient is having hyperglycemia due to steroids. Pulmonary and cardiology is following. Patient is in follow-up with [facility] for lung reduction surgery. Current medications reviewed. Objective - Vital Signs Vital signs: Vital Signs Temp 98.1 F 11/23/18 21:09 Pulse 86 11/23/18 21:09 Resp 17 11/23/18 21:09 BP 148/85 11/23/18 21:09 Pulse Ox 95 11/23/18 21:09 Intake & Output 11/23/18 11/23/18 11/24/18 06:59 18:59 06:59 Intake Total 100 480 Output Total 700 2200 Balance -600 -1720 Weight 116.5 kg Intake: Intake, IV Titration 100 Amount Sodium Chloride 0.9% 1, 100 000 ml @ 100 mls/hr IV . Q10H [facility] Rx#:[id number] Oral 480 Output: Urine 700 2200 - Exam PHYSICAL EXAMINATION: Patient is lying in the bed comfortably, no acute distress, awake alert and oriented.. HEENT: Normocephalic. Neck is supple. Pupils reactive. Nostrils clear. Oral cavity is moist. Ears reveal no drainage. Neck reveals no JVD, carotid bruits, or thyromegaly. CHEST EXAMINATION: Trachea is central. Symmetrical expansion. bilateral diminished air entry and scattered rhonchi. CARDIAC: Normal S1, S2 with no gallops. No murmurs ABDOMEN: Soft. Bowel sounds normal. No organomegaly. No abdominal bruits. Extremities: reveal no edema. No clubbing or cyanosis Neurologically awake, alert, oriented x3 with well-coordinated movements. No focal deficits noted Skin: No rash or skin lesions. Psychiatric: Coperative. Nonsuicidal Musculoskeletal: No joint swelling or deformity. Normal range of motion. - Labs CBC & Chem 7: 11/23/18 06:38 11/23/18 06:38 Labs: Abnormal Lab Results - Last 24 Hours (Table) 11/23/18 11/23/18 11/23/18 Range/Units 06:31 06:38 06:38 RBC 4.17 L (4.30-5.90) m/uL Hgb 12.3 L (13.0-17.5) gm/dL Hct 38.0 L (39.0-53.0) % Plt Count 74 L (150-450) k/uL Lymphocytes # 0.2 L (1.0-4.8) k/uL Carbon Dioxide 32 H (22-30) mmol/L BUN 41 H (9-20) mg/dL Glucose 300 H (74-99) mg/dL POC Glucose (mg/dL) 302 H (75-99) mg/dL 11/23/18 11/23/18 11/23/18 Range/Units 11:59 16:32 20:54 RBC (4.30-5.90) m/uL Hgb (13.0-17.5) gm/dL Hct (39.0-53.0) % Plt Count (150-450) k/uL Lymphocytes # (1.0-4.8) k/uL Carbon Dioxide (22-30) mmol/L BUN (9-20) mg/dL Glucose (74-99) mg/dL POC Glucose (mg/dL) 238 H 227 H 391 H (75-99) mg/dL Microbiology - Last 24 Hours (Table) 11/22/18 12:10 Gram Stain - Preliminary Sputum Sputum Culture - Preliminary Assessment and Plan Assessment: Acute on chronic hypoxic respiratory failure due to COPD exacerbation Acute severe COPD exacerbation. Patient is on 6 L home oxygen Elevated troponin level. Possible non-ST elevated ME versus demand mismatch and natalie. Acute kidney injury with possible underlying CK D stage III. Improved Coronary artery disease with history of stent placement Pulmonary fibrosis due to prior valley fever and pneumonia Diabetes type 2 insulin-dependent. Hyperglycemia with uncontrolled diabetes type 2 due to steroids Hypertension Osteoarthritis Chronic back pain Bilateral lower extremity peripheral neuropathy and neurostimulator in place Previous history of smoking Morbid obesity with BMI 35.4 DVT prophylaxis Plan: Patient will be converted on IV steroids, DuoNeb's, Pulmicort and Perforomist. CT chest was ordered. 2-D echocardiogram and telemetry monitoring. Monitor renal function. Started on home insulin dose and insulin sliding scale. Cardiology and pulmonary is following. Further recommendations based on the clinical course. Prognosis is guarded with this time. Time with Patient: Greater than 30
[2018-11-24] MEDS: methylPREDNISolone SOD SUCCI 125 MG/2 ML VIAL IV SCH ×5 (00:57→23:08)
[2018-11-24 06:53] LABS: Glucose,Whole Blood 315 mg/dL (75-99)
[2018-11-24] MEDS: INSULIN ASPART (NovoLOG) 100 UNIT/ML VIAL SQ SCH ×7 (07:06→21:18)
[2018-11-24] MEDS: ALLOPURINOL 100 MG TAB PO SCH (08:28)
[2018-11-24] MEDS: guaiFENesin 600 MG TABLET.ER PO SCH (08:28)
[2018-11-24] MEDS: DOXYCYCLINE 100 MG CAP PO SCH ×2 (08:28→21:18)
[2018-11-24] MEDS: ALPRAZolam 0.5 MG TAB PO SCH ×2 (08:28→21:18)
[2018-11-24] MEDS: ENOXAPARIN 40 MG/0.4 ML SYRINGE SQ SCH (08:29)
[2018-11-24] MEDS: LISINOPRIL 20 MG TAB PO SCH (08:29)
[2018-11-24] MEDS: TAPENTADOL HCL 100 MG PO SCH ×4 (08:30→21:22)
[2018-11-24] MEDS: FORMOTEROL FUMARATE 20 MCG/2 ML NEBU INHALATION SCH ×2 (09:04→20:51)
[2018-11-24] MEDS: BUDESONIDE 0.5 MG/2 ML NEBU INHALATION SCH ×2 (09:05→20:51)
[2018-11-24] MEDS: IPRATROPIUM-ALBUTEROL 3 ML NEB INHALATION SCH ×4 (09:05→20:51)
[2018-11-24 11:57] LABS: Glucose,Whole Blood 307 mg/dL (75-99)
[2018-11-24 11:57] LABS: Glucose,Whole Blood 317 mg/dL (75-99)
[2018-11-24] MEDS ORDERED: INSULIN DETEMIR (LEVEMIR) 100 UNIT/ML SYR SQ ONE (12:30)
[2018-11-24] MEDS: amLODIPine 5 MG TAB PO SCH (12:52)
--- NOTE | 2018-11-24 16:01 | P.PN ---
Subjective Progress Note Date: 11/24/18 Principal diagnosis: Acute on chronic hypoxic respiratory failure on home oxygen 6 L, acute COPD exacerbation, pulmonary fibrosis, extensive COPD, obstructive sleep apnea likely, morbid obesity, stage III renal failure, elevated troponin, non-ST segment elevated [place], coronary artery disease and history of prior stent placement in LAD 11/24/2018, patient seen eval reexamined during the rounds doing better denies any chest pain cough congestion has improved significantly patient likely will be discharged tomorrow labs reviewed medications reviewed care plan discussed with the patient at length, sputum studies are negative, 11/23/2018, patient seen eval reexamined during the rounds clinically has improved slightly decreased cough and congestion arterial blood gases reviewed computed tomography scan of the chest reviewed extensive emphysema is present with early fibrosis, can decrease oxygen to 8 L for now, patient patient has been refusing however to go below 8 Objective - Vital Signs Vital signs: Vital Signs Temp 98.4 F 11/24/18 15:25 Pulse 83 11/24/18 15:25 Resp 20 11/24/18 15:32 BP 135/83 11/24/18 15:25 Pulse Ox 92 L 11/24/18 15:25 Intake & Output 11/23/18 11/24/18 11/24/18 18:59 06:59 18:59 Intake Total 480 476 Output Total 2200 300 Balance -1720 176 Weight 117 kg Intake: Oral 480 476 Output: Urine 2200 300 Other: Voiding Method Urinal # Voids 1 # Bowel Movements 1 - Exam - Constitutional General appearance: disheveled, morbidly obese - EENT Eyes: anicteric sclerae, EOMI, PERRLA, poor dentition, normal appearance ENT: normal oropharynx Ears: bilateral: normal - Neck Neck: normal ROM Carotids: bilateral: upstroke normal Thyroid: bilateral: normal size - Respiratory Respiratory: bilateral: rhonchi, wheezing, prolonged expiration, negative: CTA, diminished, dullness, rales - Cardiovascular Rhythm: regular Heart sounds: normal: S1, S2 - Gastrointestinal General gastrointestinal: normal bowel sounds - Integumentary Integumentary: decreased turgor, normal turgor - Neurologic Neurologic: CNII-XII intact - Musculoskeletal Musculoskeletal: gait normal, generalized weakness, strength equal bilaterally - Psychiatric Psychiatric: A&O x's 3, appropriate affect, intact judgment & insight - Labs CBC & Chem 7: 11/23/18 06:38 11/23/18 06:38 Labs: Abnormal Lab Results - Last 24 Hours (Table) 11/23/18 11/23/18 11/24/18 Range/Units 16:32 20:54 06:41 POC Glucose (mg/dL) 227 H 391 H 315 H (75-99) mg/dL 11/24/18 11/24/18 Range/Units 11:53 11:54 POC Glucose (mg/dL) 317 H 307 H (75-99) mg/dL Microbiology - Last 24 Hours (Table) 11/22/18 12:10 Gram Stain - Final Sputum Sputum Culture - Final Assessment and Plan Assessment: Acute on chronic hypoxic respiratory failure on home oxygen 6 L currently on 10 L oxygen Severe COPD Pulmonary fibrosis due to prior pneumonia/valley fever Likely obstructive sleep apnea Morbid obesity Stage III acute renal failure Elevated troponin suspect non-ST segment elevated [place] Coronary artery disease history of disease in LAD Plan: IV steroids Breathing treatments CT of the chest without contrast results reviewed Sleep study as outpatient Echocardiogram Arterial blood gases results reviewed We'll follow clinical course closely further recommendations pending Taper oxygen slowly will go down to 8
--- NOTE | 2018-11-24 16:29 | P.PN ---
Subjective Progress Note Date: 11/24/18 This 73-year-old gentleman is admitted with increasing weakness, sleepiness and shortness of breath. His troponins were elevated. However, his creatinine was up to 1.8. Patient did not have any chest pain. Has been feeling better and less short of breath. Chest x-ray showed evidence of emphysema and fibrosis. Patient is being treated with steroids and inhalers and nebulizers. Patient is on a 2 tablets of oxygen. Overall he seemed to be better. His echo showed normal LV function. At this point I advised him to conservative management, from Cardec standpoint. If patient were to develop any symptoms of chest pain, further investigation with cardiac catheterization may be considered. Follow-up with Dr. Hammer upon discharge Objective - Vital Signs Vital signs: Vital Signs Temp 98.4 F 11/24/18 15:25 Pulse 83 11/24/18 15:25 Resp 20 11/24/18 15:32 BP 135/83 11/24/18 15:25 Pulse Ox 92 L 11/24/18 15:25 Intake & Output 11/23/18 11/24/18 11/24/18 18:59 06:59 18:59 Intake Total 480 476 Output Total 2200 300 Balance -1720 176 Weight 117 kg Intake: Oral 480 476 Output: Urine 2200 300 Other: Voiding Method Urinal # Voids 1 # Bowel Movements 1 - Exam GENERAL EXAM: Patient is alert and oriented and doesn't appear to be in any acute distress HEENT: Normocephalic. Normal reaction of pupils, equal size, normal range of extraocular motion. No erythema or exudates in the throat. NECK: No masses, no nuchal rigidity. CHEST: No chest wall deformity. LUNGS: Expected rhonchi and wheezing HEART: S1 and S2 normal with no audible mumurs or gallops. Regular rhythm, femorals equal on both sides.. ABDOMEN: No hepatosplenomegaly, normal bowel sounds, no guarding or rigidity. SKIN: No rashes CENTRAL NERVOUS SYSTEM: No focal deficits. EXTREMITIES: No cyanosis, clubbing or edema. - Labs CBC & Chem 7: 11/23/18 06:38 11/23/18 06:38 Labs: Abnormal Lab Results - Last 24 Hours (Table) 11/23/18 11/23/18 11/24/18 Range/Units 16:32 20:54 06:41 POC Glucose (mg/dL) 227 H 391 H 315 H (75-99) mg/dL 11/24/18 11/24/18 Range/Units 11:53 11:54 POC Glucose (mg/dL) 317 H 307 H (75-99) mg/dL Microbiology - Last 24 Hours (Table) 11/22/18 12:10 Gram Stain - Final Sputum Sputum Culture - Final Assessment and Plan (1) Acute exacerbation of chronic obstructive airways disease Current Visit: Yes Status: Acute Code(s): J44.1 - CHRONIC OBSTRUCTIVE PULMONARY DISEASE W (ACUTE) EXACERBATION SNOMED Code(s): 336116194 (2) HTN (hypertension) Current Visit: No Status: Acute Code(s): I10 - ESSENTIAL (PRIMARY) HYPERTENSION SNOMED Code(s): 17566528 (3) Hyperlipemia Current Visit: No Status: Acute Code(s): E78.5 - HYPERLIPIDEMIA, UNSPECIFIED SNOMED Code(s): 27512473 (4) NSTEMI (non-ST elevated myocardial infarction) Current Visit: No Status: Acute Code(s): I21.4 - NON-ST ELEVATION (NSTEMI) MYOCARDIAL INFARCTION SNOMED Code(s): 87943567 (5) Acute renal failure Current Visit: Yes Status: Acute Code(s): N17.9 - ACUTE KIDNEY FAILURE, UNSPECIFIED SNOMED Code(s): 28525963 Plan: Patient is showing improvement in clinical and pulmonary status. Denies any chest pain. Lungs show diminished wheezing and rhonchi. Patient appears to be more alert. Echo showed normal LV function. As long as patient remains stable without any chest pain, conservative management is suggested. Follow-up with Dr. Hammer upon discharge
[2018-11-24 17:32] LABS: Glucose,Whole Blood 212 mg/dL (75-99)
[2018-11-24] MEDS: TAMSULOSIN 0.4 MG CAP.ER.24H PO SCH (17:37)
[2018-11-24 20:42] LABS: Glucose,Whole Blood 294 mg/dL (75-99)
[2018-11-24] MEDS ORDERED: INSULIN DETEMIR (LEVEMIR) 100 UNIT/ML SYR SQ SCH (21:00)
[2018-11-24] MEDS: SPIRONOLACTONE 25 MG TAB PO SCH (21:18)
[2018-11-24] MEDS: ASPIRIN 81 MG PO SCH (21:18)
[2018-11-24] MEDS: LORATADINE 10 MG TAB PO SCH (21:18)
[2018-11-24] MEDS: ATORVASTATIN 40 MG TAB PO SCH (21:18)
--- NOTE | 2018-11-24 22:01 | P.PN ---
Subjective Progress Note Date: 11/24/18 Principal diagnosis: Acute severe COPD exacerbation Patient is a 73-year-old male with a known history of COPD on home oxygen at 6 L via nasal cannula and is being considered for possible lung transplant at [facility], coronary artery disease with history of stent placement, insulin- dependent diabetes type 2, hypertension, osteoarthritis, bilateral lower extremity neuropathy with neurostimulator in place and other multiple medical problems came to ER with complaints of worsening shortness of breath and increased oxygen requirement at home. Patient has been having generalized weakness and fatigue. Patient was wheezing diffusely on admission. Denied any complaints of fever or chills. Patient does have cough with alvarenga sputum production. No nausea vomiting or diarrhea or abdominal pain. No leg swelling. Chest x-ray showed emphysema. Reticular and linear pulmonary bilateral infiltrates consistent with scarring and atelectasis. There is clearing of 3 cm area of consolidation in the posterior lateral right lower lobe compared to old exam. EKG showed normal sinus rhythm. Troponin 0.804, 1.92 and 1.75 Creatinine level 1.84 BNP 5700. Pulse ox was 64% on admission. 11/23/2018 Patient is able to sit in the chair today and is able to tolerate oral diet without shortness of breath. Worsening shortness of breath. No chest pain. No fever no chills. Chest CT showed emphysema. Reticular and linear bilateral infiltrates consistent with scarring and atelectasis. There is clearing of 3 cm area of consolidation the posterior right lower lobe compared to previous study. Echocardiogram showed atrial fibrillation and ejection fraction 55-60%. Troponin elevation is not consistent with acute NJ. Renal function is normalized with creatinine level I.2 today. Patient is having hyperglycemia due to steroids. Pulmonary and cardiology is following. Patient is in follow-up with [facility] for lung reduction surgery. 11/24/2018 Patient is currently sitting in a chair comfortably. Shortness of breath is not at baseline and patient is still wheezing. No complaints of chest pain. Tolerating oral diet otherwise. Patient is being continued on IV steroids and antibiotics and DuoNeb's. 2-D echocardiogram showed normal ejection fraction. Cardiology recommends maximal medical therapy at this time. Pulmonary is on board. No fever no chills. Cough without much sputum production. Patient is hyperglycemic likely due to steroids. Insulin dose increased to 21 units of Levemir at night and NovoLog 7 units 3 times a day before meals along with insulin sliding scale. Anticipate discharge next 1-2 days with more clinical improvement. Current medications reviewed. Objective - Vital Signs Vital signs: Vital Signs Temp 98.4 F 11/24/18 15:25 Pulse 83 11/24/18 15:25 Resp 20 11/24/18 15:32 BP 135/83 11/24/18 15:25 Pulse Ox 92 L 11/24/18 15:25 Intake & Output 11/23/18 11/24/18 11/24/18 18:59 06:59 18:59 Intake Total 480 236 Output Total 2200 300 Balance -1720 -64 Weight 117 kg Intake: Oral 480 236 Output: Urine 2200 300 Other: Voiding Method Urinal # Voids 1 # Bowel Movements 1 - Exam PHYSICAL EXAMINATION: Patient is lying in the bed comfortably, no acute distress, awake alert and oriented.. HEENT: Normocephalic. Neck is supple. Pupils reactive. Nostrils clear. Oral cavity is moist. Ears reveal no drainage. Neck reveals no JVD, carotid bruits, or thyromegaly. CHEST EXAMINATION: Trachea is central. Symmetrical expansion. bilateral diminished air entry and scattered rhonchi and diffuse wheezing. CARDIAC: Normal S1, S2 with no gallops. No murmurs ABDOMEN: Soft. Bowel sounds normal. No organomegaly. No abdominal bruits. Extremities: reveal no edema. No clubbing or cyanosis Neurologically awake, alert, oriented x3 with well-coordinated movements. No focal deficits noted Skin: No rash or skin lesions. Psychiatric: Coperative. Nonsuicidal Musculoskeletal: No joint swelling or deformity. Normal range of motion. - Labs CBC & Chem 7: 11/23/18 06:38 11/23/18 06:38 Labs: Abnormal Lab Results - Last 24 Hours (Table) 11/23/18 11/23/18 11/24/18 Range/Units 16:32 20:54 06:41 POC Glucose (mg/dL) 227 H 391 H 315 H (75-99) mg/dL 11/24/18 11/24/18 Range/Units 11:53 11:54 POC Glucose (mg/dL) 317 H 307 H (75-99) mg/dL Microbiology - Last 24 Hours (Table) 11/22/18 12:10 Gram Stain - Final Sputum Sputum Culture - Final Assessment and Plan Assessment: Acute on chronic hypoxic respiratory failure due to COPD exacerbation Acute severe COPD exacerbation. Patient is on 6 L home oxygen Elevated troponin level. Possible non-ST elevated NJ versus demand mismatch and natalie. 2d Echo showed normal EF. Acute kidney injury with possible underlying CK D stage III. Improved Coronary artery disease with history of stent placement Pulmonary fibrosis due to prior valley fever and pneumonia Diabetes type 2 insulin-dependent. Hyperglycemia with uncontrolled diabetes type 2 due to steroids Hypertension Osteoarthritis Chronic back pain Bilateral lower extremity peripheral neuropathy and neurostimulator in place Previous history of smoking Morbid obesity with BMI 35.4 DVT prophylaxis Plan: Patient will be converted on IV steroids, DuoNeb's, Pulmicort and Perforomist. CT chest was done. 2-D echocardiogram showed normal EF . c/w telemetry monitoring. Monitor renal function. Started on home insulin dose and insulin sliding scale. Cardiology and pulmonary is following. Further recommendations based on the clinical course. Prognosis is guarded at this time. Time with Patient: Greater than 30
[2018-11-25 06:45] LABS: Glucose,Whole Blood 195 mg/dL (75-99)
[2018-11-25] MEDS: methylPREDNISolone SOD SUCCI 125 MG/2 ML VIAL IV SCH ×2 (06:54→12:34)
[2018-11-25] MEDS: INSULIN ASPART (NovoLOG) 100 UNIT/ML VIAL SQ SCH ×4 (06:54→12:35)
[2018-11-25] MEDS: BUDESONIDE 0.5 MG/2 ML NEBU INHALATION SCH (08:14)
[2018-11-25] MEDS: IPRATROPIUM-ALBUTEROL 3 ML NEB INHALATION SCH ×3 (08:14→15:26)
[2018-11-25] MEDS: FORMOTEROL FUMARATE 20 MCG/2 ML NEBU INHALATION SCH (08:14)
[2018-11-25] MEDS: ENOXAPARIN 40 MG/0.4 ML SYRINGE SQ SCH (09:57)
[2018-11-25] MEDS: amLODIPine 5 MG TAB PO SCH (09:57)
[2018-11-25] MEDS: DOXYCYCLINE 100 MG CAP PO SCH (09:57)
[2018-11-25] MEDS: ALLOPURINOL 100 MG TAB PO SCH (09:57)
[2018-11-25] MEDS: LISINOPRIL 20 MG TAB PO SCH (09:57)
[2018-11-25] MEDS: ALPRAZolam 0.5 MG TAB PO SCH (09:57)
[2018-11-25] MEDS: guaiFENesin 600 MG TABLET.ER PO SCH (09:57)
[2018-11-25] MEDS: TAPENTADOL HCL 100 MG PO SCH ×2 (09:58→12:36)
[2018-11-25 10:01] VITALS: RESP 16; TEMP 97.6
[2018-11-25 11:26] LABS: Glucose,Whole Blood 176 mg/dL (75-99)
--- NOTE | 2018-11-25 12:36 | P.PN ---
Subjective Progress Note Date: 11/25/18 Principal diagnosis: Acute on chronic hypoxic respiratory failure on home oxygen 6 L, acute COPD exacerbation, pulmonary fibrosis, extensive COPD, obstructive sleep apnea likely, morbid obesity, stage III renal failure, elevated troponin, non-ST segment elevated SC, coronary artery disease and history of prior stent placement in LAD 11/25/2017, patient seen eval examined during the rounds denies any chest pain breathing comfortably almost back to baseline patient refuses to go down below 8 L nasal cannula stable from pulmonary standpoint for discharge 11/24/2018, patient seen eval reexamined during the rounds doing better denies any chest pain cough congestion has improved significantly patient likely will be discharged tomorrow labs reviewed medications reviewed care plan discussed with the patient at length, sputum studies are negative, 11/23/2018, patient seen eval reexamined during the rounds clinically has improved slightly decreased cough and congestion arterial blood gases reviewed computed tomography scan of the chest reviewed extensive emphysema is present with early fibrosis, can decrease oxygen to 8 L for now, patient patient has been refusing however to go below 8 Objective - Vital Signs Vital signs: Vital Signs Temp 97.6 F 11/25/18 08:40 Pulse 84 11/25/18 11:38 Resp 16 11/25/18 08:40 BP 176/95 11/25/18 08:40 Pulse Ox 95 11/25/18 08:40 Intake & Output 11/24/18 11/25/18 11/25/18 18:59 06:59 18:59 Intake Total 956 240 Output Total 300 Balance 656 240 Weight 117.1 kg Intake: Oral 956 240 Output: Urine 300 Other: Voiding Method Urinal Urinal Urinal # Voids 1 # Bowel Movements 1 - Exam - Constitutional General appearance: disheveled, morbidly obese - EENT Eyes: anicteric sclerae, EOMI, PERRLA, poor dentition, normal appearance ENT: normal oropharynx Ears: bilateral: normal - Neck Neck: normal ROM Carotids: bilateral: upstroke normal Thyroid: bilateral: normal size - Respiratory Respiratory: bilateral: rhonchi, wheezing, prolonged expiration, negative: CTA, diminished, dullness, rales - Cardiovascular Rhythm: regular Heart sounds: normal: S1, S2 - Gastrointestinal General gastrointestinal: normal bowel sounds - Integumentary Integumentary: decreased turgor, normal turgor - Neurologic Neurologic: CNII-XII intact - Musculoskeletal Musculoskeletal: gait normal, generalized weakness, strength equal bilaterally - Psychiatric Psychiatric: A&O x's 3, appropriate affect, intact judgment & insight - Labs CBC & Chem 7: 11/23/18 06:38 11/23/18 06:38 Labs: Abnormal Lab Results - Last 24 Hours (Table) 11/24/18 11/24/18 11/25/18 Range/Units 17:08 20:37 06:33 POC Glucose (mg/dL) 212 H 294 H 195 H (75-99) mg/dL 11/25/18 Range/Units 11:25 POC Glucose (mg/dL) 176 H (75-99) mg/dL Microbiology - Last 24 Hours (Table) 11/22/18 12:10 Gram Stain - Final Sputum Sputum Culture - Final Assessment and Plan Assessment: Acute on chronic hypoxic respiratory failure on home oxygen 6 L currently on 10 L oxygen Severe COPD Pulmonary fibrosis due to prior pneumonia/valley fever Likely obstructive sleep apnea Morbid obesity Stage III acute renal failure Elevated troponin suspect non-ST segment elevated SC Coronary artery disease history of disease in LAD Plan: IV steroids Breathing treatments CT of the chest without contrast results reviewed Sleep study as outpatient Echocardiogram Arterial blood gases results reviewed We'll follow clinical course closely further recommendations pending Taper oxygen slowly will go down to 8 Time with Patient: Greater than 30
[2018-11-25 14:12] VITALS: BP 129/81
[2018-11-25 15:40] VITALS: PULSE 88
--- NOTE | 2018-11-25 16:15 | P.DS ---
Providers Date of admission: 11/21/18 22:00 Expected date of discharge: 11/25/18 Attending physician: Faye Baum Consults: 11/21/18 21:58 Consult Physician Routine Consulting Provider: Josue Russell Consult Reason/Comments: known Do you want consulting provider notified?: Yes 11/21/18 22:11 Consult Physician Routine Consulting Provider: Jennifer Madison Consult Reason/Comments: tropElev Do you want consulting provider notified?: Yes Primary care physician: Armand Montenegro [facility] Course: Mr. Mckeon is a 73-year-old male with a past medical history of COPD on 6 L of home oxygen, coronary artery disease with history of stent placement, type 2 diabetes mellitus insulin-dependent, hypertension, bilateral lower extremity neuropathy with neurostimulator in place admitted to the hospital with chief complaints of worsening of breathing. Patient also had increased requirements of his oxygen. He was having generalized fatigue and weakness. At the time of admission patient was wheezing diffusely so he was started on IV steroids and breathing treatments. And the patient also had elevation in his troponins for which cardiology has been consulted. Cardiology has evaluated the urine patient and my recommended an echocardiogram which was showing ejection fraction of 55- 60% with atrial fibrillation. They recommended medical management. He was also evaluated by pulmonary services Dr. Russell, who said that the patient was back to his baseline today. Today the patient is sitting comfortably in a chair by the bedside. He is on 8 L of oxygen. He states his back to his baseline breathing. Patient's labs and medications have been reviewed. Vital Signs 11/25/18 11/25/18 11/25/18 08:14 08:24 08:25 Temperature Pulse Rate 80 80 80 Pulse Rate [ Pulse Oximetery ] Respiratory Rate Blood Pressure [Right Arm] O2 Sat by Pulse Oximetry 11/25/18 11/25/18 11/25/18 08:35 08:40 11:26 Temperature 97.6 F Pulse Rate 82 83 Pulse Rate [ 88 Pulse Oximetery ] Respiratory 16 Rate Blood Pressure 176/95 [Right Arm] O2 Sat by Pulse 95 Oximetry 11/25/18 11/25/18 11/25/18 11:38 12:00 15:26 Temperature Pulse Rate 84 86 Pulse Rate [ 65 Pulse Oximetery ] Respiratory 16 Rate Blood Pressure 129/81 [Right Arm] O2 Sat by Pulse 94 L Oximetry 11/25/18 15:40 Temperature Pulse Rate 88 Pulse Rate [ Pulse Oximetery ] Respiratory Rate Blood Pressure [Right Arm] O2 Sat by Pulse Oximetry PHYSICAL EXAMINATION: Patient is lying in the bed comfortably, no acute distress, awake alert and oriented.. HEENT: Normocephalic. Neck is supple. Pupils reactive. Nostrils clear. Oral cavity is moist. Ears reveal no drainage. Neck reveals no JVD, carotid bruits, or thyromegaly. CHEST EXAMINATION: Trachea is central. Symmetrical expansion. bilateral diminished air entry . No wheezing CARDIAC: Normal S1, S2 with no gallops. No murmurs ABDOMEN: Soft. Bowel sounds normal. No organomegaly. No abdominal bruits. Extremities: reveal no edema. No clubbing or cyanosis Neurologically awake, alert, oriented x3 No focal deficits noted. Psychiatric: Coperative. Nonsuicidal. DISCHARGE DIAGNOSIS Acute on chronic hypoxic respiratory failure due to COPD exacerbation Acute severe COPD exacerbation. Patient is on 8 L home oxygen Elevated troponin level. Acute kidney injury with possible underlying CK D stage III. Improved Coronary artery disease with history of stent placement Pulmonary fibrosis due to prior valley fever and pneumonia Diabetes type 2 insulin-dependent. Hyperglycemia with uncontrolled diabetes type 2 due to steroids Hypertension Osteoarthritis Chronic back pain Bilateral lower extremity peripheral neuropathy and neurostimulator in place Previous history of smoking Morbid obesity with BMI 35.4 DVT prophylaxis PLAN: Patient is being discharged home on a tapering dose of steroids. He is advised to continue using his home oxygen at 8 L. As the patient's on steroids his insulin has been increased from 12 units to 16 units, discussed in detail with him that he must be taking 16 units and that he completes his steroid dose. He is also advised to complete 4 days of doxycycline. Amlodipine has been added to his medication regimen as his blood pressures have been running high during the hospital stay. 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 More than 30 minutes spent towards the discharge of the patient. Patient Condition at Discharge: Fair Plan - Discharge Summary New Discharge Prescriptions: New amLODIPine [Norvasc] 5 mg PO DAILY #30 tab predniSONE See Taper PO DIRECTED #30 tab Doxycycline [Vibramycin] 100 mg PO BID #4 cap Continue Cetirizine HCl [Zyrtec] 10 mg PO HS Allopurinol [Zyloprim] 100 mg PO DAILY Albuterol Sulfate [Proventil Hfa] 2 puff INHALATION RT-QID PRN PRN Reason: Shortness Of Breath Potassium Chloride [Klor-Con 10] 20 meq PO DAILY Tiotropium Switchback [Spiriva] 1 puff INHALATION RT-DAILY metFORMIN HCL 1,000 mg PO BID Budesonide [Pulmicort] 0.5 mg INHALATION RT-BID Albuterol Nebulized [Ventolin Nebulized] 2.5 mg INHALATION RT-QID Insulin Regular [humuLIN R] See Protocol SQ DAILY PRN PRN Reason: Blood Sugar - High Tamsulosin [Flomax] 0.4 mg PO HS Furosemide [Lasix] 40 mg PO DAILY PRN PRN Reason: Edema ALPRAZolam [Xanax] 0.5 mg PO BID Atorvastatin [Lipitor] 40 mg PO HS Quinapril/Hydrochlorothiazide [Quinapril-Hctz 20-25 mg Tab] 1 tab PO HS Spironolactone [Aldactone] 25 mg PO HS Insulin Glargine [Lantus] 12 unit SQ HS PRN PRN Reason: Blood Sugar - High Aspirin 81 mg PO HS Tapentadol HCl [Nucynta] 100 mg PO QID Arformoterol Tartrate [Brovana] 15 mcg INHALATION RT-BID Benralizumab [Fasenra] 30 mg SQ Q30D Gabapentin 600 mg PO Q6H predniSONE 20 mg PO DAILY Guaifenesin/Pseudoephedrne HCl [Mucinex D ER Tablet] 1 tab PO QAM Discharge Medication List Albuterol Nebulized [Ventolin Nebulized] 2.5 mg INHALATION RT-QID 05/19/15 [History] Albuterol Sulfate [Proventil Hfa] 2 puff INHALATION RT-QID PRN 05/19/15 [History] Allopurinol [Zyloprim] 100 mg PO DAILY 05/19/15 [History] Budesonide [Pulmicort] 0.5 mg INHALATION RT-BID 05/19/15 [History] Cetirizine HCl [Zyrtec] 10 mg PO HS 05/19/15 [History] Insulin Regular [humuLIN R] See Protocol SQ DAILY PRN 05/19/15 [History] Potassium Chloride [Klor-Con 10] 20 meq PO DAILY 05/19/15 [History] Tamsulosin [Flomax] 0.4 mg PO HS 05/19/15 [History] Tiotropium Switchback [Spiriva] 1 puff INHALATION RT-DAILY 05/19/15 [History] metFORMIN HCL 1,000 mg PO BID 05/19/15 [History] ALPRAZolam [Xanax] 0.5 mg PO BID 01/19/17 [History] Furosemide [Lasix] 40 mg PO DAILY PRN 01/19/17 [History] Atorvastatin [Lipitor] 40 mg PO HS 05/08/17 [History] Quinapril/Hydrochlorothiazide [Quinapril-Hctz 20-25 mg Tab] 1 tab PO HS 05/08/17 [History] Arformoterol Tartrate [Brovana] 15 mcg INHALATION RT-BID 03/24/18 [History] Aspirin 81 mg PO HS 03/24/18 [History] Insulin Glargine [Lantus] 12 unit SQ HS PRN 03/24/18 [History] Spironolactone [Aldactone] 25 mg PO HS 03/24/18 [History] Tapentadol HCl [Nucynta] 100 mg PO QID 03/24/18 [History] Benralizumab [Fasenra] 30 mg SQ Q30D 09/21/18 [History] Gabapentin 600 mg PO Q6H 11/21/18 [History] Guaifenesin/Pseudoephedrne HCl [Mucinex D ER Tablet] 1 tab PO QAM 11/21/18 [History] predniSONE 20 mg PO DAILY 11/21/18 [History] Doxycycline [Vibramycin] 100 mg PO BID #4 cap 11/25/18 [Rx] amLODIPine [Norvasc] 5 mg PO DAILY #30 tab 11/25/18 [Rx] predniSONE See Taper PO DIRECTED #30 tab 11/25/18 [Rx] Follow up Appointment(s)/Referral(s): Armand Montenegro DO [Primary Care Provider] - 1-2 days Josue Russell MD [STAFF PHYSICIAN] - 1 Week Wilber Hammer MD [STAFF PHYSICIAN] - 1 Week Patient Instructions/Handouts: COPD (Chronic Obstructive Pulmonary Disease) (DC) Discharge Disposition: HOME SELF-CARE
[2018-11-25] MEDS ORDERED: predniSONE 50 MG TAB PO STA (16:17)
== END 2018-11-25 18:25 | disposition home or self-care (01) | DRG 190 ==
LOC: EC 19:53 → 3SCARD 22:00
PROVIDERS: ADMIT Hospitalist; ATTEND Hospitalist
DX: J43.9 Emphysema, unspecified (principal); J96.21 Acute and chronic respiratory failure with hypoxia; N17.9 Acute kidney failure, unspecified; I13.0 Hypertensive heart and chronic kidney disease with heart failure and stage 1 through stage 4 chronic kidney disease, or unspecified chronic kidney disease; I25.10 Atherosclerotic heart disease of native coronary artery without angina pectoris; M19.90 Unspecified osteoarthritis, unspecified site; E11.42 Type 2 diabetes mellitus with diabetic polyneuropathy; E11.65 Type 2 diabetes mellitus with hyperglycemia; E66.01 Morbid (severe) obesity due to excess calories; G47.33 Obstructive sleep apnea (adult) (pediatric); F41.9 Anxiety disorder, unspecified; E78.5 Hyperlipidemia, unspecified; G89.29 Other chronic pain; I50.9 Heart failure, unspecified; J84.10 Pulmonary fibrosis, unspecified; T38.0X5A Adverse effect of glucocorticoids and synthetic analogues, initial encounter; I27.20 Pulmonary hypertension, unspecified; E11.22 Type 2 diabetes mellitus with diabetic chronic kidney disease; N18.3 Chronic kidney disease, stage 3 (moderate); R79.89 Other specified abnormal findings of blood chemistry; I48.91 Unspecified atrial fibrillation; F40.240 Claustrophobia; Z96.653 Presence of artificial knee joint, bilateral; Z99.81 Dependence on supplemental oxygen; Z95.5 Presence of coronary angioplasty implant and graft; Z79.4 Long term (current) use of insulin; Z79.899 Other long term (current) drug therapy; Z79.82 Long term (current) use of aspirin; Z87.01 Personal history of pneumonia (recurrent); Z68.35 Body mass index [BMI] 35.0-35.9, adult; Z85.828 Personal history of other malignant neoplasm of skin; Z87.891 Personal history of nicotine dependence; Z82.49 Family history of ischemic heart disease and other diseases of the circulatory system
CPT/HCPCS: 36415; 71045; 71250; 80048; 80053; 82805; 83735; 83880; 84484; 85025; 85379; 85610; 85730; 87070; 87205; 93005; 93306; 94640; 94644; 94645; 94760; 96374; 96375; 99291

== ENCOUNTER 2018-12-11 12:34 | Emergency (ER) | payer MEDICARE, BC ==
[2018-12-11 13:32] VITALS: BP 133/81; PULSE 94; RESP 20; TEMP 98.4
--- NOTE | 2018-12-11 15:45 | US ---
EXAMINATION TYPE: US venous doppler duplex UE RT DATE OF EXAM: 12/11/2018 COMPARISON: NONE CLINICAL HISTORY: 73-year-old male Pain. SIDE PERFORMED: Right TECHNIQUE: Right upper extremity deep and superficial circulation was interrogated. Findings: ENGRAVER LETTER NOTES: Large body habitus. Right Arm: Negative for DVT IMPRESSION: No evidence for DVT within the right upper extremity.
== END 2018-12-11 15:30 | disposition left against medical advice (07) ==
LOC: EC 12:34
DX: S49.90XA Unspecified injury of shoulder and upper arm, unspecified arm, initial encounter (principal); Z53.21 Procedure and treatment not carried out due to patient leaving prior to being seen by health care provider
CPT/HCPCS: 99499

== ENCOUNTER 2019-03-10 23:19 | Inpatient (IN) | payer MEDICARE, BC ==
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
[2019-03-11 00:17] LABS: Basophils % (A) 0 %; Eosinophils % (A) 0 %; HCT 40.8 % (39.0-53.0); HGB 12.9 gm/dL (13.0-17.5); Hypochromasia Slight; Lymphocytes # (A) 0.7 k/uL (1.0-4.8); Lymphocytes % (A) 10 %; MCH 29.3 pg (25.0-35.0); MCHC 31.7 g/dL (31.0-37.0); MCV 92.4 fL (80.0-100.0); Mean Platelet Volume 6.8; Monocytes # (A) 0.5 k/uL (0-1.0); Monocytes % (A) 7 %; Neutrophils # (A) 5.7 k/uL (1.3-7.7); Neutrophils % (A) 80 %; Platelet Count 110 k/uL (150-450); Poikilocytosis Slight; RBC 4.41 m/uL (4.30-5.90); RDW 15.7 % (11.5-15.5); WBC 7.1 k/uL (3.8-10.6)
[2019-03-11 00:28] LABS: Albumin 3.3 g/dL (3.5-5.0); Magnesium 1.3 mg/dL (1.6-2.3); Potassium 4.5 mmol/L (3.5-5.1); Total Bilirubin 1.6 mg/dL (0.2-1.3); Total Protein 5.9 g/dL (6.3-8.2)
[2019-03-11 00:32] LABS: Partial Thromboplastin Time 24.7 sec (22.0-30.0); Prothrombin Time 10.6 sec (9.0-12.0)
[2019-03-11 00:47] LABS: Appearance,Urine Clear (Clear); Bilirubin,Urine Negative (Negative); Blood,Urine Moderate (Negative); Color,Urine Yellow; Glucose,Urine (UA) Negative (Negative); Hyaline Casts,Urine 3 /lpf (0-2); Ketones,Urine Negative (Negative); Leukocyte Esterase,Urine Negative (Negative); Mucus,Urine Rare /hpf; Nitrite,Urine Negative (Negative); PH, Urine 5.5 (5.0-8.0); Protein,Urine Trace (Negative); RBC,Urine <1 /hpf (0-5); Specific Gravity,Urine 1.015 (1.001-1.035); Squamous Epithelial Cell,Urine <1 /hpf (0-4); Urobilinogen,Urine <2.0 mg/dL (<2.0); WBC,Urine 1 /hpf (0-5)
--- NOTE | 2019-03-11 01:48 | XR ---
EXAMINATION TYPE: XR ribs RT w pa chest xray DATE OF EXAM: 03/11/2019 COMPARISON: Chest x-ray 11/21/2018 HISTORY: Rib pain. Fall. TECHNIQUE: 5 views FINDINGS: There is no heart failure nor confluent pneumonic infiltrate. There is no sign of pleural e ffusion or pneumothorax. There is small linear density in the right midlung. There is no evidence of rib fracture. IMPRESSION: Mild scarring or subsegmental atelectasis unchanged. No rib fracture seen. Mild cardiomeg medhat.
[2019-03-11] MEDS ORDERED: HEPARIN SODIUM,PORCINE 5,000 UNIT/ML 1 ML VIAL IV ONE (02:38)
[2019-03-11] MEDS ORDERED: HEPARIN SODIUM,PORCINE 5,000 UNIT/ML 1 ML VIAL IV PRN (02:38)
[2019-03-11] MEDS ORDERED: NALOXONE 0.4 MG/ML 1 ML VIAL IV PRN (02:39)
[2019-03-11] MEDS: HEPARIN SOD,PORK IN 0.45% NACL 25,000 UNIT in 0.45% NACL 1 250ML.BAG IV SCH (03:03)
[2019-03-11] MEDS: SODIUM CHLORIDE 0.9% 1,000 ML IV SCH ×3 (03:03→22:13)
[2019-03-11 03:45] VITALS: BMI 33.5
[2019-03-11 06:15] LABS: Glucose,Whole Blood 117 mg/dL (75-99)
[2019-03-11] MEDS: INSULIN ASPART (NovoLOG) 100 UNIT/ML VIAL SQ SCH ×4 (06:27→22:11)
[2019-03-11] MEDS ORDERED: Magnesium Replacement Protocol 1 EACH MISC MISCELLANE PRN (06:57)
[2019-03-11] MEDS: MAGNESIUM SULFATE-D5W PMX 1 GM in DEXTROSE/WATER 1 100ML.BAG IVPB SCH ×2 (08:49→12:35)
[2019-03-11] MEDS: METOPROLOL TARTRATE 25 MG TAB PO SCH (08:50)
[2019-03-11] MEDS: LISINOPRIL 10 MG TAB PO SCH (08:50)
[2019-03-11] MEDS ORDERED: ALPRAZolam 0.25 MG TAB PO PRN (10:12)
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
[2019-03-11] MEDS ORDERED: MAGNESIUM SULFATE-D5W PMX 1 GM in DEXTROSE/WATER 1 100ML.BAG IVPB ONE (12:00)
[2019-03-11 12:07] LABS: Glucose,Whole Blood 132 mg/dL (75-99)
[2019-03-11] MEDS: TAPENTADOL HCL 100 MG PO SCH ×2 (12:33→17:08)
[2019-03-11] MEDS: ALBUTEROL NEBULIZED 2.5 MG/3 ML INHALATION PRN ×3 (13:23→21:18)
[2019-03-11 13:28] LABS: ABG Base Excess 6.4 mmol/L; ABG HCO3 32 mmol/L (21-25); ABG Oxygen Saturation 93.8 % (94-97); ABG PCO2 56 mmHg (35-45); ABG PH 7.36 (7.35-7.45); ABG PO2 71 mmHg (83-108); ABG TCO2 34 mmol/L (19-24); Allen Test Performed? Yes
--- NOTE | 2019-03-11 13:30 | CONS ---
CONSULTATION Mandeep Mckeon is a 73-year-old male who presented to the ER at [facility] on March 10, 2019. At that time he had been having frequent falls at home. His was unable to pick him up. He had injury to his right chest. He subsequently was seen in the ER. He was also found to have atrial fibrillation that he does not have a previous history of. His CPK was elevated above 8000 and he subsequently was admitted for further evaluation and management. He denied any recent fever or chills. Denied any recent changes in medications, but he has been weak for the last 3-4 days. He has a known history of severe asthma with COPD, had been started on Fasenra and had actually been doing fair. He is at his baseline shortness of breath, which is typically from his COPD. He has a known history of obstructive sleep apnea as well. PAST MEDICAL HISTORY: Positive for asthma, COPD, obstructive sleep apnea, coronary artery disease status post angioplasty, congestive heart failure, diabetes mellitus, prostatic cancer. FAMILY HISTORY: Positive for coronary artery disease in his father. Mother had a history of renal disease and was on dialysis. 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 He is a former smoker. He does not drink alcohol excessively. MEDICATIONS: Prior to admission were albuterol Zyloprim, Xanax, aspirin, Lipitor, Pulmicort, Perforomist, Neurontin, tiotropium, metformin, ( ), Proventil HFA, and Xanax. REVIEW OF SYSTEMS: Noncontributory other than that that described in history of present illness and past medical history. PHYSICAL EXAMINATION: Blood pressure is 137/96, respiratory rate of 19, pulse of 102, temperature 98.2, O2 saturation on 4 L by nasal cannula is 96%. HEENT reveals pupils are equal. There is redundant tissue in the posterior pharynx. Chest reveals decreased breath sounds. Prolonged expiration. No clear wheeze. Cardiovascular system with an S1, S2. Regular rhythm. Abdomen is soft. There is 1+ to 2+ pedal edema. LABS: Reveal a white count of 7.1, hemoglobin 12.9, platelet count of 110,000. CPK of 8375, bilirubin 1.6, AST 256, ALT 80. Magnesium 1.3. The EKG showed atrial fibrillation with controlled ventricular response. Chest x-ray was reviewed, showed no rib fracture. The patient is allergic to grass, pollen, mold, pollen extract and ragweed pollen. IMPRESSION: 1. New onset atrial fibrillation. 2. Weakness and medical debility, etiology which is unclear. 3. Rhabdomyolysis, which may be due to Lipitor. 4. Asthma with chronic obstructive pulmonary disease that seems fairly stable. 5. History of coronary artery disease. At this point in time would continue him on heparin, bronchodilators. Keep him hydrated. Will hold his Lipitor at this time. We will check an ABG to make sure we are not dealing with CO2 narcosis and have him seen by physical medicine and rehab. Depending on how he does we shall make further changes to his care. MMODL / IJN: [id number] /
--- NOTE | 2019-03-11 13:46 | CONS ---
CONSULTATION Mandeep Mckeon is a 73-year-old somewhat obese gentleman with multiple comorbid conditions. He sees Dr. Hammer in the outpatient setting. Sometime in January 2016 he underwent a cardiac cath which revealed mild noncritical triple-vessel disease with a patent stent in the LAD that was placed a few years ago. Left ventricular end- diastolic pressures were normal. This was a codominant system with circumflex and RCA free of significant disease. This gentleman came into the hospital because he was brought in by EMS with fatigue, weakness, lack of energy. He could not move. He had generalized weakness, malaise. His normally is able to pick him up, but apparently fell down and could not get up and therefore EMS was called. After arrival he was found to be in atrial fibrillation with a moderate ventricular rate. He is also having frequent falls apparently lately. He has no chest discomfort. He complains of generalized weakness, lack of energy. He has not had much appetite and has decreased oral intake lately. PAST MEDICAL HISTORY: 1. Coronary artery disease with previous LAD stenting several years ago. Patent stent in 2015. 2. Diabetes. 3. Hypertension. 4. Hyperlipidemia. 5. History of pneumonia. The patient is status post PCI of the LAD in the past. He has had left knee arthroscopy, bronchoscopy and also had some previous facial surgery. MEDICATIONS: At home include Flomax, Spiriva, metformin, Lasix, Xanax, atorvastatin, lisinopril hydrochlorothiazide, aspirin. He also takes Aldactone. EKG revealed an atrial fibrillation with moderate ventricular rate, nonspecific ST changes with baseline artifact. PHYSICAL EXAMINATION: Blood pressure is 140/70, pulse rate is about 108 per minute, irregular. HEENT unremarkable. Fundus was not examined by me. Neck is supple. There is JVD. There is no carotid bruit. Heart exam reveals S1, S2 with irregularity in rhythm. There is a short systolic murmur audible. Lungs revealed diminished air entry bilateral lung henry. Abdomen is soft and nontender. Lower extremities reveal diminished pulses, mild edema. Central nervous system is grossly within normal limits, but the patient has generalized weakness. He is able to move all 4 extremities. IMPRESSION: 1. New onset atrial fibrillation. 2. Coronary artery disease, stable with a previous LAD PCI, patent stent in 2015. 3. Hypertension. 4. Frequent falls. 5. Rule out any sepsis with generalized weakness, lack of energy. RECOMMENDATIONS: I am recommending that he will need a neurological evaluation to rule out any neurological deficits contributing to his incoordination and poor gait. Advised cautious hydration. I will obtain lactic acid level, perform a septic workup. I will add a small dose of beta reyna and resume his lisinopril. I discussed my thoughts in detail with the patient. However, I am not sure how much he comprehends. I am not sure how good of a candidate he is in terms of long-term anticoagulation. I will discuss this with the hospitalist, Dr. Conner. Thank you very much for the consult. MMODL / IJN: [id number] /
[2019-03-11 17:04] LABS: Glucose,Whole Blood 125 mg/dL (75-99)
[2019-03-11] MEDS: GABAPENTIN 300 MG CAP PO SCH ×2 (17:18→20:22)
[2019-03-11 21:01] LABS: Glucose,Whole Blood 120 mg/dL (75-99)
[2019-03-11] MEDS: BUDESONIDE 0.5 MG/2 ML NEBU INHALATION SCH (21:17)
[2019-03-11] MEDS: FORMOTEROL FUMARATE 20 MCG/2 ML NEBU INHALATION SCH (21:17)
[2019-03-11] MEDS: INSULIN REGULAR 100 UNIT/ML VIAL SQ SCH (22:12)
[2019-03-12] MEDS: TAPENTADOL HCL 100 MG PO SCH ×4 (00:06→16:56)
[2019-03-12] MEDS: HEPARIN SOD,PORK IN 0.45% NACL 25,000 UNIT in 0.45% NACL 1 250ML.BAG IV SCH ×2 (03:52→04:30)
[2019-03-12 04:06] LABS: Basophils % (A) 0 %; Eosinophils % (A) 0 %; HCT 39.7 % (39.0-53.0); HGB 12.1 gm/dL (13.0-17.5); Hypochromasia Moderate; Lymphocytes # (A) 0.9 k/uL (1.0-4.8); Lymphocytes % (A) 14 %; MCH 29.1 pg (25.0-35.0); MCHC 30.5 g/dL (31.0-37.0); MCV 95.2 fL (80.0-100.0); Mean Platelet Volume 7.4; Monocytes # (A) 0.4 k/uL (0-1.0); Monocytes % (A) 7 %; Neutrophils # (A) 4.7 k/uL (1.3-7.7); Neutrophils % (A) 77 %; Platelet Count 132 k/uL (150-450); Poikilocytosis Slight; RBC 4.18 m/uL (4.30-5.90); RDW 15.6 % (11.5-15.5); WBC 6.2 k/uL (3.8-10.6)
[2019-03-12 05:09] LABS: Calcium 8.7 mg/dL (8.4-10.2); Magnesium 1.8 mg/dL (1.6-2.3); Potassium 4.5 mmol/L (3.5-5.1); Total Protein 5.4 g/dL (6.3-8.2)
[2019-03-12 06:30] LABS: Glucose,Whole Blood 150 mg/dL (75-99)
[2019-03-12] MEDS: INSULIN ASPART (NovoLOG) 100 UNIT/ML VIAL SQ SCH ×4 (06:34→21:08)
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
[2019-03-12] MEDS: ALLOPURINOL 100 MG TAB PO SCH (08:40)
[2019-03-12] MEDS: LORATADINE 10 MG TAB PO SCH (08:41)
[2019-03-12] MEDS: ASPIRIN 81 MG PO SCH (08:41)
[2019-03-12] MEDS: LISINOPRIL 10 MG TAB PO SCH (08:41)
[2019-03-12] MEDS: TAMSULOSIN 0.4 MG CAP.ER.24H PO SCH (08:41)
[2019-03-12] MEDS: METOPROLOL TARTRATE 25 MG TAB PO SCH (08:41)
[2019-03-12] MEDS: GABAPENTIN 300 MG CAP PO SCH ×3 (08:41→21:08)
[2019-03-12] MEDS: BUDESONIDE 0.5 MG/2 ML NEBU INHALATION SCH ×2 (08:44→20:48)
[2019-03-12] MEDS: ALBUTEROL NEBULIZED 2.5 MG/3 ML INHALATION SCH (08:44)
[2019-03-12] MEDS: FORMOTEROL FUMARATE 20 MCG/2 ML NEBU INHALATION SCH ×2 (08:44→20:48)
[2019-03-12] MEDS: IPRATROPIUM 0.5 MG/2.5 ML NEBU INHALATION SCH ×4 (08:44→20:49)
[2019-03-12] MEDS ORDERED: ATORVASTATIN 40 MG TAB PO SCH (09:00)
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
[2019-03-12 12:12] LABS: Glucose,Whole Blood 187 mg/dL (75-99)
--- NOTE | 2019-03-12 14:28 | P.PN ---
Subjective Progress Note Date: 03/12/19 This is a 73 year old gentleman with multiple comorbid conditions follows with Dr. Bowens in the office. In January 2016 patient underwent a cardiac catheterization which revealed mild noncritical triple-vessel disease disease with patent stents in the LAD. He presented to the hospital on this admission with symptoms of fatigue, weakness, lack of energy. He was found to be in atrial fibrillation with moderately rapid ventricular response. The patient was seen in consultation by Dr. Cristina. Today he is in a normal sinus rhythm, heart rate is in the 70s, blood pressure 106/60. Because of the patient's recent history of falls he had not been treated on anticoagulation. White blood cell count 6.2, hemoglobin 12.2, platelet count 132. Sodium 141, potassium 4.5, BUN 19 and creatinine 1.2. Objective - Vital Signs Vital signs: Vital Signs Temp 98.1 F 03/12/19 08:00 Pulse 72 03/12/19 09:06 Resp 16 03/12/19 11:49 BP 106/66 03/12/19 08:00 Pulse Ox 94 L 03/12/19 08:00 Intake & Output 03/11/19 03/12/19 03/12/19 18:59 06:59 18:59 Intake Total 1443.7 466.300 250 Balance 1443.7 466.300 250 Weight 113.6 kg Intake: Intake, IV Titration 1083.7 466.300 Amount Heparin Sod,Pork in 0.45% 83.7 166.300 NaCl 25,000 unit In 0.45 % NaCl 1 250ml.bag @ 8.5 UNITS/KG/HR 10.024 mls/hr IV .Q24H [facility]ISHA Rx#: [id number] Magnesium Sulfate-D5w Pmx 100 1 gm In Dextrose/Water 1 100ml.bag @ 100 mls/hr IVPB ONCE ONE Rx#: [id number] Magnesium Sulfate-D5w Pmx 100 1 gm In Dextrose/Water 1 100ml.bag @ 100 mls/hr IVPB Q1H FELISHA Rx#: [id number] Sodium Chloride 0.9% 1, 800 300 000 ml @ 100 mls/hr IV . Q10H FELISHA Rx#:[id number] Oral 360 250 Other: # Voids 0 - Exam PHYSICAL EXAMINATION: GENERAL: gentleman in no acute distress at the time of my examination HEENT: Head is atraumatic, normocephalic. Pupils equal, round. Sclera anicteric. Conjunctiva are clear. Mucous membranes of the mouth are moist. Neck is supple. There is no elevated jugular venous pressure.] bruit is heard. HEART EXAMINATION: Heart S1, S2 normal. No murmur or gallop heard. CHEST EXAMINATION: Lungs are clear to auscultation and precussion. No chest wall tenderness is noted on palpation or with deep breathing. ABDOMEN: Soft, nontender. Bowel sounds are heard. No organomegaly noted. EXTREMITIES: 2+ peripheral pulses with no evidence of peripheral edema and no calf tenderness noted. NEUROLOGIC patient is awake, alert and oriented 3. . - Labs CBC & Chem 7: 03/12/19 03:36 03/12/19 03:36 Labs: Abnormal Lab Results - Last 24 Hours (Table) 03/11/19 03/11/19 03/12/19 Range/Units 16:52 20:58 03:36 RBC 4.18 L (4.30-5.90) m/uL Hgb 12.1 L (13.0-17.5) gm/dL MCHC 30.5 L (31.0-37.0) g/dL RDW 15.6 H (11.5-15.5) % Plt Count 132 L (150-450) k/uL Lymphocytes # 0.9 L (1.0-4.8) k/uL APTT (22.0-30.0) sec Carbon Dioxide (22-30) mmol/L Glucose (74-99) mg/dL POC Glucose (mg/dL) 125 H 120 H (75-99) mg/dL AST (17-59) U/L Creatine Kinase (55-170) U/L Total Protein (6.3-8.2) g/dL Albumin (3.5-5.0) g/dL 03/12/19 03/12/19 03/12/19 Range/Units 03:36 03:36 06:13 RBC (4.30-5.90) m/uL Hgb (13.0-17.5) gm/dL MCHC (31.0-37.0) g/dL RDW (11.5-15.5) % Plt Count (150-450) k/uL Lymphocytes # (1.0-4.8) k/uL APTT 54.1 H (22.0-30.0) sec Carbon Dioxide 35 H (22-30) mmol/L Glucose 193 H (74-99) mg/dL POC Glucose (mg/dL) 150 H (75-99) mg/dL AST 148 H (17-59) U/L Creatine Kinase 2336 H* (55-170) U/L Total Protein 5.4 L (6.3-8.2) g/dL Albumin 3.0 L (3.5-5.0) g/dL 03/12/19 Range/Units 12:11 RBC (4.30-5.90) m/uL Hgb (13.0-17.5) gm/dL MCHC (31.0-37.0) g/dL RDW (11.5-15.5) % Plt Count (150-450) k/uL Lymphocytes # (1.0-4.8) k/uL APTT (22.0-30.0) sec Carbon Dioxide (22-30) mmol/L Glucose (74-99) mg/dL POC Glucose (mg/dL) 187 H (75-99) mg/dL AST (17-59) U/L Creatine Kinase (55-170) U/L Total Protein (6.3-8.2) g/dL Albumin (3.5-5.0) g/dL Microbiology - Last 24 Hours (Table) 03/11/19 08:28 Blood Culture - Preliminary Blood No Growth after 24 hours 03/12/19 06:32 Urine Culture - Preliminary Urine,Voided Assessment and Plan Plan: Assessment and plan #1 paroxysmal atrial fibrillation currently in normal sinus rhythm #2 known history of coronary artery disease with prior PCI #3 hypertension #4 frequent falls Plan From cardiology's perspective, we'll recommend to continue the patient on his current medication. He has not yet been initiated on anticoagulation because of his frequent falls, we will leave the initiation of anticoagulation up to the discretion of the primary doctor. DNP note has been reviewed, I agree with a documented findings and plan of care. Patient was seen and examined.
[2019-03-12 16:44] LABS: Glucose,Whole Blood 108 mg/dL (75-99)
[2019-03-12 20:38] LABS: Glucose,Whole Blood 158 mg/dL (75-99)
[2019-03-12] MEDS: INSULIN REGULAR 100 UNIT/ML VIAL SQ SCH (21:08)
--- NOTE | 2019-03-12 22:08 | PN ---
PROGRESS NOTE DATE OF SERVICE: 03/12/2019 This patient has been hemodynamically stable. He continues to feel weak. On physical examination, blood pressure is 110/58, respiratory rate of 16, pulse rate of 69. He is afebrile. Oxygen saturation on 5 L by nasal cannula is 98%. HEENT is unremarkable. Chest reveals decreased breath sounds, prolonged exhalation but no clear wheeze. Cardiovascular system reveals an S1, S2. Abdomen is soft. There is 1+ pedal edema. IMPRESSION AT THIS TIME: 1. Rhabdomyolysis which may be due to fall versus Lipitor, that is improving. 2. New-onset atrial fibrillation. 3. Recent fall, the etiology of which is unclear. 4. Severe asthma with chronic obstructive pulmonary disease. At this point in time, increase his activity level. Continue bronchodilators, aerosolized steroids. Continue rate-controlling medications. His prognosis at this time is guarded. MMODL / IJN: [id number] /
--- NOTE | 2019-03-13 00:06 | P.PN ---
Subjective Progress Note Date: 03/12/19 Patient is a pleasant 73-year-old white male who was admitted for problems with ambulating in apparent proximal afibrillation which has now returned to sinus rhythm.. Cardiology had not recommended anticoagulation secondary to patient's frequent and new onset of falls. Currently under investigation by neurology while in the hospital as well as rehabilitation services. We'll have physical therapy and occupational therapy assess patient for his strength and balance. The patient denies any further complaints at this time he states that his lungs feel fairly decent. Objective - Vital Signs Vital signs: Vital Signs Temp 98.5 F 03/12/19 20:00 Pulse 86 03/12/19 21:15 Resp 16 03/12/19 20:00 BP 127/61 03/12/19 20:00 Pulse Ox 97 03/12/19 20:49 Intake & Output 03/12/19 03/12/19 03/13/19 06:59 18:59 06:59 Intake Total 456.726 0571 222 Output Total 275 Balance 859.223 0430 -53 Weight 113.6 kg Intake: Intake, IV Titration 466.300 800 Amount Heparin Sod,Pork in 0.45% 166.300 NaCl 25,000 unit In 0.45 % NaCl 1 250ml.bag @ 8.5 UNITS/KG/HR 10.024 mls/hr IV .Q24H [facility] Rx#: [id number] Sodium Chloride 0.9% 1, 300 800 000 ml @ 100 mls/hr IV . Q10H [facility] Rx#:[id number] Oral 944 222 Output: Urine 275 Other: # Voids 0 1 - Exam GENERAL: This is a 73-year-old in no apparent distress at the time of examination. Pleasant and cooperative. HEENT: Head is atraumatic, normocephalic. Pupils are equal, round, and reactive to light. Sclerae anicteric. Conjunctivae are clear. Mucus membranes of the mouth are moist. Neck is supple. RESPIRATORY: Clear to auscultation. Positive for wheezing with no rales, or rhonchi. No use of accessory muscles. Patient maintaining oxygen saturation greater than 92%. No chest wall tenderness is noted on palpation or with deep breathing. CARDIOVASCULAR: Regular rate and rhythm. S1 and S2 noted. No systolic or diastolic murmur auscultated. No JVD noted. No S3 or S4 noted. GASTROINTESTINAL: No distention noted. Abdomen soft and round. Normal active bowel sounds auscultated x 4 quadrants. No pain or tenderness noted upon palpation. INTEGUMENTARY: No cyanosis. No jaundice. No rashes noted. No cellulitis noted. EXTREMITIES: 2+ peripheral pulses. evidence of peripheral edema. calf tenderness noted. NEUROLOGIC: Cranial nerves II-XII intact. PSYCHIATRIC: Awake, alert, and oriented X 3. Appropriate affect. Intact judgement and insight. - Labs CBC & Chem 7: 03/12/19 03:36 03/12/19 03:36 Labs: Abnormal Lab Results - Last 24 Hours (Table) 03/12/19 03/12/19 03/12/19 Range/Units 03:36 03:36 03:36 RBC 4.18 L (4.30-5.90) m/uL Hgb 12.1 L (13.0-17.5) gm/dL MCHC 30.5 L (31.0-37.0) g/dL RDW 15.6 H (11.5-15.5) % Plt Count 132 L (150-450) k/uL Lymphocytes # 0.9 L (1.0-4.8) k/uL APTT 54.1 H (22.0-30.0) sec Carbon Dioxide 35 H (22-30) mmol/L Glucose 193 H (74-99) mg/dL POC Glucose (mg/dL) (75-99) mg/dL AST 148 H (17-59) U/L Creatine Kinase 2336 H* (55-170) U/L Total Protein 5.4 L (6.3-8.2) g/dL Albumin 3.0 L (3.5-5.0) g/dL 03/12/19 03/12/19 03/12/19 Range/Units 06:13 12:11 16:43 RBC (4.30-5.90) m/uL Hgb (13.0-17.5) gm/dL MCHC (31.0-37.0) g/dL RDW (11.5-15.5) % Plt Count (150-450) k/uL Lymphocytes # (1.0-4.8) k/uL APTT (22.0-30.0) sec Carbon Dioxide (22-30) mmol/L Glucose (74-99) mg/dL POC Glucose (mg/dL) 150 H 187 H 108 H (75-99) mg/dL AST (17-59) U/L Creatine Kinase (55-170) U/L Total Protein (6.3-8.2) g/dL Albumin (3.5-5.0) g/dL 03/12/19 Range/Units 20:38 RBC (4.30-5.90) m/uL Hgb (13.0-17.5) gm/dL MCHC (31.0-37.0) g/dL RDW (11.5-15.5) % Plt Count (150-450) k/uL Lymphocytes # (1.0-4.8) k/uL APTT (22.0-30.0) sec Carbon Dioxide (22-30) mmol/L Glucose (74-99) mg/dL POC Glucose (mg/dL) 158 H (75-99) mg/dL AST (17-59) U/L Creatine Kinase (55-170) U/L Total Protein (6.3-8.2) g/dL Albumin (3.5-5.0) g/dL Microbiology - Last 24 Hours (Table) 03/11/19 08:28 Blood Culture - Preliminary Blood No Growth after 24 hours 03/12/19 06:32 Urine Culture - Preliminary Urine,Voided Assessment and Plan (1) New onset atrial fibrillation Current Visit: Yes Status: Acute Code(s): I48.91 - UNSPECIFIED ATRIAL FIBRILLATION SNOMED Code(s): 08515221 (2) Acute renal failure Current Visit: No Status: Acute Code(s): N17.9 - ACUTE KIDNEY FAILURE, UN SPECIFIED SNOMED Code(s): 63445274 (3) Asthma Current Visit: No Status: Acute Code(s): J45.909 - UNSPECIFIED ASTHMA, UNCOMPLICATED SNOMED Code(s): 177871917 (4) COPD (chronic obstructive pulmonary disease) Current Visit: No Status: Acute Code(s): J44.9 - CHRONIC OBSTRUCTIVE PULMONARY DISEASE, UNSPECIFIED SNOMED Code(s): 29449894 (5) Diabetes Current Visit: No Status: Acute Code(s): E11.9 - TYPE 2 DIABETES MELLITUS WITHOUT COMPLICATIONS SNOMED Code(s): 41294432 (6) HTN (hypertension) Current Visit: No Status: Acute Code(s): I10 - ESSENTIAL (PRIMARY) HYPERTENSION SNOMED Code(s): 05960044 (7) Hyperlipemia Current Visit: No Status: Acute Code(s): E78.5 - HYPERLIPIDEMIA, UNSPECIFIED SNOMED Code(s): 09714785 Plan: Patient will continue rehab evaluation as well as consultations by cardiology neurology all to be seen today we'll continue his workup including physical therapy continue to follow patient's progress.
[2019-03-13] MEDS: TAPENTADOL HCL 100 MG PO SCH ×3 (02:51→12:06)
[2019-03-13 04:52] LABS: Basophils % (A) 0 %; Eosinophils % (A) 0 %; HCT 37.4 % (39.0-53.0); Hypochromasia Slight; Lymphocytes # (A) 0.9 k/uL (1.0-4.8); Lymphocytes % (A) 16 %; MCHC 32.1 g/dL (31.0-37.0); MCV 93.6 fL (80.0-100.0); Mean Platelet Volume 6.5; Monocytes # (A) 0.3 k/uL (0-1.0); Monocytes % (A) 6 %; Neutrophils # (A) 4.1 k/uL (1.3-7.7); Neutrophils % (A) 76 %; Platelet Count 110 k/uL (150-450); Poikilocytosis Slight; RBC 3.99 m/uL (4.30-5.90); RDW 15.2 % (11.5-15.5); WBC 5.4 k/uL (3.8-10.6)
[2019-03-13 06:45] LABS: Glucose,Whole Blood 114 mg/dL (75-99)
[2019-03-13] MEDS: SODIUM CHLORIDE 0.9% 1,000 ML IV SCH ×2 (08:23→08:33)
[2019-03-13] MEDS: INSULIN ASPART (NovoLOG) 100 UNIT/ML VIAL SQ SCH ×2 (08:25→12:25)
[2019-03-13] MEDS: IPRATROPIUM 0.5 MG/2.5 ML NEBU INHALATION SCH ×3 (08:27→16:11)
[2019-03-13] MEDS: FORMOTEROL FUMARATE 20 MCG/2 ML NEBU INHALATION SCH (08:27)
[2019-03-13] MEDS: BUDESONIDE 0.5 MG/2 ML NEBU INHALATION SCH (08:27)
[2019-03-13] MEDS: ALBUTEROL NEBULIZED 2.5 MG/3 ML INHALATION SCH (08:27)
[2019-03-13] MEDS: GABAPENTIN 300 MG CAP PO SCH (08:28)
[2019-03-13] MEDS: ASPIRIN 81 MG PO SCH (08:28)
[2019-03-13] MEDS: ALLOPURINOL 100 MG TAB PO SCH (08:29)
[2019-03-13] MEDS: TAMSULOSIN 0.4 MG CAP.ER.24H PO SCH (08:29)
[2019-03-13] MEDS: METOPROLOL TARTRATE 25 MG TAB PO SCH (08:29)
[2019-03-13] MEDS: LISINOPRIL 10 MG TAB PO SCH (08:29)
[2019-03-13] MEDS: LORATADINE 10 MG TAB PO SCH (08:29)
[2019-03-13 10:30] VITALS: RESP 20
[2019-03-13 12:13] LABS: Glucose,Whole Blood 137 mg/dL (75-99)
[2019-03-13] MEDS: HEPARIN SOD,PORK IN 0.45% NACL 25,000 UNIT in 0.45% NACL 1 250ML.BAG IV SCH (12:21)
--- NOTE | 2019-03-13 14:17 | PN ---
PROGRESS NOTE DATE OF SERVICE: 03/13/2019 He is hemodynamically stable. He is more awake, alert. He does not feel weak. On physical examination, his blood pressure is 98/56, respiratory rate of 20, pulse rate of 68, temperature 98.2, O2 saturation on 5 L by nasal cannula is 98%. HEENT reveals no new changes. Chest reveals decreased breath sounds with scattered wheeze. Cardiovascular system reveals an S1, S2. Abdomen is soft. There is 1+ pedal edema. White count is 5.4, hemoglobin of 12, platelet count of 110,000. IMPRESSION: 1. New onset atrial fibrillation for which he will require long-term anticoagulation. 2. Asthma with chronic obstructive pulmonary disease which seems fairly stable. 3. Increase the supplemental oxygen to 10 L at least upon exertion. Continue him on his current medications which were reviewed. Depending on how he does, we shall make further changes to his care. 4. following diagnose well. Rhabdomyolysis which may be resolving, may be related to fall versus Lipitor. MMODL / IJN: [id number] /
--- NOTE | 2019-03-13 15:08 | P.DS ---
Providers Date of admission: 03/11/19 02:39 Expected date of discharge: 03/13/19 Attending physician: Armand Montenegro Consults: 03/11/19 02:39 Consult Physician Urgent Consulting Provider: [facility] Consult Reason/Comments: new afib, elevated trop Do you want consulting provider notified?: Yes, Notify in am 03/11/19 06:58 Consult Physician Routine Consulting Provider: Nicki Burleson Consult Reason/Comments: increase lethargy Do you want consulting provider notified?: Yes, Notify in am 03/11/19 12:28 Consult Physician Routine Consulting Provider: Corby Forbes Consult Reason/Comments: medical debility Do you want consulting provider notified?: Yes Primary care physician: Armand Montenegro Hospital Course: Final Diagnoses: (1) New onset atrial fibrillation Current Visit: Yes Status: Acute Code(s): I48.91 - UNSPECIFIED ATRIAL FIBRILLATION SNOMED Code(s): 64513936 (2) Acute renal failure Current Visit: No Status: Acute Code(s): N17.9 - ACUTE KIDNEY FAILURE, UNSPECIFIED SNOMED Code(s): 72168144 (3) Asthma Current Visit: No Status: Acute Code(s): J45.909 - UNSPECIFIED ASTHMA, UNCOMPLICATED SNOMED Code(s): 631268193 (4) COPD (chronic obstructive pulmonary disease) Current Visit: No Status: Acute Code(s): J44.9 - CHRONIC OBSTRUCTIVE PULMONARY DISEASE, UNSPECIFIED SNOMED Code(s): 07288424 (5) Diabetes Current Visit: No Status: Acute Code(s): E11.9 - TYPE 2 DIABETES MELLITUS WITHOUT COMPLICATIONS SNOMED Code(s): 32168716 (6) HTN (hypertension) Current Visit: No Status: Acute Code(s): I10 - ESSENTIAL (PRIMARY) HYPERTENSION SNOMED Code(s): 96691101 (7) Hyperlipemia Current Visit: No Status: Acute Code(s): E78.5 - HYPERLIPIDEMIA, UNSPECIFIED SNOMED Code(s): 12598588 (8) history of falls Hospital course: Patient is a pleasant 73-year-old white male who was admitted for problems with ambulating in apparent proximal afibrillation which has now returned to sinus rhythm.. Cardiology had not recommended anticoagulation secondary to patient's frequent and new onset of falls. Currently under investigation by neurology while in the hospital as well as rehabilitation services. We'll have physical therapy and occupational therapy assess patient for his strength and balance. The patient denies any further complaints at this time he states that his lungs feel fairly decent. Telemetry sinus rhythm. Significant clinical improvement. No anticoagulation recommended per cardiology secondary to history of falls. Cleared by cardiology for discharge. Patient is being discharged home in a stable condition with guarded prognosis. - Exam GENERAL: This is a 73-year-old in no apparent distress at the time of examination. Pleasant and cooperative. Alert and oriented 3 RESPIRATORY: Clear to auscultation. Positive for wheezing with no rales, or rhonchi. No use of accessory muscles. Patient maintaining oxygen saturation greater than 92%. No chest wall tenderness is noted on palpation or with deep breathing. CARDIOVASCULAR: Regular rate and rhythm. S1 and S2 noted. No systolic or diastolic murmur auscultated. No JVD noted. No S3 or S4 noted. GASTROINTESTINAL: No distention noted. Abdomen soft and round. Normal active bowel sounds auscultated x 4 quadrants. No pain or tenderness noted upon palpation. NEUROLOGIC: Cranial nerves II-XII intact. No focal deficits The impression and plan of care has been dictated as directed. : I performed a history and examination of this patient, discussed the same with the dictator. I agree with the dictator's note ,documented as a scribe. Any additional findings or plans will be noted. Patient Condition at Discharge: Stable Plan - Discharge Summary Discharge Rx Participant: No New Discharge Prescriptions: New Metoprolol Tartrate [Lopressor] 25 mg PO DAILY #30 tab Continue Cetirizine HCl [Zyrtec] 10 mg PO DAILY Allopurinol [Zyloprim] 100 mg PO DAILY Albuterol Sulfate [Proventil Hfa] 2 puff INHALATION RT-QID PRN PRN Reason: Shortness Of Breath Tiotropium [place] [Spiriva] 1 cap INHALATION RT-DAILY metFORMIN HCL 1,000 mg PO BID Budesonide [Pulmicort] 0.5 mg INHALATION RT-BID Albuterol Nebulized [Ventolin Nebulized] 2.5 mg INHALATION RT-DAILY Insulin Regular [humuLIN R] See Protocol SQ BID Tamsulosin [Flomax] 0.4 mg PO DAILY ALPRAZolam [Xanax] 0.5 mg PO BID Insulin Glargine [Lantus] See Protocol SQ HS PRN PRN Reason: Blood Sugar - High Aspirin 81 mg PO DAILY Tapentadol HCl [Nucynta] 100 mg PO Q6H Arformoterol Tartrate [Brovana] 15 mcg INHALATION RT-BID Benralizumab [Fasenra] 30 mg SQ Q30D Gabapentin 600 mg PO TID Guaifenesin/Pseudoephedrne HCl [Mucinex D ER Tablet] 1 tab PO DAILY predniSONE 10 mg PO DAILY Discontinued Potassium Chloride [Klor-Con 10] 20 meq PO DAILY Furosemide [Lasix] 40 mg PO DAILY PRN PRN Reason: Edema Quinapril/Hydrochlorothiazide [Quinapril-Hctz 20-25 mg Tab] 1 tab PO HS Spironolactone [Aldactone] 25 mg PO DAILY No Action Atorvastatin [Lipitor] 40 mg PO DAILY Discharge Medication List Albuterol Nebulized [Ventolin Nebulized] 2.5 mg INHALATION RT-DAILY 05/19/15 [History] Albuterol Sulfate [Proventil Hfa] 2 puff INHALATION RT-QID PRN 05/19/15 [History] Allopurinol [Zyloprim] 100 mg PO DAILY 05/19/15 [History] Budesonide [Pulmicort] 0.5 mg INHALATION RT-BID 05/19/15 [History] Cetirizine HCl [Zyrtec] 10 mg PO DAILY 05/19/15 [History] Insulin Regular [humuLIN R] See Protocol SQ BID 05/19/15 [History] Tamsulosin [Flomax] 0.4 mg PO DAILY 05/19/15 [History] Tiotropium [place] [Spiriva] 1 cap INHALATION RT-DAILY 05/19/15 [History] metFORMIN HCL 1,000 mg PO BID 05/19/15 [History] ALPRAZolam [Xanax] 0.5 mg PO BID 01/19/17 [History] Atorvastatin [Lipitor] 40 mg PO DAILY 05/08/17 [History] Arformoterol Tartrate [Brovana] 15 mcg INHALATION RT-BID 03/24/18 [History] Aspirin 81 mg PO DAILY 03/24/18 [History] Insulin Glargine [Lantus] See Protocol SQ HS PRN 03/24/18 [History] Tapentadol HCl [Nucynta] 100 mg PO Q6H 03/24/18 [History] Benralizumab [Fasenra] 30 mg SQ Q30D 09/21/18 [History] Gabapentin 600 mg PO TID 11/21/18 [History] Guaifenesin/Pseudoephedrne HCl [Mucinex D ER Tablet] 1 tab PO DAILY 11/21/18 [History] predniSONE 10 mg PO DAILY 03/10/19 [History] Metoprolol Tartrate [Lopressor] 25 mg PO DAILY #30 tab 03/13/19 [Rx] Follow up Appointment(s)/Referral(s): Armand Montenegro DO [Primary Care Provider] - 03/23/19 1:20 pm Wilber Hammer MD [STAFF PHYSICIAN] - 03/26/19 9:45 am Patient Instructions/Handouts: A-fib (Atrial Fibrillation) (DC), Heart Healthy Diet (DC), Safe Use of Anticoagulants (DC) Activity/Diet/Wound Care/Special Instructions: No anticoagulation recommended per cardiology secondary to history of falls. Lasix and YANNA inhibitor placed on hold secondary to borderline hypotension, renal function, reevaluate outpatient with PCP.
[2019-03-13 15:43] VITALS: BP 124/70; PULSE 80; TEMP 98.7
--- NOTE | 2019-03-13 16:41 | P.PN ---
Subjective Progress Note Date: 03/13/19 This is a 73 year old gentleman with multiple comorbid conditions follows with Dr. Bowens in the office. In January 2016 patient underwent a cardiac catheterization which revealed mild noncritical triple-vessel disease disease with patent stents in the LAD. He presented to the hospital on this admission with symptoms of fatigue, weakness, lack of energy. He was found to be in atrial fibrillation with moderately rapid ventricular response. The patient was seen in consultation by Dr. Cristina. Today he is in a normal sinus rhythm, heart rate is in the 70s, blood pressure 106/60. Because of the patient's recent history of falls he had not been treated on anticoagulation. White blood cell count 6.2, hemoglobin 12.2, platelet count 132. Sodium 141, potassium 4.5, BUN 19 and creatinine 1.2. 03/13/2019 Patient seen and examined this morning, hemodynamically stable. Blood pressure 124/70 with a heart rate in the 80s, 98% on 5 L of oxygen. Objective - Vital Signs Vital signs: Vital Signs Temp 98.7 F 03/13/19 15:42 Pulse 80 03/13/19 15:42 Resp 20 03/13/19 15:42 BP 124/70 03/13/19 15:42 Pulse Ox 98 03/13/19 15:42 Intake & Output 03/12/19 03/13/19 03/13/19 18:59 06:59 18:59 Intake Total 0398 128 0510 Output Total 625 150 Balance 1744 -153 1112 Weight 116 kg Intake: Intake, IV Titration 800 250 800 Amount Heparin Sod,Pork in 0.45% 250 NaCl 25,000 unit In 0.45 % NaCl 1 250ml.bag @ 8.5 UNITS/KG/HR 10.024 mls/hr IV .Q24H FELISHA Rx#: [id number] Sodium Chloride 0.9% 1, 800 800 000 ml @ 100 mls/hr IV . Q10H FELISHA Rx#:[id number] Oral 944 222 462 Output: Urine 625 150 Other: # Voids 1 - Exam PHYSICAL EXAMINATION: GENERAL: gentleman in no acute distress at the time of my examination HEENT: Head is atraumatic, normocephalic. Pupils equal, round. Sclera anicteric. Conjunctiva are clear. Mucous membranes of the mouth are moist. Neck is supple. There is no elevated jugular venous pressure.] bruit is heard. HEART EXAMINATION: Heart S1, S2 normal. No murmur or gallop heard. CHEST EXAMINATION: Lungs are clear to auscultation and precussion. No chest wall tenderness is noted on palpation or with deep breathing. ABDOMEN: Soft, nontender. Bowel sounds are heard. No organomegaly noted. EXTREMITIES: 2+ peripheral pulses with no evidence of peripheral edema and no calf tenderness noted. NEUROLOGIC patient is awake, alert and oriented 3. . - Labs CBC & Chem 7: 03/13/19 04:10 03/12/19 03:36 Labs: Abnormal Lab Results - Last 24 Hours (Table) 03/12/19 03/12/19 03/13/19 Range/Units 16:43 20:38 04:10 RBC 3.99 L (4.30-5.90) m/uL Hgb 12.0 L (13.0-17.5) gm/dL Hct 37.4 L (39.0-53.0) % Plt Count 110 L (150-450) k/uL Lymphocytes # 0.9 L (1.0-4.8) k/uL APTT (22.0-30.0) sec POC Glucose (mg/dL) 108 H 158 H (75-99) mg/dL 03/13/19 03/13/19 03/13/19 Range/Units 04:10 06:44 12:12 RBC (4.30-5.90) m/uL Hgb (13.0-17.5) gm/dL Hct (39.0-53.0) % Plt Count (150-450) k/uL Lymphocytes # (1.0-4.8) k/uL APTT 69.2 H (22.0-30.0) sec POC Glucose (mg/dL) 114 H 137 H (75-99) mg/dL Microbiology - Last 24 Hours (Table) 03/12/19 06:32 Urine Culture - Final Urine,Voided 03/11/19 08:28 Blood Culture - Preliminary Blood No Growth after 48 hours Assessment and Plan Plan: Assessment and plan #1 paroxysmal atrial fibrillation currently in normal sinus rhythm #2 known history of coronary artery disease with prior PCI #3 hypertension #4 frequent falls Plan From cardiology's perspective, we'll recommend to continue the patient on his current medication. He has not yet been initiated on anticoagulation because of his frequent falls, we will leave the initiation of anticoagulation up to the discretion of the primary doctor. DNP note has been reviewed, I agree with a documented findings and plan of care. Patient was seen and examined.
--- NOTE | 2019-03-19 13:23 | CDI ---
Documentation Clarification Form Date: 03/19/2019 1:05:08 PM From: Malu Cunningham Phone: If you have a question about this query, please contact Hodan Murillo, Battery Container Inspector at [phone] 8am and 5pm Admit Date: 03/11/2019 2:39:00 AM Patient Name: Mandeep Mckeon Visit Number: [id number] Discharge Date: 03/13/2019 5:38:00 PM ATTENTION: The Clinical Documentation Specialists (CDI) and [facility] Coding Staff appreciate your assistance in clarifying documentation. Please respond to the clarification below the line at the bottom and electronically sign. The CDI & [facility] Coding staff will review the response and follow-up if needed. Please note: Queries are made part of the Legal Health Record. If you have any questions, please contact the author of this message via ITS. Dr. Armand Montenegro Asthma is documented in the Dischrg Sum and in Dr. Cristina consult as severe asthma and COPD. Please clarify type of asthma. History/risk factors: COPD, home O2, chroinic respiratory failure, hx of pneumonia, hx of tobacco Vital Signs: 98.7 F 90 bpm 22 129/81 93% 4L Treatment: bronchodilators Consults: Severe asthma with COPD In your professional opinion, can you please further specify the following, if known? Severity Mild intermittent Mild persistent Moderate persistent Severe persistent Acute exacerbation asthma Other, please specify ____ Unable to determine See Discharge summary addendum--- chronic intermittent asthma MTDD
--- NOTE | 2019-03-19 13:29 | CDI ---
Documentation Clarification Form Date: 03/19/2019 1:23:33 PM From: Malu Cunningham Phone: If you have a question about this query, please contact Hodan [place] Records Management Officer at [phone] between 8am and 5pm Admit Date: 03/11/2019 2:39:00 AM Patient Name: Mandeep Mckeon Visit Number: [id number] Discharge Date: 03/13/2019 5:38:00 PM ATTENTION: The Clinical Documentation Specialists (CDI) and [facility] Coding Staff appreciate your assistance in clarifying documentation. Please respond to the clarification below the line at the bottom and electronically sign. The CDI & [facility] Coding staff will review the response and follow-up if needed. Please note: Queries are made part of the Legal Health Record. If you have any questions, please contact the author of this message via ITS. Dr. Armand Montenegro Conflicting documentation has been found in the medical record: H and P documents COPD with NO exacerbtion. 03/12 consult documents Acute exacerbation of COPD. Please clarify if patient had acute exacerbation of COPD or did not. History/Risk Factors: Asthma, COPD, on home O2, chronic respiratory failure. Clinical Indicators: SOB on 4L O2 Treatment: O2 and bronchodilators. In your opinion, what is the most clinically appropriate diagnosis for this patient? COPD Acute exacerbation of COPD Other explanation of clinical findings Unable to determine (no explanation for clinical findings) acute exacerbation of COPD. MTDD
--- NOTE | 2019-04-20 08:48 | CDI ---
Documentation Clarification Form Date: 03/19/2019 1:23:00 PM From: Malu Cunningham Phone: If you have a question about this query, please contact Hodan [place] Transmission Line Engineer at [phone] between 8am and 5pm. Admit Date: 03/11/2019 2:39:00 AM Patient Name: Mandeep Mckeon Visit Number: [id number] Discharge Date: 03/13/2019 5:38:00 PM ATTENTION: The Clinical Documentation Specialists (CDI) and [facility] Coding Staff appreciate your assistance in clarifying documentation. Please respond to the clarification below the line at the bottom and electronically sign. The CDI & [facility] Coding staff will review the response and follow-up if needed. Please note: Queries are made part of the Legal Health Record. If you have any questions, please contact the author of this message via ITS. Dr. Armand Montenegro Conflicting documentation has been found in the medical record regarding COPD: H and P documents COPD with NO exacerbtion. 03/12 consult documents Acute exacerbation of COPD. Please clarify if patient had acute exacerbation of COPD or did not. History/Risk Factors: Asthma, COPD, on home O2, chronic respiratory failure. Clinical Indicators: SOB on 4L O2 Treatment: O2 and bronchodilators. In your opinion, what is the most clinically appropriate diagnosis for this patient? COPD Acute exacerbation of COPD Other explanation of clinical findings Unable to determine (no explanation for clinical findings) acute exacerbation of COPD MTDD
== END 2019-03-13 17:38 | disposition home health service (06) | DRG 309 ==
LOC: EC 23:19 → 3SCARD 03-11 02:39
PROVIDERS: ADMIT Family Medicine; ATTEND Family Medicine
DX: I48.0 Paroxysmal atrial fibrillation (principal); J44.1 Chronic obstructive pulmonary disease with (acute) exacerbation; J96.12 Chronic respiratory failure with hypercapnia; J98.11 Atelectasis; M62.82 Rhabdomyolysis; N17.9 Acute kidney failure, unspecified; J96.11 Chronic respiratory failure with hypoxia; I11.0 Hypertensive heart disease with heart failure; E11.40 Type 2 diabetes mellitus with diabetic neuropathy, unspecified; E11.51 Type 2 diabetes mellitus with diabetic peripheral angiopathy without gangrene; E66.9 Obesity, unspecified; Z68.33 Body mass index [BMI] 33.0-33.9, adult; E78.5 Hyperlipidemia, unspecified; E83.42 Hypomagnesemia; F41.9 Anxiety disorder, unspecified; G47.33 Obstructive sleep apnea (adult) (pediatric); I25.10 Atherosclerotic heart disease of native coronary artery without angina pectoris; I50.9 Heart failure, unspecified; I87.8 Other specified disorders of veins; M19.90 Unspecified osteoarthritis, unspecified site; T46.6X5A Adverse effect of antihyperlipidemic and antiarteriosclerotic drugs, initial encounter; N40.0 Benign prostatic hyperplasia without lower urinary tract symptoms; R29.6 Repeated falls; Z79.4 Long term (current) use of insulin; Z79.82 Long term (current) use of aspirin; Z79.899 Other long term (current) drug therapy; Z82.49 Family history of ischemic heart disease and other diseases of the circulatory system; Z85.46 Personal history of malignant neoplasm of prostate; Z85.828 Personal history of other malignant neoplasm of skin; Z87.01 Personal history of pneumonia (recurrent); Z87.891 Personal history of nicotine dependence; Z91.81 History of falling; Z95.5 Presence of coronary angioplasty implant and graft; Z99.81 Dependence on supplemental oxygen; R79.89 Other specified abnormal findings of blood chemistry; Z84.1 Family history of disorders of kidney and ureter; Z82.61 Family history of arthritis; J45.909 Unspecified asthma, uncomplicated
CPT/HCPCS: 36415; 36600; 80053; 81001; 82550; 82805; 83605; 83735; 84484; 85025; 85610; 85730; 87040; 87086; 93005; 94640; 94760; 96374; 99285

== ENCOUNTER → 2019-05-15 | Outpatient (CLI) | payer OTHER ==
--- NOTE | 2019-05-15 11:14 | US ---
EXAMINATION TYPE: US venous LOWER EXTREMITY VENOUS INSUFFICIENCY CLINICAL HISTORY: E11.622 TYPE 2 DIABETES MELLITUS W/OTHER SKIN ULCE. SIDE PERFORMED: 1) Color flow is present and patency is documented in the following vessels. No DVT or SVT is noted . EIV Common Femoral Vein Deep Femoral Vein Femoral Vein Popliteal Vein Proximal Calf Veins-not visualized due to obesity and swelling Greater Saph Vein Upper Small Saph Vein 2) There is venous reflux noted at the following venous levels: Right: CFV,GSV, FV, Pop V Left: EIV IMPRESSION: Venous reflux bilaterally as discussed above
--- NOTE | 2019-06-04 09:13 | P.ARTDOP ---
Arterial Doppler LOWER EXTREMITY ARTERIAL DOPPLER: DATE OF SERVICE: 05/15/2019 Reason for study: Bilateral calf ulcers. Doppler waveforms: Multiphasic bilaterally throughout. Pulse volume recording: Normal configuration. Pressure gradients: None. Ankle-brachial indices: Greater than 1 bilaterally. Toe pressures: 134 on the right, 121 on the left Impression: Normal study.
== END | disposition home or self-care (01) ==
LOC: RADUSWWP 09:05
PROVIDERS: ATTEND Family Medicine
DX: I87.2 Venous insufficiency (chronic) (peripheral) (principal); I87.313 Chronic venous hypertension (idiopathic) with ulcer of bilateral lower extremity; E11.622 Type 2 diabetes mellitus with other skin ulcer; S91.115A Laceration without foreign body of left lesser toe(s) without damage to nail, initial encounter; Z99.81 Dependence on supplemental oxygen
CPT/HCPCS: 93923; 93970

== ENCOUNTER → 2019-06-13 | Outpatient (CLI) | payer MEDICARE, BC ==
--- NOTE | 2019-06-13 16:16 | XR ---
EXAMINATION TYPE: XR chest 2V DATE OF EXAM: 06/13/2019 COMPARISON: 03/11/2019 HISTORY: 73 year-old male shortness of breath and hypoxia TECHNIQUE: Frontal and lateral views FINDINGS: Heart borderline enlarged. Aorta within normal limits. Diffuse interstitial changes persist. Mild hyp erinflation. No rachel consolidation or pleural effusion. Spinal stimulator array centered along the l ower thoracic spinal canal. IMPRESSION: 1. Persistent borderline heart size. 2. COPD. 3. Mild diffuse interstitial changes. Correlate for mild pulmonary vascular congestion, interstitial pneumonitis, or atypical pneumonias.
== END | disposition home or self-care (01) ==
LOC: RADXRMAIN 15:52
PROVIDERS: ATTEND Family Medicine
DX: J44.9 Chronic obstructive pulmonary disease, unspecified (principal); J84.89 Other specified interstitial pulmonary diseases
CPT/HCPCS: 71046

== ENCOUNTER 2019-10-12 16:06 | Inpatient (IN) | payer OTHER, MEDICARE ==
[2019-10-12] MEDS ORDERED: ALBUTEROL HFA INHALER INHALATION STA (16:20)
[2019-10-12] MEDS ORDERED: methylPREDNISolone SOD SUCCI 125 MG/2 ML VIAL IV STA (16:20)
[2019-10-12] MEDS ORDERED: FUROSEMIDE 10 MG/ML 4 ML VIAL IV STA (16:20)
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
[2019-10-12 17:04] LABS: Albumin 4.4 g/dL (3.5-5.0); Calcium 9.6 mg/dL (8.4-10.2); Magnesium 1.5 mg/dL (1.6-2.3); Potassium 4.8 mmol/L (3.5-5.1); Total Bilirubin 1.4 mg/dL (0.2-1.3); Total Protein 8.4 g/dL (6.3-8.2)
[2019-10-12 17:05] LABS: INR 1.1 (<1.2); Partial Thromboplastin Time 25.3 sec (22.0-30.0); Prothrombin Time 11.3 sec (9.0-12.0)
[2019-10-12 17:07] LABS: Basophils % (A) 0 %; Eosinophils # (A) 0.5 k/uL (0-0.7); Eosinophils % (A) 6 %; HCT 40.1 % (39.0-53.0); Hypochromasia Marked; Lymphocytes % (A) 11 %; MCH 27.8 pg (25.0-35.0); MCHC 29.9 g/dL (31.0-37.0); MCV 92.9 fL (80.0-100.0); Mean Platelet Volume 9.8; Monocytes # (A) 0.5 k/uL (0-1.0); Monocytes % (A) 6 %; Neutrophils # (A) 6.5 k/uL (1.3-7.7); Neutrophils % (A) 75 %; RBC 4.32 m/uL (4.30-5.90); RDW 15.4 % (11.5-15.5); WBC 8.7 k/uL (3.8-10.6)
--- NOTE | 2019-10-12 17:16 | XR ---
EXAMINATION TYPE: XR chest 1V portable DATE OF EXAM: 10/12/2019 COMPARISON: Prior chest x-ray 06/13/2019 HISTORY: Difficulty breathing TECHNIQUE: Single frontal view of the chest is obtained. FINDINGS: Interstitium is increased as on prior exam. Heart size is stable and borderline enlarged. No evident pneumothorax or pleural effusion. Elevation right hemidiaphragm is stable. Thoracic cord s timulator is noted over the midline. There are overlying cardiac leads. IMPRESSION: Findings are similar to prior exam. Interstitial lung disease.
[2019-10-12] MEDS ORDERED: MAGNESIUM SULFATE-D5W PMX 1 GM in DEXTROSE/WATER 1 100ML.BAG IVPB ONE (17:18)
[2019-10-12 17:31] LABS: Poikilocytosis (M) Present
[2019-10-12 17:32] LABS: Platelet Count 81 k/uL (150-450)
[2019-10-12] MEDS ORDERED: IPRATROPIUM-ALBUTEROL 3 ML NEB INHALATION PRN (17:35)
[2019-10-12] MEDS: IPRATROPIUM-ALBUTEROL 3 ML NEB INHALATION SCH (20:33)
[2019-10-12 20:46] LABS: Glucose,Whole Blood 291 mg/dL (75-99)
[2019-10-12] MEDS: FUROSEMIDE 10 MG/ML 4 ML VIAL IV SCH (21:09)
[2019-10-12] MEDS: methylPREDNISolone SOD SUCCI 125 MG/2 ML VIAL IV SCH (23:32)
[2019-10-12 23:49] LABS: Glucose,Whole Blood 432 mg/dL (75-99)
[2019-10-13] MEDS ORDERED: HALOPERIDOL LACTATE 5 MG/ML 1 ML VIAL IM PRN (00:03)
[2019-10-13] MEDS ORDERED: FUROSEMIDE 10 MG/ML 2 ML VIAL IV ONE (00:04)
[2019-10-13] MEDS ORDERED: INSULIN DETEMIR (LEVEMIR) 100 UNIT/ML SYR SQ SCH ×2 (00:15→21:00)
[2019-10-13] MEDS ORDERED: INSULIN ASPART (NovoLOG) 100 UNIT/ML VIAL SQ ONE (00:17)
[2019-10-13] MEDS: methylPREDNISolone SOD SUCCI 125 MG/2 ML VIAL IV SCH ×4 (06:09→23:19)
[2019-10-13 06:11] LABS: Glucose,Whole Blood 310 mg/dL (75-99)
[2019-10-13] MEDS: INSULIN ASPART (NovoLOG) 100 UNIT/ML VIAL SQ SCH ×4 (06:14→20:53)
[2019-10-13] MEDS: IPRATROPIUM-ALBUTEROL 3 ML NEB INHALATION SCH ×4 (08:32→19:15)
[2019-10-13] MEDS: FUROSEMIDE 10 MG/ML 4 ML VIAL IV SCH ×2 (09:43→20:52)
[2019-10-13] MEDS ORDERED: INSULIN GLARGINE 12 UNIT SQ PRN (10:58)
[2019-10-13] MEDS ORDERED: TAMSULOSIN 0.4 MG CAP.ER.24H PO SCH (11:00)
[2019-10-13 12:05] LABS: Glucose,Whole Blood 377 mg/dL (75-99)
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
[2019-10-13] MEDS: MONTELUKAST 10 MG TAB PO SCH (12:34)
[2019-10-13] MEDS: ATORVASTATIN 20 MG TAB PO SCH (12:34)
[2019-10-13] MEDS: METOPROLOL TARTRATE 25 MG TAB PO SCH ×2 (12:34→20:52)
[2019-10-13] MEDS: PREGABALIN 75 MG CAP PO SCH ×2 (12:34→20:52)
[2019-10-13] MEDS: guaiFENesin SYRUP 100MG/5ML 200 MG/10 ML CUP PO SCH (12:35)
--- NOTE | 2019-10-13 14:18 | US ---
EXAMINATION TYPE: US venous doppler duplex LE BI DATE OF EXAM: 10/13/2019 1:59 PM COMPARISON: US 05/15/2019 CLINICAL HISTORY: R/O DVT. swelling SIDE PERFORMED: Bilateral TECHNIQUE: The lower extremity deep venous system is examined utilizing real time linear array sonog benjamín with graded compression, doppler sonography and color-flow sonography. VESSELS IMAGED: External Iliac Vein (EIV) Common Femoral Vein Deep Femoral Vein Greater Saphenous Vein * Femoral Vein Popliteal Vein Small Saphenous Vein * Proximal Calf Veins (* superficial vessels) Right Leg: Negative for DVT Left Leg: Negative for DVT IMPRESSION: No evidence for DVT.
--- NOTE | 2019-10-13 14:50 | CONS ---
CONSULTATION PULMONARY/CRITICAL CARE CONSULTATION: DATE OF SERVICE: 10/13/2019 REASON FOR CONSULTATION: Shortness of breath and fluid retention. This is a 74-year-old gentleman whom we were asked to see because of shortness of breath. He apparently presented to the emergency department on October 11. His primary care physician is Dr. Armand Montenegro. He has a history of significant COPD with apparent lung function which is reported to be 19%. 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 The patient states that he was previously evaluated at [facility] for possible lung transplantation but was told that he was too sick to have a lung transplant. He does have chronic hypoxemic respiratory failure and does use home O2 24/7 at 10 L/minute. He comes in with complaints of increasing shortness of breath. He has a very mild nonproductive cough with occasional blood. No fever. No chills. He denies any contact with anybody who has known coronavirus infection. He does have lower extremity edema. In addition, the patient states he is not having any chest pain or chest discomfort. He denies any nausea, vomiting or diarrhea. There is no abdominal discomfort. He denies all genitourinary complaints. He was seen in the ER and admitted with a diagnosis of COPD exacerbation and hypoxemia. The patient states that he is feeling a bit better today than he was yesterday when he first came. Looking at his his home medications, he is on albuterol updrafts, albuterol inhaler, Zyloprim, Pulmicort updrafts, Zyrtec, Humulin insulin, Flomax, Spiriva, metformin, Xanax, Lipitor, Brovana, aspirin, Lantus insulin, Nucynta, Fasenra, gabapentin, Mucinex, and daily prednisone 10 mg a day. There is also a beta reyna listed here as one of his chronic medications, i.e. metoprolol. ALLERGIES: Include GRASS POLLEN, MOLD, POLLEN EXTRACT AND RAGWEED. PAST MEDICAL HISTORY: Positive for asthma/COPD, pulmonary fibrosis, valley fever, CAD, heart failure, diabetes mellitus, hypertension, DJD, pneumonia, BPH, chronic hypoxemic respiratory failure, chronic back pain, neuropathy, lower extremity edema, left lower leg wound, skin cancer, and chronic anxiety. SURGICAL HISTORY: Includes a number of different procedures including back surgery, heart catheterization with stent, bronchoscopy, bilateral total knee replacements, epidural neurostimulator, bilateral leg vein surgery, skin cancer removal, among other surgical procedures. SOCIAL HISTORY: Positive for previous heavy tobacco use. He smoked for nearly 60 years. He denies illicit drug use. He does drink occasionally. FAMILY HISTORY: Positive for father who had CAD and had previous bypass grafting. Mother has a history of dialysis for chronic renal failure, thyroid disease, and some other minor medical issues. REVIEW OF SYSTEMS: CONSTITUTIONAL: Negative. NEUROLOGIC: Negative. HEENT: Negative. CARDIOVASCULAR: Negative. PULMONARY: Shortness of breath, chest tightness, wheezing, cough, phlegm production, chest congestion. GI: Negative. : Negative. RHEUMATOLOGIC: Negative. IMMUNOLOGIC: Negative. ENDOCRINOLOGIC: Negative. DERMATOLOGIC: Negative. PHYSICAL EXAMINATION: Current vital signs are reviewed. Temperature 97.7, heart rate 80, respiratory rate 20, blood pressure 135/76, mean 95, saturations are between 88 and 89% on 10 L high flow cannula. This is basically what he is on at home. HEENT: Examination is grossly unremarkable. Nasal O2 noted. NECK: Supple. Full range of motion. No adenopathy. Neck veins are flat. CARDIOVASCULAR: Examination reveals regular rhythm and rate. Heart sounds are distant. Heart rate 80. No murmur. LUNGS: Reveal severely diminished breath sounds throughout. A few scattered rhonchi and wheezes are noted. There is some basilar crackles as well. Breath sounds are equal. ABDOMEN: Soft. Bowel sounds are heard. EXTREMITIES: Reveal significant edema, 1 to 2+ and pitting. No cyanosis or clubbing. SKIN: Without rash. NEUROLOGIC: Examination is brief but nonfocal. LAB DATA: Reviewed. White count 8.7, hemoglobin 12, hematocrit 40.1, platelet count 81,000. PT/INR PTT normal. Sodium 144, potassium 4.8, chloride 101, CO2 is 30. Anion gap is 13. BUN and creatinine were 27 and 1.43. N terminal proBNP 6550. Troponin 0.028. Total bilirubin 1.4. Nasopharyngeal swab for COVID-19 infection is negative. Microbiology is currently pending. Chest x-ray shows diffuse interstitial changes. Heart size is enlarged. There is elevation of the right hemidiaphragm which is a chronic issue. Current medications are reviewed. He is currently on DuoNebs q.i.d. and p.r.n., Solu- Medrol 60 mg q.6 hours, Singulair 10 mg at bedtime, Pulmicort and formoterol twice a day, and Keflex. ASSESSMENT: 1. 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 2. Probable cor pulmonale with pulmonary hypertension and right heart failure. 3. History of chronic hypoxemic respiratory failure, on home O2 at 10 L/minute, . 4. Obesity. 5. Stage 3 chronic kidney disease. 6. History of coronary artery disease. 7. History of congestive heart failure. 8. Diabetes mellitus with diabetic neuropathy. 9. History of hypertension. 10.Degenerative joint disease. 11.Benign prostatic hypertrophy. 12.Chronic back pain, status post implantation of a nerve stimulator. 13.Multiple other medical problems and comorbidities. PLAN: Medications are reviewed. Everything seems to be appropriate including short-acting beta agonist and muscarinic antagonist, long-acting beta agonist, inhaled corticosteroids, oral antibiotics and systemic corticosteroids. The patient has quite significantly poor lung function with apparently an FEV1 that is 19% of predicted. He sees my partner Dr. Diaz in the office. Additional recommendations and suggestions are forthcoming. Prognosis is guarded. MMODL / IJN: [id number] /
[2019-10-13] MEDS: CEPHALEXIN 500 MG CAP PO SCH ×2 (15:41→20:51)
[2019-10-13 16:57] LABS: Glucose,Whole Blood 384 mg/dL (75-99)
[2019-10-13] MEDS ORDERED: INSULIN DETEMIR (LEVEMIR) 100 UNIT/ML SYR SQ STA (17:52)
[2019-10-13] MEDS: FORMOTEROL FUMARATE 20 MCG/2 ML NEBU INHALATION SCH (19:15)
[2019-10-13] MEDS: BUDESONIDE 1 MG/2 ML NEBU INHALATION SCH (19:15)
[2019-10-13 20:26] LABS: Glucose,Whole Blood 347 mg/dL (75-99)
[2019-10-13] MEDS: TAMSULOSIN 0.4 MG CAP.ER.24H PO SCH (20:52)
[2019-10-13] MEDS ORDERED: INSULIN DETEMIR (LEVEMIR) 100 UNIT/ML SYR SQ ONE (21:00)
[2019-10-14 06:29] LABS: Glucose,Whole Blood 400 mg/dL (75-99)
[2019-10-14] MEDS: INSULIN ASPART (NovoLOG) 100 UNIT/ML VIAL SQ SCH ×6 (06:31→20:29)
[2019-10-14] MEDS: methylPREDNISolone SOD SUCCI 125 MG/2 ML VIAL IV SCH ×3 (06:31→17:27)
[2019-10-14 07:19] LABS: Calcium 8.3 mg/dL (8.4-10.2); Potassium 4.3 mmol/L (3.5-5.1)
[2019-10-14 07:31] LABS: Basophils % (A) 0 %; Eosinophils % (A) 0 %; HCT 34.3 % (39.0-53.0); HGB 10.1 gm/dL (13.0-17.5); Hypochromasia Marked; Lymphocytes # (A) 0.3 k/uL (1.0-4.8); Lymphocytes % (A) 3 %; MCH 27.2 pg (25.0-35.0); MCHC 29.4 g/dL (31.0-37.0); MCV 92.6 fL (80.0-100.0); Mean Platelet Volume 9.3; Monocytes # (A) 0.3 k/uL (0-1.0); Monocytes % (A) 3 %; Neutrophils % (A) 93 %; RDW 15.6 % (11.5-15.5); WBC 9.6 k/uL (3.8-10.6)
[2019-10-14] MEDS: IPRATROPIUM-ALBUTEROL 3 ML NEB INHALATION SCH ×4 (07:33→20:40)
[2019-10-14] MEDS: FORMOTEROL FUMARATE 20 MCG/2 ML NEBU INHALATION SCH ×2 (07:33→20:39)
[2019-10-14] MEDS: BUDESONIDE 1 MG/2 ML NEBU INHALATION SCH ×2 (07:33→20:39)
[2019-10-14 07:41] LABS: Platelet Count 69 k/uL (150-450)
[2019-10-14] MEDS ORDERED: NON FORMULARY DRUG (Tiotropium Bromide [Spiriva] 1 CAP) INHALATION SCH (08:00)
[2019-10-14 08:40] LABS: Cholesterol 116 mg/dL (<200); HDL Cholesterol 65 mg/dL (40-60); LDL Cholesterol,Calculated 36 mg/dL (0-99); Triglycerides 73 mg/dL (<150)
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
[2019-10-14] MEDS ORDERED: INSULIN DETEMIR (LEVEMIR) 100 UNIT/ML SYR SQ SCH ×2 (09:00→21:00)
[2019-10-14] MEDS: TAMSULOSIN 0.4 MG CAP.ER.24H PO SCH ×2 (09:56→20:28)
[2019-10-14] MEDS: CEPHALEXIN 500 MG CAP PO SCH ×2 (09:56→20:28)
[2019-10-14] MEDS: guaiFENesin SYRUP 100MG/5ML 200 MG/10 ML CUP PO SCH (09:56)
[2019-10-14] MEDS: PREGABALIN 75 MG CAP PO SCH ×2 (09:56→20:28)
[2019-10-14] MEDS: METOPROLOL TARTRATE 25 MG TAB PO SCH ×2 (09:56→20:29)
[2019-10-14] MEDS: ATORVASTATIN 20 MG TAB PO SCH ×2 (09:56→20:29)
[2019-10-14] MEDS: MONTELUKAST 10 MG TAB PO SCH (09:56)
[2019-10-14] MEDS: FUROSEMIDE 10 MG/ML 4 ML VIAL IV SCH (09:56)
[2019-10-14] MEDS: ASPIRIN 81 MG PO SCH (09:56)
[2019-10-14] MEDS: ALLOPURINOL 100 MG TAB PO SCH (09:57)
[2019-10-14 11:37] LABS: Glucose,Whole Blood 433 mg/dL (75-99)
--- NOTE | 2019-10-14 12:00 | P.PN ---
Subjective Progress Note Date: 10/14/19 Principal diagnosis: Acute hypoxic respiratory failure Mr. Mckeon is a 74-year-old male with a past medical history of end-stage lung disease, COPD, CHF, hypertension, osteoarthritis, prostate disorder, insulin- dependent at his rhinitis, recurrent falls, atrial fibrillation coming to the hospital with a chief complaint of difficulty in breathing along with productive cough. Patient was also having increased swelling of his lower extremities for which he has been taking Lasix 80 mg daily prior to hospitalization. Patient is on 10 L of oxygen at home. He is currently being treated for COPD exacerbation along with diastolic CHF exacerbation. On 10/14/2019 - patient is sitting up in his bed appears to be no acute distress. No acute events reported by nursing staff overnight. Patient states that he still continues to have difficulty in breathing. His cough is much better. Denies having any chest pain. He also mentions that his lower extremity swelling is much better. Denies having any dysuria or hematuria. No abdominal pain nausea vomiting or diarrhea. He states his last bowel movement was couple of days back. On reviewing the patient's vitals he was overnight. He has maintaining his saturations around 90% on 10 L of oxygen. On reviewing the labs his blood sugars have been still running high around 300s to 400s. Patient's creatinine jumped from 1.4-1.72. Active Medications Albuterol/Ipratropium (Duoneb 0.5 Mg-3 Mg/3 Ml Soln) 3 ml INHALATION RT-Q4H PRN PRN Reason: Shortness Of Breath Or Wheezing Albuterol/Ipratropium (Duoneb 0.5 Mg-3 Mg/3 Ml Soln) 3 ml INHALATION RT-QID [facility] Last Admin: 10/14/19 11:13 Dose: 3 ml Documented by: Allopurinol (Zyloprim) 100 mg PO DAILY [facility] Last Admin: 10/14/19 09:57 Dose: 100 mg Documented by: Aspirin (Aspirin) 81 mg PO DAILY [facility] Last Admin: 10/14/19 09:56 Dose: 81 mg Documented by: Atorvastatin Calcium (Lipitor) 20 mg PO [facility] Budesonide (Pulmicort) 1 mg INHALATION RT-BID [facility] Last Admin: 10/14/19 07:33 Dose: 1 mg Documented by: Cephalexin (Keflex) 500 mg PO BID [facility] Last Admin: 10/14/19 09:56 Dose: 500 mg Documented by: Formoterol Fumarate (Perforomist) 20 mcg INHALATION RT-BID [facility] Last Admin: 10/14/19 07:33 Dose: 20 mcg Documented by: Furosemide (Lasix) 40 mg IV DAILY [facility] Guaifenesin (Robitussin) 200 mg PO DAILY [facility] Last Admin: 10/14/19 09:56 Dose: 200 mg Documented by: Haloperidol Lactate (Haldol) 2 mg IM ONCE PRN PRN Reason: Agitation or Acute Psychosis Last Admin: 10/13/19 00:20 Dose: 2 mg Documented by: Insulin Aspart (Novolog) 0 unit SQ ACHS [facility]; Protocol Last Admin: 10/14/19 06:31 Dose: 8 unit Documented by: Insulin Aspart (Novolog) 10 unit SQ AC-TID [facility] Insulin Detemir (Levemir) 30 unit SQ HS [facility] Methylprednisolone Sodium Succinate (Solu-Medrol) 60 mg IV Q6HR [facility] Last Admin: 10/14/19 06:31 Dose: 60 mg Documented by: Metoprolol Tartrate (Lopressor) 25 mg PO BID [facility] Last Admin: 10/14/19 09:56 Dose: 25 mg Documented by: Montelukast Sodium (Singulair) 10 mg PO DAILY [facility] Last Admin: 10/14/19 09:56 Dose: 10 mg Documented by: Pregabalin (Lyrica) 150 mg PO BID [facility] Last Admin: 10/14/19 09:56 Dose: 150 mg Documented by: Tamsulosin HCl (Flomax) 0.4 mg PO [facility] Objective - Vital Signs Vital signs: Vital Signs Temp 98 F 10/14/19 08:00 Pulse 84 10/14/19 11:25 Resp 18 10/14/19 08:00 BP 145/72 10/14/19 08:00 Pulse Ox 90 L 10/14/19 08:00 Intake & Output 10/13/19 10/14/19 10/14/19 18:59 06:59 18:59 Intake Total 720 240 Output Total 2400 1080 350 Balance -1680 -1080 -110 Weight 118.5 kg Intake: Oral 720 240 Output: Urine 2400 1080 350 Other: Voiding Method Urinal Urinal # Voids 1 3 1 # Bowel Movements 0 - Exam PHYSICAL EXAM GEN. APPEARANCE: alert, in no apparent distress HEAD EXAM: atraumatic, normocephalic, normal inspection EYE EXAM: No pallor. No icterus. ENT EXAM: mucous membranes moist NECK EXAM: No JVD. No thyromegaly. RESPIRATORY EXAM: Decreased breath sounds in all lung henry. No wheezing or crackles CARDIOVASCULAR EXAM: S1-S2 heard. GI/ABDOMINAL EXAM: Abdomen is soft nontender. Bowel sounds are positive. No guarding or rigidity. EXTREMITIES EXAM: Bilateral lower extremity pitting edema- decreased compared to yesterday. Pinkish discoloration of the skin showing early signs of cellulitis. Breakdown of skin in few areas. NEUROLOGICAL EXAM: alert, oriented X3, no focal neurological deficits. Power is 5 out of 5 in all 4 extremities. Reflexes within normal limits. PSYCHIATRIC EXAM: normal affect, normal mood - Labs CBC & Chem 7: 10/14/19 05:55 10/14/19 05:55 Labs: Abnormal Lab Results - Last 24 Hours (Table) 10/13/19 10/13/19 10/13/19 Range/Units 12:01 16:51 20:23 RBC (4.30-5.90) m/uL Hgb (13.0-17.5) gm/dL Hct (39.0-53.0) % MCHC (31.0-37.0) g/dL RDW (11.5-15.5) % Plt Count (150-450) k/uL Neutrophils # (1.3-7.7) k/uL Lymphocytes # (1.0-4.8) k/uL Chloride (98-107) mmol/L Carbon Dioxide (22-30) mmol/L BUN (9-20) mg/dL Creatinine (0.66-1.25) mg/dL Glucose (74-99) mg/dL POC Glucose (mg/dL) 377 H 384 H 347 H (75-99) mg/dL Calcium (8.4-10.2) mg/dL HDL Cholesterol (40-60) mg/dL 10/14/19 10/14/19 10/14/19 Range/Units 05:55 05:55 05:55 RBC 3.70 L (4.30-5.90) m/uL Hgb 10.1 L (13.0-17.5) gm/dL Hct 34.3 L (39.0-53.0) % MCHC 29.4 L (31.0-37.0) g/dL RDW 15.6 H (11.5-15.5) % Plt Count 69 L (150-450) k/uL Neutrophils # 9.0 H (1.3-7.7) k/uL Lymphocytes # 0.3 L (1.0-4.8) k/uL Chloride 91 L (98-107) mmol/L Carbon Dioxide 36 H (22-30) mmol/L BUN 41 H (9-20) mg/dL Creatinine 1.72 H (0.66-1.25) mg/dL Glucose 356 H (74-99) mg/dL POC Glucose (mg/dL) (75-99) mg/dL Calcium 8.3 L (8.4-10.2) mg/dL HDL Cholesterol 65 H (40-60) mg/dL 10/14/19 Range/Units 06:27 RBC (4.30-5.90) m/uL Hgb (13.0-17.5) gm/dL Hct (39.0-53.0) % MCHC (31.0-37.0) g/dL RDW (11.5-15.5) % Plt Count (150-450) k/uL Neutrophils # (1.3-7.7) k/uL Lymphocytes # (1.0-4.8) k/uL Chloride (98-107) mmol/L Carbon Dioxide (22-30) mmol/L BUN (9-20) mg/dL Creatinine (0.66-1.25) mg/dL Glucose (74-99) mg/dL POC Glucose (mg/dL) 400 H (75-99) mg/dL Calcium (8.4-10.2) mg/dL HDL Cholesterol (40-60) mg/dL Microbiology - Last 24 Hours (Table) 10/12/19 16:40 Blood Culture - Preliminary Blood No Growth after 24 hours Assessment and Plan Assessment: ASSESSMENT Acute hypoxic respiratory failure Acute COPD exacerbation Acute diastolic congestive heart failure exacerbation End stage lung disease Bilateral lower extremity swelling Chronic kidney disease stage II Insulin-dependent diabetes mellitus poorly controlled Chronic thrombocytopenia History of atrial fibrillation History of recurrent falls Hypomagnesemia Hyperbilirubinemia Chronic anemia History of coronary artery disease status post CABG in the past Hypertension Hyperlipidemia Bilateral lower extremity neuropathy Left knee arthroplasty Former smoker Obesity with BMI of 35 PLAN: Patient had bilateral lower extremity Doppler done yesterday which was negative for DVT. He seems to be responding to IV Lasix as his lower extremity swelling is much better. Unfortunately his creatinine jumped from 1.4-1.72. So we will decrease the dose of IV Lasix from 40 mg twice a day to 40 once a day. Echocardiogram is pending. To continue with breathing treatments and IV steroids. Continue with Keflex for possible lower extremity cellulitis. As the patient's blood sugars have been running in the 300s to 400, we will add 10 units of NovoLog 3 times a day before meals. Continue with 30 of Lantus daily at bedtime. Continue with the rest of his current medication regimen. Further recommendations to follow depending on the progress of the patient.
[2019-10-14] MEDS ORDERED: SODIUM CHLORIDE 0.65% NASAL SPRAY 44 ML BTL NASAL PRN (14:48)
--- NOTE | 2019-10-14 15:26 | PN ---
PROGRESS NOTE 74-year-old male who we saw yesterday in consultation. The patient has a history of quite severe COPD. He apparently has an FEV1 which is 19% of predicted. His shortness of breath was thought to be multifactorial, in part related to chronic obstructive pulmonary disease exacerbation, a known history of pulmonary fibrosis, and mild CHF. Today, he is sitting up at the side of the bed. He states he is feeling better. His lower extremity edema is improved. He is chronically on 10 L of nasal oxygen even at home. He was apparently evaluated at [facility] for lung transplantation but was thought to be too high risk. The patient also likely suffers from chronic cor pulmonale with pulmonary hypertension and right heart failure. Again, he is feeling a bit better today than yesterday. PHYSICAL EXAMINATION: Current vital signs are reviewed. Temperature is 98, heart rate 88, respiratory rate 18, blood pressure 145/72, mean 96. Saturations are right around 90% on 10 L. Again, that is what he is on at home chronically. HEENT: Examination is grossly unremarkable. Nasal O2 noted. NECK: Supple full range of motion. No adenopathy. Neck veins are flat. CARDIOVASCULAR: Examination reveals regular rhythm and rate. Heart sounds are distant. Heart rate 84. No murmur. LUNGS: Reveal some bibasilar crackles. There are a few scattered rhonchi. No wheezes. Breath sounds are severely diminished throughout. ABDOMEN: Obese. Bowel sounds are heard. EXTREMITIES are intact. He has some chronic venous stasis changes, some dry skin and some lower extremity edema. It is 1+ and pitting. SKIN: Otherwise is without rash other than what was mentioned above. NEUROLOGIC: Examination is brief but nonfocal. LABS: Reviewed. White count 9.6, hemoglobin 10.1, hematocrit 34.3, platelet count 69,000. Sodium 139, potassium 4.3, chloride 91, CO2 is 36, anion gap is 12. BUN and creatinine were 41 and 1.72. Rest of the labs are reviewed. Microbiology including blood cultures are currently negative. Venous Dopplers of the lower extremities because of his edema was negative for DVT. Medications were adjusted yesterday. ASSESSMENT: 1. 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 2. Probable cor pulmonale with pulmonary hypertension and right heart failure. 3. Chronic hypoxemic respiratory failure, on home O2 at 10 L/minutes, . 4. Obesity. 5. Stage 3 chronic kidney disease. 6. History of coronary artery disease. 7. History of congestive heart failure. 8. Diabetes mellitus with diabetic neuropathy. 9. History of hypertension. 10.Degenerative joint disease. 11.Benign prostatic hypertrophy. 12.Chronic back pain, status post implantation of a nerve stimulator. 13.Multiple other medical problems and comorbidities. PLAN: Currently, the patient seems to be doing a lot better. The patient is on appropriate medications including short-acting beta agonists and muscarinic antagonist, long-acting beta agonist, inhaled corticosteroids, oral antibiotics and systemic corticosteroids. The patient has poor lung function. The patient has an FEV1 which is apparently 19%. He is typically on oxygen at 10 L/minute. His lower extremity edema is improved. He typically sees my partner, Dr. Diaz, in the office. He will definitely need followup post discharge. We will continue to follow. Prognosis is guarded. MMODL / IJN: [id number] /
[2019-10-14 16:37] LABS: Glucose,Whole Blood 318 mg/dL (75-99)
[2019-10-14 20:01] LABS: Glucose,Whole Blood 301 mg/dL (75-99)
[2019-10-15 00:17] LABS: Glucose,Whole Blood 352 mg/dL (75-99)
[2019-10-15] MEDS: methylPREDNISolone SOD SUCCI 125 MG/2 ML VIAL IV SCH ×5 (00:21→23:39)
[2019-10-15 06:08] LABS: Glucose,Whole Blood 300 mg/dL (75-99)
[2019-10-15] MEDS: INSULIN ASPART (NovoLOG) 100 UNIT/ML VIAL SQ SCH ×7 (06:50→22:07)
[2019-10-15] MEDS: BUDESONIDE 1 MG/2 ML NEBU INHALATION SCH ×2 (06:51→20:15)
[2019-10-15] MEDS: IPRATROPIUM-ALBUTEROL 3 ML NEB INHALATION SCH ×4 (06:51→20:15)
[2019-10-15] MEDS: FORMOTEROL FUMARATE 20 MCG/2 ML NEBU INHALATION SCH ×2 (06:51→20:15)
[2019-10-15 07:39] LABS: Calcium 8.3 mg/dL (8.4-10.2); Magnesium 1.8 mg/dL (1.6-2.3); Potassium 4.2 mmol/L (3.5-5.1)
[2019-10-15 08:03] LABS: Basophils % (A) 0 %; Eosinophils % (A) 0 %; HCT 35.1 % (39.0-53.0); HGB 10.5 gm/dL (13.0-17.5); Hypochromasia Marked; Lymphocytes # (A) 0.2 k/uL (1.0-4.8); Lymphocytes % (A) 3 %; MCH 27.4 pg (25.0-35.0); MCHC 29.9 g/dL (31.0-37.0); MCV 91.7 fL (80.0-100.0); Mean Platelet Volume 9.2; Monocytes # (A) 0.3 k/uL (0-1.0); Monocytes % (A) 3 %; Neutrophils % (A) 93 %; RBC 3.83 m/uL (4.30-5.90); RDW 15.4 % (11.5-15.5); WBC 8.6 k/uL (3.8-10.6)
[2019-10-15 08:08] LABS: Platelet Count 64 k/uL (150-450)
[2019-10-15] MEDS: ASPIRIN 81 MG PO SCH (08:34)
[2019-10-15] MEDS: CEPHALEXIN 500 MG CAP PO SCH ×2 (08:34→22:06)
[2019-10-15] MEDS: METOPROLOL TARTRATE 25 MG TAB PO SCH ×2 (08:34→22:06)
[2019-10-15] MEDS: PREGABALIN 75 MG CAP PO SCH ×2 (08:34→22:06)
[2019-10-15] MEDS: guaiFENesin SYRUP 100MG/5ML 200 MG/10 ML CUP PO SCH (08:34)
[2019-10-15] MEDS: ALLOPURINOL 100 MG TAB PO SCH (08:34)
[2019-10-15] MEDS: MONTELUKAST 10 MG TAB PO SCH (08:34)
[2019-10-15] MEDS ORDERED: FUROSEMIDE 10 MG/ML 4 ML VIAL IV SCH (09:00)
--- NOTE | 2019-10-15 11:00 | ECHOF ---
Referral Reason:LE swelling MEASUREMENTS -------- HEIGHT: 180.3 cm WEIGHT: 118.4 kg BP: RVIDd: 4.7 cm (< 3.3) IVSd: 1.7 cm (0.6 - 1.1) LVIDd: 4.3 cm (3.9 - 5.3) LVPWd: 1.7 cm (0.6 - 1.1) IVSs: 2.1 cm LVIDs: 2.2 cm LVPWs: 2.2 cm Ao Diam: 2.9 cm (2.0 - 3.7) AV Cusp: 1.7 cm (1.5 - 2.6) LA Diam: 4.1 cm (2.7 - 3.8) MV EXCURSION: 20.607 mm (> 18.000) MV EF SLOPE: 98 mm/s (70 - 150) EPSS: 0.2 cm MV E Mario: 0.93 m/s MV DecT: 179 ms MV A Mario: 0.99 m/s MV E/A Ratio: 0.94 AV maxP.59 mmHg AV meanP.52 mmHg RAP: 5.00 mmHg RVSP: 54.81 mmHg FINDINGS -------- Sinus rhythm. This was a technically difficult study with suboptimal views. The left ventricular size is normal. There is severe concentric left ventricular hypertrophy. Ove rall left ventricular systolic function is normal with, an EF between 55 - 60 %. There is paradoxic al/dysynergic septal motion consistent with right ventricular volume overload and/or elevated right v entricular end-diastolic pressure. The right ventricle is severely enlarged. The left atrium is mildly dilated. The right atrial size is normal. Aortic valve is trileaflet and is mildly thickened. There is mild aortic stenosis present. Peak/m isaias gradient across the Aortic Valve is 19.59mmHg / 11.52mmHg. The mitral valve is normal. The mitral valve leaflets are mildly thickened. Mild mitral regurgita tion is present. The tricuspid valve appears structurally normal. Mild tricuspid regurgitation present. There is m oderate pulmonary hypertension. The right ventricular systolic pressure, as measured by Doppler, is 54.81mmHg. Trace/mild (physiologic) pulmonic regurgitation. The aortic root size is normal. IVC Not well visulized. There is no pericardial effusion. CONCLUSIONS -------- 1. Sinus rhythm. 2. This was a technically difficult study with suboptimal views. 3. The left ventricular size is normal. 4. There is severe concentric left ventricular hypertrophy. 5. There is paradoxical/dysynergic septal motion consistent with right ventricular volume overload an d/or elevated right ventricular end-diastolic pressure. 6. The right ventricle is severely enlarged. 7. The left atrium is mildly dilated. 8. The right atrial size is normal. 9. Aortic valve is trileaflet and is mildly thickened. 10. There is mild aortic stenosis present. 11. Peak/mean gradient across the Aortic Valve is 19.59mmHg / 11.52mmHg. 12. The mitral valve is normal. 13. The mitral valve leaflets are mildly thickened. 14. Mild mitral regurgitation is present. 15. The tricuspid valve appears structurally normal. 16. Mild tricuspid regurgitation present. 17. There is moderate pulmonary hypertension. 18. The right ventricular systolic pressure, as measured by Doppler, is 54.81mmHg. 19. Trace/mild (physiologic) pulmonic regurgitation. 20. The aortic root size is normal. 21. IVC Not well visulized. 22. There is no pericardial effusion. HORSE STUD MANAGER: Naomi Landry RDCS
[2019-10-15 11:41] LABS: Glucose,Whole Blood 364 mg/dL (75-99)
--- NOTE | 2019-10-15 12:19 | P.PN ---
Subjective Progress Note Date: 10/15/19 Principal diagnosis: Shortness of breath On 10/15/2019 patient seen in follow-up on selective care unit. He is awake and alert, is currently on 11 L of oxygen the pulse ox of 9 8%, he is diuresing, remains her, lower extremity edema is improving, patient normally wears 10 L of oxygen at home. Based on his pulse ox we dropped his FiO2 down to 6 L however patient quickly desaturated and his pulse ox was 84% on 6 L, subsequently his FiO2 was increased back up to 9 L, we'll continue checking his pulse ox, clinically patient is stable, improving, he is in -885 ML fluid balance over the last 24 hours. Today's labs have been reviewed, no leukocytosis, renal profile slightly improved Objective - Vital Signs Vital signs: Vital Signs Temp 98.2 F 10/15/19 04:05 Pulse 80 10/15/19 11:04 Resp 20 10/15/19 04:05 BP 154/75 10/15/19 04:05 Pulse Ox 98 10/15/19 06:51 Intake & Output 10/14/19 10/15/19 10/15/19 18:59 06:59 18:59 Intake Total 1240 790 Output Total 3449 304 7237 Balance -410 -318 -360 Weight 118.6 kg Intake: Oral 1240 790 Output: Urine 6870 868 4712 Other: Voiding Method Urinal Urinal # Voids 1 1 1 - Exam GENERAL EXAM: Alert, very pleasant, 74-year-old white male, on 11 L of oxygen and the pulse ox of 98% comfortable in no apparent distress. HEAD: Normocephalic/atraumatic. EYES: Normal reaction of pupils, equal size. Conjunctiva pink, sclera white. NOSE: Clear with pink turbinates. THROAT: No erythema or exudates. NECK: No masses, no JVD, no thyroid enlargement, no adenopathy. CHEST: No chest wall deformity. Symmetrical expansion. LUNGS: Equal air entry with no crackles, wheeze, rhonchi or dullness. CVS: Regular rate and rhythm, normal S1 and S2, no gallops, no murmurs, no rubs ABDOMEN: Soft, nontender. No hepatosplenomegaly, normal bowel sounds, no guarding or rigidity. EXTREMITIES: No clubbing, 1+ edema, no cyanosis, 2+ pulses and upper and lower extremities. MUSCULOSKELETAL: Muscle strength and tone normal. SPINE: No scoliosis or deformity SKIN: No rashes CENTRAL NERVOUS SYSTEM: Alert and oriented -3. No focal deficits, tone is normal in all 4 extremities. PSYCHIATRIC: Alert and oriented -3. Appropriate affect. Intact judgment and insight. - Labs CBC & Chem 7: 10/15/19 06:31 10/15/19 06:31 Labs: Abnormal Lab Results - Last 24 Hours (Table) 10/14/19 10/14/19 10/15/19 Range/Units 16:36 19:59 00:16 RBC (4.30-5.90) m/uL Hgb (13.0-17.5) gm/dL Hct (39.0-53.0) % MCHC (31.0-37.0) g/dL Plt Count (150-450) k/uL Neutrophils # (1.3-7.7) k/uL Lymphocytes # (1.0-4.8) k/uL Chloride (98-107) mmol/L Carbon Dioxide (22-30) mmol/L BUN (9-20) mg/dL Creatinine (0.66-1.25) mg/dL Glucose (74-99) mg/dL POC Glucose (mg/dL) 318 H 301 H 352 H (75-99) mg/dL Calcium (8.4-10.2) mg/dL 10/15/19 10/15/19 10/15/19 Range/Units 06:06 06:31 06:31 RBC 3.83 L (4.30-5.90) m/uL Hgb 10.5 L (13.0-17.5) gm/dL Hct 35.1 L (39.0-53.0) % MCHC 29.9 L (31.0-37.0) g/dL Plt Count 64 L (150-450) k/uL Neutrophils # 8.0 H (1.3-7.7) k/uL Lymphocytes # 0.2 L (1.0-4.8) k/uL Chloride 89 L (98-107) mmol/L Carbon Dioxide 38 H (22-30) mmol/L BUN 45 H (9-20) mg/dL Creatinine 1.58 H (0.66-1.25) mg/dL Glucose 286 H (74-99) mg/dL POC Glucose (mg/dL) 300 H (75-99) mg/dL Calcium 8.3 L (8.4-10.2) mg/dL 10/15/19 Range/Units 11:39 RBC (4.30-5.90) m/uL Hgb (13.0-17.5) gm/dL Hct (39.0-53.0) % MCHC (31.0-37.0) g/dL Plt Count (150-450) k/uL Neutrophils # (1.3-7.7) k/uL Lymphocytes # (1.0-4.8) k/uL Chloride (98-107) mmol/L Carbon Dioxide (22-30) mmol/L BUN (9-20) mg/dL Creatinine (0.66-1.25) mg/dL Glucose (74-99) mg/dL POC Glucose (mg/dL) 364 H (75-99) mg/dL Calcium (8.4-10.2) mg/dL Microbiology - Last 24 Hours (Table) 10/12/19 16:40 Blood Culture - Preliminary Blood No Growth after 48 hours Assessment and Plan Plan: Assessment: #1. Severe COPD with underlying FEV1 of 19% on home oxygen at 10 L on the regular basis #2. Acute exacerbation of CHF diastolic dysfunction #3. Moderately severe pulmonary hypertension with right-sided pressures of 54.8 mmHg #4. Diabetes mellitus type 2 poorly controlled #5. Recurrent falls #6. Chronic anemia #7. History of coronary artery disease status post bypass grafting #8. Hypertension #9. Hyperlipidemia #10. Bilateral lower extremity neuropathy #11. Former smoker #12. Obesity Plan: Continue current medical treatment, IV diuretics, FiO2 down to 9 L, patient is breathing easier, has been afebrile, continue bronchodilators and steroids will follow I performed a history & physical examination of the patient and discussed their management with my nurse practitioner, Ama Vernon. I reviewed the nurse practitioner's note and agree with the documented findings and plan of care. Lung sounds are positive for diminished breath sounds throughout the lung henry. The findings and the impression was discussed with the patient. I attest to the documentation by the nurse practitioner. Time with Patient: Less than 30
--- NOTE | 2019-10-15 12:23 | P.PN ---
Subjective Progress Note Date: 10/15/19 This is a 74-year-old gentleman with past medical history significant for coronary artery disease and prior PCI of the LAD in 2015, hypertension, hyperlipidemia, end-stage COPD on home O2, he follows regularly in the office with Dr. Hammer. Echocardiogram with Doppler study was performed, which revealed an ejection fraction of 55-60%. RV is severely enlarged. Severe concentric LVH. Patient overall has been diuresing well on IV Lasix. Blood pressure 145/70 with a heart rate 60-80, 96% on 10 L high flow. White blood cell count 8.6, hemoglobin 10.5, platelet count 64. Sodium 138, potassium 4.2, BUN 45, creatinine 1.5, magnesium 1.8. Objective - Vital Signs Vital signs: Vital Signs Temp 98.2 F 10/15/19 04:05 Pulse 80 10/15/19 11:04 Resp 20 10/15/19 04:05 BP 154/75 10/15/19 04:05 Pulse Ox 98 10/15/19 06:51 Intake & Output 10/14/19 10/15/19 10/15/19 18:59 06:59 18:59 Intake Total 1240 790 Output Total 8993 568 7231 Balance -410 -475 -360 Weight 118.6 kg Intake: Oral 1240 790 Output: Urine 4270 581 1908 Other: Voiding Method Urinal Urinal # Voids 1 1 1 - Exam PHYSICAL EXAMINATION Blood pressure 144/78 heart rate 64 afebrile and maintaining oxygen saturation on nasal cannula. CONSTITUTIONAL: No apparent distress. HEENT: Head is normocephalic. Pupils are equal, round. Sclerae anicteric. Mucous membranes of the mouth are moist. No JVD. No carotid bruit. CHEST EXAMINATION: Diminished bilaterally, diffuse expiratory wheezes throughout, no rales or rhonchi. No chest wall tenderness is noted on palpation or with deep breathing. HEART EXAMINATION: Regular rate and rhythm. S1, S2 heard. Systolic ejection murmur at the base and left sternal border, no gallops or rub. ABDOMEN: Soft, nontender. Positive bowel sounds. EXTREMITIES: 2+ peripheral pulses, bilateral lower extremity 1+ pitting edema, erythema and dry skin. No calf tenderness. NEUROLOGIC EXAMINATION: Patient is awake, alert and oriented x3. - Labs CBC & Chem 7: 10/15/19 06:31 10/15/19 06:31 Labs: Abnormal Lab Results - Last 24 Hours (Table) 10/14/19 10/14/19 10/15/19 Range/Units 16:36 19:59 00:16 RBC (4.30-5.90) m/uL Hgb (13.0-17.5) gm/dL Hct (39.0-53.0) % MCHC (31.0-37.0) g/dL Plt Count (150-450) k/uL Neutrophils # (1.3-7.7) k/uL Lymphocytes # (1.0-4.8) k/uL Chloride (98-107) mmol/L Carbon Dioxide (22-30) mmol/L BUN (9-20) mg/dL Creatinine (0.66-1.25) mg/dL Glucose (74-99) mg/dL POC Glucose (mg/dL) 318 H 301 H 352 H (75-99) mg/dL Calcium (8.4-10.2) mg/dL 10/15/19 10/15/19 10/15/19 Range/Units 06:06 06:31 06:31 RBC 3.83 L (4.30-5.90) m/uL Hgb 10.5 L (13.0-17.5) gm/dL Hct 35.1 L (39.0-53.0) % MCHC 29.9 L (31.0-37.0) g/dL Plt Count 64 L (150-450) k/uL Neutrophils # 8.0 H (1.3-7.7) k/uL Lymphocytes # 0.2 L (1.0-4.8) k/uL Chloride 89 L (98-107) mmol/L Carbon Dioxide 38 H (22-30) mmol/L BUN 45 H (9-20) mg/dL Creatinine 1.58 H (0.66-1.25) mg/dL Glucose 286 H (74-99) mg/dL POC Glucose (mg/dL) 300 H (75-99) mg/dL Calcium 8.3 L (8.4-10.2) mg/dL 10/15/19 Range/Units 11:39 RBC (4.30-5.90) m/uL Hgb (13.0-17.5) gm/dL Hct (39.0-53.0) % MCHC (31.0-37.0) g/dL Plt Count (150-450) k/uL Neutrophils # (1.3-7.7) k/uL Lymphocytes # (1.0-4.8) k/uL Chloride (98-107) mmol/L Carbon Dioxide (22-30) mmol/L BUN (9-20) mg/dL Creatinine (0.66-1.25) mg/dL Glucose (74-99) mg/dL POC Glucose (mg/dL) 364 H (75-99) mg/dL Calcium (8.4-10.2) mg/dL Microbiology - Last 24 Hours (Table) 10/12/19 16:40 Blood Culture - Preliminary Blood No Growth after 48 hours Assessment and Plan Plan: ASSESSMENT and plan #1 Acute on chronic diastolic heart failure #2 COPD exacerbation, known pulmonary fibrosis #3 Hypomagnesemia #4 Thrombocytopenia #5 Acute kidney injury #6 Coronary artery disease status post PCI to the LAD in 2014 #7 Hypertension #8 Dyslipidemia Plan We will discontinue the IV Lasix today and start the patient on oral diuretics. Check labs in the morning. DNP note has been reviewed, I agree with a documented findings and plan of care. Patient was seen and examined.
--- NOTE | 2019-10-15 14:45 | P.PN ---
Subjective Progress Note Date: 10/15/19 This is 74-year-old gentleman admitted with severe COPD exacerbation, acute CHF exacerbation with severe pulmonary hypertension and multiple other medical issues. Diuresing well on IV diuretics with 24-hour I&O reflecting a negative fluid balance, decreasing bilateral lower extremity edema. Creatinine im proving, trending down to 1.58. FiO2 weaned down to 9 L,( baseline 10 L). Objective - Vital Signs Vital signs: Vital Signs Temp 97.1 F L 10/15/19 12:00 Pulse 86 10/15/19 12:00 Resp 16 10/15/19 12:00 BP 133/91 10/15/19 12:00 Pulse Ox 92 L 10/15/19 12:00 Intake & Output 10/14/19 10/15/19 10/15/19 18:59 06:59 18:59 Intake Total 1240 1030 Output Total 2186 017 3726 Balance -410 -475 -1170 Weight 118.6 kg Intake: Oral 1240 1030 Output: Urine 2315 201 6242 Other: Voiding Method Urinal Urinal Urinal # Voids 1 1 1 - Exam PHYSICAL EXAM: VITAL SIGNS: As above GENERAL: Sitting up in chair, no acute distress HEENT: Conjunctivae normal. eyes normal. Oral mucosa moist NECK: No JVD. No thyroid enlargement. No LNs CARDIOVASCULAR: S1, S2 regular.Systolic murmur. RESPIRATION: Breath sounds diminished in the bases. No rhonchi or crackles. Minimal expiratory wheeze of left lung ABDOMEN: Soft, nontender . No guarding. no masses palpable. No ascites, No hepatosplenomegaly.Bowel sounds heard. LEGS: Decreased bilateral lower extremity edema, stasis dermatitis, bilateral extremities Ubaldo wrapped PSYCHIATRY: Alert and oriented X3, mood and affect normal. NERVOUS SYSTEM: Cranial N 2-12 grossly normal. Moves all 4 limbs. No focal deficits. Strength and sensation grossly intact.. Skin no rash - Labs CBC & Chem 7: 10/15/19 06:31 10/15/19 06:31 Labs: Abnormal Lab Results - Last 24 Hours (Table) 10/14/19 10/14/19 10/15/19 Range/Units 16:36 19:59 00:16 RBC (4.30-5.90) m/uL Hgb (13.0-17.5) gm/dL Hct (39.0-53.0) % MCHC (31.0-37.0) g/dL Plt Count (150-450) k/uL Neutrophils # (1.3-7.7) k/uL Lymphocytes # (1.0-4.8) k/uL Chloride (98-107) mmol/L Carbon Dioxide (22-30) mmol/L BUN (9-20) mg/dL Creatinine (0.66-1.25) mg/dL Glucose (74-99) mg/dL POC Glucose (mg/dL) 318 H 301 H 352 H (75-99) mg/dL Calcium (8.4-10.2) mg/dL 10/15/19 10/15/19 10/15/19 Range/Units 06:06 06:31 06:31 RBC 3.83 L (4.30-5.90) m/uL Hgb 10.5 L (13.0-17.5) gm/dL Hct 35.1 L (39.0-53.0) % MCHC 29.9 L (31.0-37.0) g/dL Plt Count 64 L (150-450) k/uL Neutrophils # 8.0 H (1.3-7.7) k/uL Lymphocytes # 0.2 L (1.0-4.8) k/uL Chloride 89 L (98-107) mmol/L Carbon Dioxide 38 H (22-30) mmol/L BUN 45 H (9-20) mg/dL Creatinine 1.58 H (0.66-1.25) mg/dL Glucose 286 H (74-99) mg/dL POC Glucose (mg/dL) 300 H (75-99) mg/dL Calcium 8.3 L (8.4-10.2) mg/dL 10/15/19 Range/Units 11:39 RBC (4.30-5.90) m/uL Hgb (13.0-17.5) gm/dL Hct (39.0-53.0) % MCHC (31.0-37.0) g/dL Plt Count (150-450) k/uL Neutrophils # (1.3-7.7) k/uL Lymphocytes # (1.0-4.8) k/uL Chloride (98-107) mmol/L Carbon Dioxide (22-30) mmol/L BUN (9-20) mg/dL Creatinine (0.66-1.25) mg/dL Glucose (74-99) mg/dL POC Glucose (mg/dL) 364 H (75-99) mg/dL Calcium (8.4-10.2) mg/dL Microbiology - Last 24 Hours (Table) 10/12/19 16:40 Blood Culture - Preliminary Blood No Growth after 48 hours Assessment and Plan Assessment: Acute hypoxic, hypercapnic respiratory failure, multifactorial secondary to both acute COPD and diastolic CHF exacerbations Acute COPD exacerbation Acute diastolic congestive heart failure exacerbation End stage lung disease, pulmonary fibrosis Bilateral lower extremity swelling Chronic kidney disease stage II Insulin-dependent diabetes mellitus, hyperglycemia Chronic thrombocytopenia Chronic atrial fibrillation recurrent falls Hypomagnesemia Hyperbilirubinemia Chronic anemia coronary artery disease status post CABG in the past Hypertension Hyperlipidemia Bilateral lower extremity neuropathy Left knee arthroplasty Former smoker Obesity with BMI of 35.5 Plan: Continue on current medication regime ,monitoring and symptomatic treat ment. Hyperglycemia, increase Levemir to 35 units daily at bedtime .close monitoring of Accu-Cheks .Maintain nebulized bronchodilators, steroids, diuretics. Diuretics converted to oral. Follow closely with both cardiology and pulmonary. Discharge planning in progress pending cardiology and pulmonary clearance, possibly in the next 24-48 hours. The impression and plan of care has been dictated as directed. : I performed a history and examination of this patient, discussed the same with the dictator. I agree with the dictator's note ,documented as a scribe. Any additional findings or plans will be noted.
[2019-10-15 16:39] LABS: Glucose,Whole Blood 470 mg/dL (75-99)
[2019-10-15 20:39] LABS: Glucose,Whole Blood >600 mg/dL (75-99)
[2019-10-15 20:39] LABS: Glucose,Whole Blood >600 mg/dL (75-99)
[2019-10-15] MEDS ORDERED: INSULIN DETEMIR (LEVEMIR) 100 UNIT/ML SYR SQ SCH (21:00)
[2019-10-15] MEDS: ATORVASTATIN 20 MG TAB PO SCH (22:06)
[2019-10-15] MEDS: TAMSULOSIN 0.4 MG CAP.ER.24H PO SCH (22:06)
[2019-10-16] MEDS: methylPREDNISolone SOD SUCCI 125 MG/2 ML VIAL IV SCH (06:19)
[2019-10-16 06:51] LABS: Basophils % (A) 0 %; Eosinophils % (A) 0 %; HCT 36.4 % (39.0-53.0); HGB 11.2 gm/dL (13.0-17.5); Hypochromasia Marked; Lymphocytes # (A) 0.2 k/uL (1.0-4.8); Lymphocytes % (A) 3 %; MCH 28.3 pg (25.0-35.0); MCHC 30.8 g/dL (31.0-37.0); MCV 92.1 fL (80.0-100.0); Mean Platelet Volume 9.5; Monocytes # (A) 0.3 k/uL (0-1.0); Monocytes % (A) 4 %; Neutrophils # (A) 7.1 k/uL (1.3-7.7); Neutrophils % (A) 92 %; RBC 3.95 m/uL (4.30-5.90); RDW 15.2 % (11.5-15.5); WBC 7.8 k/uL (3.8-10.6)
[2019-10-16 06:55] LABS: Platelet Count 62 k/uL (150-450)
[2019-10-16] MEDS: FORMOTEROL FUMARATE 20 MCG/2 ML NEBU INHALATION SCH (07:00)
[2019-10-16] MEDS: IPRATROPIUM-ALBUTEROL 3 ML NEB INHALATION SCH ×2 (07:00→11:06)
[2019-10-16] MEDS: BUDESONIDE 1 MG/2 ML NEBU INHALATION SCH (07:00)
[2019-10-16 07:04] LABS: Calcium 7.9 mg/dL (8.4-10.2); Potassium 4.2 mmol/L (3.5-5.1)
[2019-10-16 07:13] LABS: Glucose,Whole Blood 279 mg/dL (75-99)
[2019-10-16] MEDS: guaiFENesin SYRUP 100MG/5ML 200 MG/10 ML CUP PO SCH (07:50)
[2019-10-16] MEDS: CEPHALEXIN 500 MG CAP PO SCH (07:50)
[2019-10-16] MEDS: PREGABALIN 75 MG CAP PO SCH (07:50)
[2019-10-16] MEDS: MONTELUKAST 10 MG TAB PO SCH (07:50)
[2019-10-16] MEDS: ASPIRIN 81 MG PO SCH (07:50)
[2019-10-16] MEDS: ALLOPURINOL 100 MG TAB PO SCH (07:51)
[2019-10-16] MEDS: METOPROLOL TARTRATE 25 MG TAB PO SCH (07:51)
[2019-10-16] MEDS: INSULIN ASPART (NovoLOG) 100 UNIT/ML VIAL SQ SCH ×4 (07:51→12:35)
[2019-10-16] MEDS ORDERED: FUROSEMIDE 40 MG TAB PO SCH (09:00)
[2019-10-16 09:28] VITALS: RESP 16
[2019-10-16 12:32] LABS: Glucose,Whole Blood 226 mg/dL (75-99)
[2019-10-16 13:05] VITALS: BP 125/62; PULSE 86; TEMP 97.1
--- NOTE | 2019-10-16 14:29 | P.PN ---
Subjective Progress Note Date: 10/16/19 Principal diagnosis: Shortness of breath On 10/15/2019 patient seen in follow-up on selective care unit. He is awake and alert, is currently on 11 L of oxygen the pulse ox of 9 8%, he is diuresing, remains her, lower extremity edema is improving, patient normally wears 10 L of oxygen at home. Based on his pulse ox we dropped his FiO2 down to 6 L however patient quickly desaturated and his pulse ox was 84% on 6 L, subsequently his FiO2 was increased back up to 9 L, we'll continue checking his pulse ox, clinically patient is stable, improving, he is in -885 ML fluid balance over the last 24 hours. Today's labs have been reviewed, no leukocytosis, renal profile slightly improved On 10/16/2019 patient seen in follow-up on selective care unit. He is calm and comfortable, he sitting up in chair, he is on 10 L of oxygen which is what he wears at home on the regular basis. He states his breathing has significantly improved since admission, patient has diuresed. He is in -2.8 L over the last 24 hours, lower extremity edema has significantly improved, vital signs are stable. Patient is afebrile, no complaints of chest pain. No acute events overnight. Today's labs have been reviewed, showing white blood cell count of 7.8, hemoglobin of 11.2, sodium of 137, potassium is 4.2, chloride is 87, CO2 is 42, BUN is 45 creatinine is 1.19. Patient has been transitioned to oral Lasix. He is anticipated to be discharged home today Objective - Vital Signs Vital signs: Vital Signs Temp 97.1 F L 10/16/19 12:00 Pulse 86 10/16/19 12:00 Resp 16 10/16/19 12:00 BP 125/62 10/16/19 12:00 Pulse Ox 99 10/16/19 12:00 Intake & Output 10/15/19 10/16/19 10/16/19 18:59 06:59 18:59 Intake Total 1270 240 420 Output Total 2500 1800 Balance -1230 -1560 420 Weight 118.1 kg Intake: Oral 1270 240 420 Output: Urine 2500 1800 Other: Voiding Method Urinal Urinal Urinal # Voids 1 1 - Exam GENERAL EXAM: Alert, very pleasant, 74-year-old white male, on 10 L of oxygen and the pulse ox of 99% comfortable in no apparent distress. HEAD: Normocephalic/atraumatic. EYES: Normal reaction of pupils, equal size. Conjunctiva pink, sclera white. NOSE: Clear with pink turbinates. THROAT: No erythema or exudates. NECK: No masses, no JVD, no thyroid enlargement, no adenopathy. CHEST: No chest wall deformity. Symmetrical expansion. LUNGS: Equal air entry with no crackles, wheeze, rhonchi or dullness. CVS: Regular rate and rhythm, normal S1 and S2, no gallops, no murmurs, no rubs ABDOMEN: Soft, nontender. No hepatosplenomegaly, normal bowel sounds, no guarding or rigidity. EXTREMITIES: No clubbing, 1+ edema, no cyanosis, 2+ pulses and upper and lower extremities. MUSCULOSKELETAL: Muscle strength and tone normal. SPINE: No scoliosis or deformity SKIN: No rashes CENTRAL NERVOUS SYSTEM: Alert and oriented -3. No focal deficits, tone is normal in all 4 extremities. PSYCHIATRIC: Alert and oriented -3. Appropriate affect. Intact judgment and insight. - Labs CBC & Chem 7: 10/16/19 05:31 10/16/19 05:31 Labs: Abnormal Lab Results - Last 24 Hours (Table) 10/15/19 10/15/19 10/15/19 Range/Units 16:37 20:36 20:37 RBC (4.30-5.90) m/uL Hgb (13.0-17.5) gm/dL Hct (39.0-53.0) % MCHC (31.0-37.0) g/dL Plt Count (150-450) k/uL Lymphocytes # (1.0-4.8) k/uL Chloride (98-107) mmol/L Carbon Dioxide (22-30) mmol/L BUN (9-20) mg/dL Glucose (74-99) mg/dL POC Glucose (mg/dL) 470 H >600 H >600 H (75-99) mg/dL Calcium (8.4-10.2) mg/dL 10/15/19 10/16/19 10/16/19 Range/Units 21:12 05:31 05:31 RBC 3.95 L (4.30-5.90) m/uL Hgb 11.2 L (13.0-17.5) gm/dL Hct 36.4 L (39.0-53.0) % MCHC 30.8 L (31.0-37.0) g/dL Plt Count 62 L (150-450) k/uL Lymphocytes # 0.2 L (1.0-4.8) k/uL Chloride 87 L (98-107) mmol/L Carbon Dioxide 42 H* (22-30) mmol/L BUN 45 H (9-20) mg/dL Glucose 636 H* 344 H (74-99) mg/dL POC Glucose (mg/dL) (75-99) mg/dL Calcium 7.9 L (8.4-10.2) mg/dL 10/16/19 10/16/19 Range/Units 07:11 12:30 RBC (4.30-5.90) m/uL Hgb (13.0-17.5) gm/dL Hct (39.0-53.0) % MCHC (31.0-37.0) g/dL Plt Count (150-450) k/uL Lymphocytes # (1.0-4.8) k/uL Chloride (98-107) mmol/L Carbon Dioxide (22-30) mmol/L BUN (9-20) mg/dL Glucose (74-99) mg/dL POC Glucose (mg/dL) 279 H 226 H (75-99) mg/dL Calcium (8.4-10.2) mg/dL Microbiology - Last 24 Hours (Table) 10/12/19 16:40 Blood Culture - Preliminary Blood No Growth after 72 hours Assessment and Plan Plan: Assessment: #1. Severe COPD with underlying FEV1 of 19% on home oxygen at 10 L on the regular basis #2. Acute exacerbation of CHF diastolic dysfunction #3. Moderately severe pulmonary hypertension with right-sided pressures of 54.8 mmHg #4. Diabetes mellitus type 2 poorly controlled #5. Recurrent falls #6. Chronic anemia #7. History of coronary artery disease status post bypass grafting #8. Hypertension #9. Hyperlipidemia #10. Bilateral lower extremity neuropathy #11. Former smoker #12. Obesity Plan: Patient is doing well, no worsening dyspnea, he is been diuresed, breathing much easier, he has been transitioned to oral Lasix, from pulmonary perspective he stable for discharge home today on prednisone burst and taper and oral Lasix, he will need outpatient follow-up in the office with Dr. Diaz in 7-10 days I performed a history & physical examination of the patient and discussed their management with my nurse practitioner, Ama Vernon. I reviewed the nurse practitioner's note and agree with the documented findings and plan of care. Lung sounds are positive for diminished breath sounds throughout the lung henry. The findings and the impression was discussed with the patient. I attest to the documentation by the nurse practitioner. Time with Patient: Less than 30
--- NOTE | 2019-10-16 14:31 | PN ---
PROGRESS NOTE Mandeep is a 74-year-old gentleman with history of interstitial lung disease with chronic end-stage lung disease, coronary artery disease, dyslipidemia, diabetes was admitted to hospital with acute exacerbation of chronic underlying lung disease. He has known CAD and had prior PCI of the LAD, hypertension, dyslipidemia, has normal LV function and enlarged right ventricle. This morning he is feeling better, shortness of breath has improved. He is eager to go home. PHYSICAL EXAM: Vital signs are stable. Chest exam reveals good air entry. The wheezing that we heard before has improved significantly. In fact, it is almost not heard. Heart exam reveals first and second heart sounds. No gallop. Exam of the extremities reveals mild edema. Peripheral pulses are palpable. LABS: Show a hemoglobin of 11.2, platelet count is 62. Potassium is 4.2. ASSESSMENT: Acute on chronic diastolic heart failure, COPD exacerbations secondary to pulmonary fibrosis, thrombocytopenia, CAD status post angioplasty. PLAN: I will continue with oral Lasix. The rest of his medications will be continued. Hopefully home later today or tomorrow. YUVAL / LÓPEZN: [id number] /
--- NOTE | 2019-10-16 15:03 | P.DS ---
Providers Date of admission: 10/12/19 17:36 Expected date of discharge: 10/16/19 Attending physician: Armand Montenegro Consults: 10/12/19 17:35 Consult Physician Routine Consulting Provider: Juan Diaz Consult Reason/Comments: COPD Do you want consulting provider notified?: Yes 10/13/19 12:28 Consult Physician Routine Consulting Provider: Jennifer Madison Consult Reason/Comments: LE swell/hx afib Do you want consulting provider notified?: Yes Primary care physician: Armand Montenegro Hospital Course: Final Diagnoses: Acute hypoxic, hypercapnic respiratory failure, multifactorial secondary to both acute COPD and diastolic CHF exacerbations Acute COPD exacerbation Acute diastolic congestive heart failure exacerbation End stage lung disease, pulmonary fibrosis Bilateral lower extremity swelling Chronic kidney disease stage II Insulin-dependent diabetes mellitus, hyperglycemia Chronic thrombocytopenia Chronic atrial fibrillation recurrent falls Hypomagnesemia Hyperbilirubinemia Chronic anemia coronary artery disease status post CABG in the past Hypertension Hyperlipidemia Bilateral lower extremity neuropathy Left knee arthroplasty Former smoker Obesity with BMI of 35.5 Hospital course:This is 74-year-old gentleman admitted with severe COPD exacerbation, acute CHF exacerbation with severe pulmonary hypertension and multiple other medical issues. Diuresing well on IV diuretics with 24-hour I&O reflecting a negative fluid balance, decreasing bilateral lower extremity edema. Creatinine improving, trending down to 1.58. FiO2 weaned down to 9 L,( baseline 10 L). Significant clinical improvement. Cleared by both cardiology and pulmonary for discharge. Patient is being discharged home in stable condition with guarded prognosis. The impression and plan of care has been dictated as directed. : I performed a history and examination of this patient, discussed the same with the dictator. I agree with the dictator's note ,documented as a scribe. Any additional findings or plans will be noted. Patient Condition at Discharge: Stable Plan - Discharge Summary Discharge Rx Participant: Yes New Discharge Prescriptions: New Aspirin 81 mg PO DAILY chew Sodium Chloride 0.65% Nasal [Deep Sea (Saline)] 2 spray NASAL QID PRN spray PRN Reason: Congestion Cephalexin [Keflex] 500 mg PO BID #8 cap Furosemide [Lasix] 40 mg PO DAILY #30 tab predniSONE 10 mg PO DIRECTED #30 tab Continue Allopurinol [Zyloprim] 100 mg PO DAILY Tiotropium Anselmo [Spiriva] 1 cap INHALATION RT-DAILY metFORMIN HCL 1,000 mg PO BID Budesonide [Pulmicort] 0.5 mg INHALATION RT-BID Tamsulosin [Flomax] 0.4 mg PO DAILY Arformoterol Tartrate [Brovana] 15 mcg INHALATION RT-BID Pregabalin [Lyrica] 150 mg PO BID Albuterol Sulfate [Proair Hfa] 2 puff INHALATION RT-BID PRN PRN Reason: Shortness Of Breath guaiFENesin 200 mg PO DAILY Montelukast Sodium [Singulair] 10 mg PO DAILY Insulin Regular, Human [NovoLIN R] See Protocol SQ TID PRN PRN Reason: BLOOD SUGAR >150 Rosuvastatin [Crestor] 10 mg PO DAILY Metoprolol Tartrate [Lopressor] 25 mg PO BID Changed Insulin Glargine [Lantus] 20 unit SQ HS #0 Discharge Medication List Allopurinol [Zyloprim] 100 mg PO DAILY 05/19/15 [History] Budesonide [Pulmicort] 0.5 mg INHALATION RT-BID 05/19/15 [History] Tamsulosin [Flomax] 0.4 mg PO DAILY 05/19/15 [History] Tiotropium Anselmo [Spiriva] 1 cap INHALATION RT-DAILY 05/19/15 [History] metFORMIN HCL 1,000 mg PO BID 05/19/15 [History] Arformoterol Tartrate [Brovana] 15 mcg INHALATION RT-BID 03/24/18 [History] Albuterol Sulfate [Proair Hfa] 2 puff INHALATION RT-BID PRN 10/12/19 [History] Insulin Regular, Human [NovoLIN R] See Protocol SQ TID PRN 10/12/19 [History] Metoprolol Tartrate [Lopressor] 25 mg PO BID 10/12/19 [History] Montelukast Sodium [Singulair] 10 mg PO DAILY 10/12/19 [History] Pregabalin [Lyrica] 150 mg PO BID 10/12/19 [History] Rosuvastatin [Crestor] 10 mg PO DAILY 10/12/19 [History] guaiFENesin 200 mg PO DAILY 10/12/19 [History] Aspirin 81 mg PO DAILY chew 10/16/19 [Rx] Cephalexin [Keflex] 500 mg PO BID #8 cap 10/16/19 [Rx] Furosemide [Lasix] 40 mg PO DAILY #30 tab 10/16/19 [Rx] Insulin Glargine [Lantus] 20 unit SQ HS #0 10/16/19 [Rx] Sodium Chloride 0.65% Nasal [Deep Sea (Saline)] 2 spray NASAL QID PRN spray 10/16/19 [Rx] predniSONE 10 mg PO DIRECTED #30 tab 10/16/19 [Rx] Follow up Appointment(s)/Referral(s): Armand Montenegro DO [Primary Care Provider] - 10/23/19 1:20 pm [facility], [NON-STAFF] - 1-2 Days Wilber Hammer MD [STAFF PHYSICIAN] - 11/02/19 9:45 am Juan Diaz MD [STAFF PHYSICIAN] - 10/24/19 2:15 pm Ambulatory/Diagnostic Orders: Complete Blood Count w/diff [LAB.AMB] Time Frame: 3 Days, Location: None Selected Patient Instructions/Handouts: Heart Failure (DC), COPD (Chronic Obstructive Pulmonary Disease) (DC) Activity/Diet/Wound Care/Special Instructions: Diet: Consistent carb Discharge Disposition: HOME WITH HOME HEALTH SERVICES
[2019-10-16] MEDS ORDERED: methylPREDNISolone SOD SUCCI 40 MG/ML 1 ML VIAL IV SCH (16:00)
== END 2019-10-16 15:15 | disposition home health service (06) | DRG 291 ==
LOC: EC 16:06 → 3SCARD 17:36
PROVIDERS: ADMIT Family Medicine; ATTEND Family Medicine
DX: I13.0 Hypertensive heart and chronic kidney disease with heart failure and stage 1 through stage 4 chronic kidney disease, or unspecified chronic kidney disease (principal); I50.33 Acute on chronic diastolic (congestive) heart failure; J96.22 Acute and chronic respiratory failure with hypercapnia; J96.21 Acute and chronic respiratory failure with hypoxia; J44.1 Chronic obstructive pulmonary disease with (acute) exacerbation; N17.9 Acute kidney failure, unspecified; I48.20 Chronic atrial fibrillation, unspecified; I25.10 Atherosclerotic heart disease of native coronary artery without angina pectoris; Z96.653 Presence of artificial knee joint, bilateral; E11.22 Type 2 diabetes mellitus with diabetic chronic kidney disease; E11.41 Type 2 diabetes mellitus with diabetic mononeuropathy; I44.0 Atrioventricular block, first degree; I45.10 Unspecified right bundle-branch block; G89.29 Other chronic pain; M54.9 Dorsalgia, unspecified; D69.6 Thrombocytopenia, unspecified; I35.0 Nonrheumatic aortic (valve) stenosis; D64.9 Anemia, unspecified; E11.65 Type 2 diabetes mellitus with hyperglycemia; I27.81 Cor pulmonale (chronic); G57.93 Unspecified mononeuropathy of bilateral lower limbs; M19.90 Unspecified osteoarthritis, unspecified site; N40.0 Benign prostatic hyperplasia without lower urinary tract symptoms; R29.6 Repeated falls; E78.5 Hyperlipidemia, unspecified; E66.9 Obesity, unspecified; E83.42 Hypomagnesemia; J84.10 Pulmonary fibrosis, unspecified; N18.3 Chronic kidney disease, stage 3 (moderate); F41.9 Anxiety disorder, unspecified; I27.29 Other secondary pulmonary hypertension; Z20.828 Contact with and (suspected) exposure to other viral communicable diseases; Z99.81 Dependence on supplemental oxygen; Z79.899 Other long term (current) drug therapy; Z79.82 Long term (current) use of aspirin; Z79.51 Long term (current) use of inhaled steroids; Z79.4 Long term (current) use of insulin; Z91.09 Other allergy status, other than to drugs and biological substances; Z85.828 Personal history of other malignant neoplasm of skin; Z82.49 Family history of ischemic heart disease and other diseases of the circulatory system; Z95.5 Presence of coronary angioplasty implant and graft; Z98.890 Other specified postprocedural states; Z87.01 Personal history of pneumonia (recurrent); Z87.891 Personal history of nicotine dependence; Z83.49 Family history of other endocrine, nutritional and metabolic diseases; Z84.1 Family history of disorders of kidney and ureter; Z68.35 Body mass index [BMI] 35.0-35.9, adult; Z91.81 History of falling
CPT/HCPCS: 36415; 71045; 80048; 80053; 80061; 82947; 83605; 83735; 83880; 84484; 85025; 85610; 85730; 87040; 87635; 93306; 93970; 94640; 94760; 96365; 96375; 99291

== ENCOUNTER 2019-10-29 20:18 | Inpatient (IN) | payer OTHER, MEDICARE, BC ==
[2019-10-29 21:31] LABS: Albumin 3.4 g/dL (3.5-5.0); Calcium 8.8 mg/dL (8.4-10.2); Total Bilirubin 0.6 mg/dL (0.2-1.3); Total Protein 6.4 g/dL (6.3-8.2)
[2019-10-29 21:32] LABS: D-Dimer 0.44 mg/L FEU (<0.60); Partial Thromboplastin Time 24.4 sec (22.0-30.0); Prothrombin Time 10.2 sec (9.0-12.0)
[2019-10-29 21:46] LABS: Basophils % (A) 0 %; Eosinophils # (A) 0.2 k/uL (0-0.7); Eosinophils % (A) 2 %; HCT 37.4 % (39.0-53.0); HGB 11.7 gm/dL (13.0-17.5); Hypochromasia Moderate; Lymphocytes # (A) 1.2 k/uL (1.0-4.8); Lymphocytes % (A) 14 %; MCH 28.5 pg (25.0-35.0); MCHC 31.4 g/dL (31.0-37.0); MCV 90.7 fL (80.0-100.0); Mean Platelet Volume 7.8; Monocytes # (A) 0.4 k/uL (0-1.0); Monocytes % (A) 5 %; Neutrophils # (A) 6.4 k/uL (1.3-7.7); Neutrophils % (A) 77 %; Platelet Count 103 k/uL (150-450); RBC 4.13 m/uL (4.30-5.90); RDW 15.6 % (11.5-15.5); WBC 8.3 k/uL (3.8-10.6)
--- NOTE | 2019-10-29 21:59 | XR ---
EXAMINATION TYPE: XR chest 2V DATE OF EXAM: 10/29/2019 COMPARISON: 10/24/2019 HISTORY: COPD TECHNIQUE: Single view FINDINGS: There is some coarsening of the lung markings. Heart is enlarged. There is no pleural effus ion. There are no hilar masses. Bony thorax is intact. IMPRESSION: Interstitial fibrotic changes. No heart failure seen. Mild cardiomegaly. No significant c hange compared to last exam.
[2019-10-29] MEDS ORDERED: SODIUM CHLORIDE 0.9% 1,000 ML IV ONE (22:10)
--- NOTE | 2019-10-29 22:28 | CT ---
EXAMINATION TYPE: CT chest angio for PE DATE OF EXAM: 10/29/2019 COMPARISON: 05/08/2017 HISTORY: Short of breath. Chest pain. CT DLP: mGycm Automated exposure control for dose reduction was used. CONTRAST: Performed , patient injected with mL of . The contrast was Isovue 100 mL. FINDINGS: There is pulmonary emphysema. There is reticular interstitial density in both lungs. There is poorly marginated 1 cm stellate infiltrate right upper lobe at the lung apex. This is not significantly gongora ged and consistent with scarring. There is irregular 2 cm infiltrate posterior left lower lobe that i s new compared to old exam. There is no pleural effusion. Heart size is normal. There are no hilar ma sses. There is no mediastinal adenopathy. Thoracic aorta is atheromatous. There is normal contrast opacification of the pulmonary arteries. There are no filling defects. There is some mild interstitial infiltrate and atelectasis at the left posterior lung base. The bony thora x is intact. Upper abdominal soft tissues are intact. IMPRESSION: No evidence of pulmonary embolism. There is clearing of the pericardial effusion compared to old exam. There is a new irregular 2 cm inf iltrate left lower lobe compared to old exam. The appearance is nonspecific and follow-up is recommen ded. Pulmonary interstitial fibrotic changes. Pulmonary emphysema.
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
[2019-10-29] MEDS ORDERED: cefTRIAXone IN SWFI 1,000 MG/10 ML SYRINGE IVP STA (23:49)
[2019-10-29] MEDS ORDERED: methylPREDNISolone SOD SUCCI 125 MG/2 ML VIAL IV STA (23:49)
[2019-10-30] MEDS ORDERED: PNEUMONIA PROTOCOL UTILIZED 1 EACH MISC PO PRN (00:06)
[2019-10-30] MEDS: methylPREDNISolone SOD SUCCI 125 MG/2 ML VIAL IV SCH ×4 (06:32→23:08)
[2019-10-30] MEDS: AZITHROMYCIN 500 MG TAB PO SCH (08:34)
[2019-10-30] MEDS: ASPIRIN 81 MG PO SCH (08:34)
[2019-10-30] MEDS: ALLOPURINOL 100 MG TAB PO SCH (08:34)
[2019-10-30] MEDS: FORMOTEROL FUMARATE 20 MCG/2 ML NEBU INHALATION SCH ×2 (08:48→20:10)
[2019-10-30] MEDS: BUDESONIDE 0.5 MG/2 ML NEBU INHALATION SCH ×2 (08:48→20:10)
[2019-10-30] MEDS: IPRATROPIUM-ALBUTEROL 3 ML NEB INHALATION PRN ×2 (08:48→12:02)
[2019-10-30] MEDS ORDERED: ALPRAZolam 0.5 MG TAB PO PRN (15:14)
[2019-10-30] MEDS ORDERED: FUROSEMIDE 40 MG TAB PO PRN (15:14)
[2019-10-30] MEDS: SODIUM CHLORIDE 0.9% 1,000 ML IV SCH (15:26)
[2019-10-30] MEDS: IPRATROPIUM-ALBUTEROL 3 ML NEB INHALATION SCH ×2 (15:57→20:10)
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
[2019-10-30 18:03] LABS: Glucose,Whole Blood 556 mg/dL (75-99)
[2019-10-30] MEDS: PANTOPRAZOLE 40 MG/10 ML VIAL IVP SCH (18:25)
[2019-10-30] MEDS: MONTELUKAST 10 MG TAB PO SCH (18:25)
[2019-10-30] MEDS: INSULIN ASPART (NovoLOG) 100 UNIT/ML VIAL SQ SCH ×2 (18:25→21:20)
[2019-10-30 19:28] LABS: Glucose,Whole Blood 546 mg/dL (75-99)
[2019-10-30 20:22] LABS: Glucose,Whole Blood 581 mg/dL (75-99)
[2019-10-30] MEDS ORDERED: INSULIN DETEMIR (LEVEMIR) 100 UNIT/ML SYR SQ SCH (21:00)
[2019-10-30] MEDS: ATORVASTATIN 20 MG TAB PO SCH (21:19)
[2019-10-30] MEDS: LORATADINE 10 MG TAB PO SCH (21:19)
[2019-10-30] MEDS: metFORMIN 500 MG TAB PO SCH (21:19)
[2019-10-30] MEDS: PREGABALIN 75 MG CAP PO SCH (21:20)
[2019-10-30] MEDS: TAMSULOSIN 0.4 MG CAP.ER.24H PO SCH (21:20)
[2019-10-30] MEDS: METOPROLOL TARTRATE 25 MG TAB PO SCH (21:20)
[2019-10-30 21:30] LABS: Glucose,Whole Blood 543 mg/dL (75-99)
[2019-10-31 05:41] LABS: Glucose,Whole Blood 253 mg/dL (75-99)
[2019-10-31] MEDS: INSULIN ASPART (NovoLOG) 100 UNIT/ML VIAL SQ SCH ×3 (06:27→20:31)
[2019-10-31] MEDS: SODIUM CHLORIDE 0.9% 1,000 ML IV SCH (06:28)
[2019-10-31] MEDS: methylPREDNISolone SOD SUCCI 125 MG/2 ML VIAL IV SCH ×2 (06:28→12:19)
[2019-10-31] MEDS: BUDESONIDE 0.5 MG/2 ML NEBU INHALATION SCH (07:09)
[2019-10-31] MEDS: FORMOTEROL FUMARATE 20 MCG/2 ML NEBU INHALATION SCH ×2 (07:09→20:37)
[2019-10-31] MEDS: IPRATROPIUM-ALBUTEROL 3 ML NEB INHALATION SCH ×4 (07:09→20:37)
--- NOTE | 2019-10-31 07:10 | XR ---
EXAMINATION TYPE: XR chest 1V portable DATE OF EXAM: 10/31/2019 CLINICAL HISTORY: Difficulty breathing and pneumonia progress study. TECHNIQUE: Single AP portable frontal view of the chest is obtained. COMPARISON: Chest x-ray and CTA chest from 2 days earlier. FINDINGS: There is chronic emphysematous and parenchymal changes with some new patchy left basilar o pacity. Cardiomegaly with atherosclerotic thoracic aorta is redemonstrated. Degenerative change bilat eral shoulders again seen. Stimulator device lower thoracic spinal canal noted. Stable right mid lung linear scarring. IMPRESSION: Cardiomegaly and chronic emphysematous and parenchymal fibrotic changes with new patchy l eft basilar atelectasis and/or infiltrate felt present.
[2019-10-31] MEDS: PREGABALIN 75 MG CAP PO SCH ×2 (09:50→20:29)
[2019-10-31] MEDS: METOPROLOL TARTRATE 25 MG TAB PO SCH ×2 (09:50→20:30)
[2019-10-31] MEDS: ALLOPURINOL 100 MG TAB PO SCH (09:50)
[2019-10-31] MEDS: ASPIRIN 81 MG PO SCH (09:50)
[2019-10-31] MEDS: FUROSEMIDE 40 MG TAB PO SCH (09:51)
[2019-10-31] MEDS: metFORMIN 500 MG TAB PO SCH ×2 (09:51→20:30)
[2019-10-31] MEDS: PANTOPRAZOLE 40 MG/10 ML VIAL IVP SCH (09:52)
[2019-10-31] MEDS: guaiFENesin SYRUP 100MG/5ML 200 MG/10 ML CUP PO SCH (09:52)
[2019-10-31] MEDS: AZITHROMYCIN 500 MG TAB PO SCH (09:52)
[2019-10-31] MEDS: MONTELUKAST 10 MG TAB PO SCH (09:52)
[2019-10-31 11:33] LABS: Glucose,Whole Blood 352 mg/dL (75-99)
[2019-10-31] MEDS ORDERED: INSULIN ASPART (NovoLOG) 100 UNIT/ML VIAL SQ ONE ×2 (11:46→18:00)
--- NOTE | 2019-10-31 15:32 | CONS ---
CONSULTATION PULMONARY/CRITICAL CARE CONSULTATION: DATE OF SERVICE: 10/31/2019 REASON FOR CONSULTATION: Weakness and shortness of breath. This is a 74-year-old male who I saw her recently back on October 12 in consultation for shortness of breath and fluid retention. At that time, I said that his shortness of breath was multifactorial in part related to underlying valley fever, CHF, and COPD exacerbation. The patient comes in again with complaints of weakness and shortness of breath. It has been going on for a couple days prior to admission. In addition, the patient states that he reports coughing. The cough is productive of bloody or bright red material. It apparently has been going on for a few days longer. He denies any fever or chills. There is no chest pain or chest discomfort. There is no nausea, vomiting or diarrhea. Denies any abdominal pain. He does have horrible lung disease. His FEV1 is apparently 19% of predicted. The patient has been evaluated in the past at [facility] for consideration of lung transplantation and was thought not to be a candidate because of the severity of his chronic lung disease. The patient uses oxygen at home 27/12 at 10 L/minute. He is currently on 10 L here in the hospital. The patient is very limited with any activity. This has not changed.. PAST MEDICAL HISTORY: Positive for asthma/COPD, pulmonary fibrosis, valley fever, CAD, heart failure, diabetes mellitus, hypertension, DJD, pneumonia, BPH, chronic hypoxemic respiratory failure, chronic back pain, neuropathy, lower extremity edema, left lower leg wound, skin cancer, and chronic anxiety. ALLERGIES: Include GRASS, POLLEN, MOLD, POLLEN EXTRACT and RAGWEED. FAMILY HISTORY: Positive for father who has previous bypass grafting and mother with a history of chronic renal failure requiring dialysis. Mother also had thyroid disease. SOCIAL HISTORY: Positive for previous heavy tobacco use. He smoked for nearly 60 years. Denies any illicit drug use. He does drink occasionally. SURGICAL HISTORY: Includes back surgery, heart catheterization with stent, bronchoscopy, bilateral total knee replacement, epidural neurostimulator, bilateral leg vein surgery, skin cancer removal, among other surgical procedures. MEDICATIONS: Reviewed. He is on Zyloprim, Pulmicort solution, Flomax, Spiriva, metformin, Brovana, ProAir HFA, insulin, metoprolol, Singulair, pregabalin, Crestor, guaifenesin, aspirin, Keflex, Lasix, Lantus insulin, Deep Sea saline rinse, and prednisone 10 mg a day. REVIEW OF SYSTEMS: CONSTITUTIONAL: Weakness. NEUROLOGIC: Negative. HEENT: Negative. CARDIOVASCULAR: Negative. PULMONARY: Shortness of breath, occasional cough, usually nonproductive. GI: Negative : Negative. RHEUMATOLOGIC: Negative. IMMUNOLOGIC: Negative. ENDOCRINOLOGIC: Negative. DERMATOLOGIC: Negative. Current vital signs are reviewed. Temperature is 97.8, heart rate 84, respiratory rate 20, blood pressure 162/81 mean 108 and 4 L saturation 94%. Appears in no acute distress. HEENT: Examination is grossly unremarkable. NECK: Supple, full range of motion. No adenopathy. Neck veins are flat. CARDIOVASCULAR: Examination reveals regular rhythm and rate. Heart sounds are distant. No distinct murmur. Heart rate about 84 beats per minute. LUNGS: A few scattered rhonchi. Some mild bibasilar crackles. Nothing really super impressive. Breath sounds equal bilaterally. Breath sounds are diminished throughout. ABDOMEN: Soft, bowel sounds are heard. EXTREMITIES: Reveal only minimal edema. No cyanosis or clubbing. SKIN: Without rash. NEUROLOGIC: Examination is brief but nonfocal. LABS: Reviewed. White count 8.3, hemoglobin 11.7, hematocrit 37.4, platelet count 103,000, PT, INR, PTT normal. , D-dimer normal. Sodium, potassium normal, chloride 94, CO2 is 40, anion gap is 4. BUN and creatinine 35 and 1.43. Lactic acid was initially 2.5 and it has come down to 2.3. The rest of his comprehensive metabolic profile looks good. Microbiology is showing negative blood cultures at this point. Chest x-ray shows some mild interstitial fibrotic changes. CT angiogram was done. It was negative for pulmonary embolism. Does appear to be some nonspecific interstitial changes particularly at the bases. Current medications are reviewed. ASSESSMENT: 1. Shortness of breath, multifactorial, in part related to underlying chronic obstructive pulmonary disease, pulmonary fibrosis, valley fever, and congestive heart failure. His presentation on this admission is very similar to his prior presentation earlier this month. 2. Probable cor pulmonale with pulmonary hypertension and right heart failure. 3. History of chronic hypoxemic respiratory failure, on home O2 at 10 L/minute, 24//365. 4. Obesity. 5. Stage III chronic kidney disease. 6. History of coronary artery disease. 7. History of congestive heart failure. 8. Diabetes mellitus with diabetic neuropathy. 9. History of hypertension. 10.Degenerative joint disease. 11.Benign prostatic hypertrophy. 12.Chronic back pain, status post ablation of the nerve stimulator. 13.Multiple other medical problems and comorbidities. PLAN: The patient's medications are reviewed. Will make sure he is on appropriate medications for COPD. That will include DuoNeb, Pulmicort, Perforomist, and Solu- Medrol. I do not believe he needs IV antibiotics but rather could get by with oral antibiotics. Additional recommendations and suggestions are forthcoming. Prognosis is guarded. MMODL / IJN: [id number] /
[2019-10-31 16:47] LABS: Glucose,Whole Blood 289 mg/dL (75-99)
[2019-10-31] MEDS ORDERED: Magnesium Replacement Protocol 1 EACH MISC MISCELLANE PRN (17:02)
--- NOTE | 2019-10-31 17:06 | P.PN ---
Subjective Progress Note Date: 10/31/19 This is a 74-year-old gentleman with medical history of severe COPDwears 10 L at home exacerbation, with diastolic dysfunction CHF, severe pulmonary hypertension and multiple other medical issues. Recently discharged for the same. Returned to the ER with complaints of worsening shortness of breath. ates his son turned off the air conditioning yesterday, with increased difficulty breathing, cough. Denies chest pain, palpitations. Productive bloody cough [address] Diaz discontinued his aspirin due to his coughing up blood. Chest x-ray reporting interstitial fibrotic changes, no h eart failure, mild cardiomegaly, no significant change compared to prior exam. Chest CTA reported no evidence of pulmonary embolism. There is reticular interstitial density in bilateral lungs, poorly marginated 1 cm infiltrate right upper lobe at the lung apex-not significantly changed and consistent with scarring, irregular 2 cm infiltrate posterior left lower lobe new compared to old exam, no mediastinal adenopathy, thoracic aorta artheromatous. Afebrile, WBC within normal limits, hemoglobin 11.7, platelets 103. CO2 40, BUN 35, creatinine 1.43. Lactic acid 2.3. Albumin 3.4. Troponin 0.034. IV antibiotics of Zithromax and Rocephin initiated. 10/31/2019 reports nonproductive cough, no further hemoptysis. Chest x-ray reporting cardiomegaly, chronic emphysematous and parenchymal fibrotic changes with 2 patchy left basilar atelectasis and/or infiltrate. Currently at baseline, maintaining O2 sats in the 90s on 2 L high flow nasal cannula. Hyperglycemic, on IV steroids. Evaluated by pulmonary with recommendations noted and appreciated. Objective - Vital Signs Vital signs: Vital Signs Temp 98.0 F 10/31/19 03:52 Pulse 82 10/31/19 07:35 Resp 18 10/31/19 03:52 BP 136/70 10/31/19 03:52 Pulse Ox 95 10/31/19 03:52 Intake & Output 10/30/19 10/31/19 10/31/19 18:59 06:59 18:59 Intake Total 540 225 Output Total 875 Balance -335 225 Weight 116.6 kg Intake: Oral 540 225 Output: Urine 875 Other: Voiding Method Urinal # Voids 1 # Bowel Movements 1 - Exam PHYSICAL EXAM: VITAL SIGNS: As above GENERAL: Sitting up in chair, no acute distress HEENT: Conjunctivae normal. eyes normal. Oral mucosa moist NECK: No JVD. No thyroid enlargement. No LNs CARDIOVASCULAR: S1, S2 regular.Systolic murmur. RESPIRATION: Breath sounds diminished in the bases. No rhonchi. Occasional Fine basilar crackles. ABDOMEN: Soft, nontender . No guarding. no masses palpable. No ascites, No hepatosplenomegaly.Bowel sounds heard. LEGS: Minimal bilateral lower extremity edema, stasis dermatitis, wearing stockings PSYCHIATRY: Alert and oriented X3, mood and affect normal. NERVOUS SYSTEM: Cranial N 2-12 grossly normal. Moves all 4 limbs. No focal deficits. Strength and sensation grossly intact.. Skin no rash - Labs CBC & Chem 7: 10/29/19 20:45 10/29/19 20:45 Labs: Abnormal Lab Results - Last 24 Hours (Table) 10/30/19 10/30/19 10/30/19 Range/Units 10:10 13:50 18:02 POC Glucose (mg/dL) 556 H (75-99) mg/dL Plasma Lactic Acid Dameon 3.1 H* 3.7 H* (0.7-2.0) mmol/L 10/30/19 10/30/19 10/30/19 Range/Units 18:40 19:18 20:18 POC Glucose (mg/dL) 546 H 581 H (75-99) mg/dL Plasma Lactic Acid Dameon 3.6 H* (0.7-2.0) mmol/L 10/30/19 10/30/19 10/31/19 Range/Units 21:16 23:02 03:56 POC Glucose (mg/dL) 543 H (75-99) mg/dL Plasma Lactic Acid Dameon 2.5 H* 2.1 H* (0.7-2.0) mmol/L 10/31/19 Range/Units 05:40 POC Glucose (mg/dL) 253 H (75-99) mg/dL Plasma Lactic Acid Dameon (0.7-2.0) mmol/L Microbiology - Last 24 Hours (Table) 10/30/19 00:57 Blood Culture - Preliminary Blood No Growth after 24 hours Assessment and Plan Assessment: Acute on chronic hypoxic, hypercapnic respiratory failure, multifactorial secondary to acute COPD exacerbation, pulmonary fibrosis, possible atypical pneumonia and CHF. Wears 2 L nasal cannula O2 at home. Hemoptysis 1 week, CT reporting unchanged 1 cm right upper lobe mass at the lung apex, new irregular 2 cm infiltrate posterior left lower lobe, PE ruled out Acute Diastolic congestive heart failure End stage lung disease, pulmonary fibrosis Pulmonary hypertension Acute on chronic renal failure, secondary to dehydration, in addition to diure tics. Chronic kidney disease stage III Insulin-dependent diabetes mellitus, hyperglycemia Chronic thrombocytopenia Chronic atrial fibrillation History of falls Hyperbilirubinemia Chronic anemia coronary artery disease status post CABG in the past,stents Valvuar Heart disease, aortic stenosis Hypertension Hyperlipidemia Bilateral lower extremity neuropathy Left knee arthroplasty Former smoker Obesity with BMI of 35.5 Plan: Continue current medication regime ,monitoring and symptomatic treatment. Aggressive pulmonary toileting with Antibiotics, nebulized bronchodilators, IV steroids. Lantus increased for steroid-induced hyperglycemia . Close monitoring of electrolytes, renal function with repeat labs ordered for a.m. follow closely with pulmonary. The impression and plan of care has been dictated as directed. : I performed a history and examination of this patient, discussed the same with the dictator. I agree with the dictator's note ,documented as a scribe. Any additional findings or plans will be noted.
[2019-10-31] MEDS ORDERED: methylPREDNISolone SOD SUCCI 125 MG/2 ML VIAL ONE (18:00)
[2019-10-31 20:14] LABS: Glucose,Whole Blood 287 mg/dL (75-99)
[2019-10-31] MEDS: TAMSULOSIN 0.4 MG CAP.ER.24H PO SCH (20:30)
[2019-10-31] MEDS: ATORVASTATIN 20 MG TAB PO SCH (20:30)
[2019-10-31] MEDS: LORATADINE 10 MG TAB PO SCH (20:30)
[2019-10-31] MEDS: BUDESONIDE 1 MG/2 ML NEBU INHALATION SCH (20:37)
[2019-10-31] MEDS ORDERED: INSULIN DETEMIR (LEVEMIR) 100 UNIT/ML SYR SQ SCH (21:00)
[2019-11-01 06:25] LABS: Glucose,Whole Blood 221 mg/dL (75-99)
[2019-11-01] MEDS: INSULIN ASPART (NovoLOG) 100 UNIT/ML VIAL SQ SCH ×5 (06:28→20:23)
[2019-11-01] MEDS: methylPREDNISolone SOD SUCCI 125 MG/2 ML VIAL IV SCH ×6 (06:28→23:05)
[2019-11-01 06:46] LABS: Basophils % (A) 0 %; Eosinophils % (A) 0 %; HCT 37.3 % (39.0-53.0); HGB 10.8 gm/dL (13.0-17.5); Hypochromasia Marked; Lymphocytes # (A) 0.3 k/uL (1.0-4.8); Lymphocytes % (A) 2 %; MCH 26.9 pg (25.0-35.0); MCHC 29.1 g/dL (31.0-37.0); MCV 92.7 fL (80.0-100.0); Mean Platelet Volume 8.7; Monocytes # (A) 0.3 k/uL (0-1.0); Monocytes % (A) 3 %; Neutrophils % (A) 94 %; RBC 4.02 m/uL (4.30-5.90); RDW 15.7 % (11.5-15.5); WBC 10.7 k/uL (3.8-10.6)
[2019-11-01 07:05] LABS: Calcium 8.6 mg/dL (8.4-10.2); Magnesium 1.8 mg/dL (1.6-2.3); Potassium 4.5 mmol/L (3.5-5.1)
[2019-11-01 08:04] LABS: Platelet Count 62 k/uL (150-450); Polychromasia Present; RBC Fragments Present
[2019-11-01 08:05] LABS: Anisocytosis (M) Present; Poikilocytosis (M) Present; Spherocytes Present
[2019-11-01] MEDS: IPRATROPIUM-ALBUTEROL 3 ML NEB INHALATION SCH ×4 (08:45→21:52)
[2019-11-01] MEDS: BUDESONIDE 1 MG/2 ML NEBU INHALATION SCH ×2 (08:45→21:52)
[2019-11-01] MEDS: FORMOTEROL FUMARATE 20 MCG/2 ML NEBU INHALATION SCH ×2 (08:45→21:52)
[2019-11-01] MEDS: METOPROLOL TARTRATE 25 MG TAB PO SCH ×2 (09:34→20:23)
[2019-11-01] MEDS: FUROSEMIDE 40 MG TAB PO SCH (09:34)
[2019-11-01] MEDS: PANTOPRAZOLE 40 MG/10 ML VIAL IVP SCH (09:35)
[2019-11-01] MEDS: PREGABALIN 75 MG CAP PO SCH ×2 (09:35→20:22)
[2019-11-01] MEDS: guaiFENesin SYRUP 100MG/5ML 200 MG/10 ML CUP PO SCH (09:35)
[2019-11-01] MEDS: ASPIRIN 81 MG PO SCH (09:35)
[2019-11-01] MEDS: ALLOPURINOL 100 MG TAB PO SCH (09:35)
[2019-11-01] MEDS: AZITHROMYCIN 500 MG TAB PO SCH (09:35)
[2019-11-01] MEDS: MONTELUKAST 10 MG TAB PO SCH (09:35)
[2019-11-01] MEDS: metFORMIN 500 MG TAB PO SCH ×2 (09:37→20:22)
[2019-11-01 11:49] LABS: Glucose,Whole Blood 374 mg/dL (75-99)
[2019-11-01] MEDS ORDERED: INSULIN ASPART (NovoLOG) 100 UNIT/ML VIAL SQ ONE (12:37)
--- NOTE | 2019-11-01 14:23 | P.PN ---
Subjective Progress Note Date: 11/01/19 Principal diagnosis: Shortness of breath, multifactorial On 10/24/2019 patient seen in follow-up on selective care unit, he sitting up in the recliner, in no acute distress, his breathing has improved, he remains on 2 L of high flow oxygen his pulse ox is 95-96%, of note patient normally wears 10 L of oxygen at home on a regular basis. Afebrile, hemodynamically stable. No evidence of pneumonia seen on CT chest. Patient remains on Zithromax for antibiotic coverage, breathing treatments, and IV steroids, he is improving. He stated last night he was able to provide a sputum sample, and does describe it is blood-tinged. Today's lab work has been reviewed, showing with, 10.7 claims is 10.8, electrolytes within normal limits, BUN of 43 and creatinine 1.16. Patient has had no fever or chills since admission. Objective - Vital Signs Vital signs: Vital Signs Temp 98.0 F 11/01/19 08:00 Pulse 88 11/01/19 12:04 Resp 18 11/01/19 12:00 BP 132/74 11/01/19 12:00 Pulse Ox 96 11/01/19 12:00 Intake & Output 10/31/19 11/01/19 11/01/19 18:59 06:59 18:59 Intake Total 225 450 480 Output Total 1000 800 Balance 225 -550 -320 Weight 119.1 kg Intake: Oral 225 450 480 Output: Urine 1000 800 Other: Voiding Method Urinal # Voids 1 - Constitutional General appearance: Present: average body habitus, cooperative, obese - EENT Eyes: Present: PERRLA ENT: Present: NA/AT, normal oropharynx - Neck Neck: Present: normal ROM Thyroid: bilateral: normal size - Cardiovascular Rhythm: regular Heart sounds: normal: S1, S2 - Peripheral edema leg Peripheral Edema: bilateral: None - Peripheral pulses dorsalis pedis Peripheral Pulses: bilateral: Normal - Gastrointestinal General gastrointestinal: Present: normal bowel sounds - Integumentary Integumentary: Present: normal turgor - Neurologic Neurologic: Present: CNII-XII intact - Musculoskeletal Musculoskeletal: Present: gait normal, generalized weakness - Psychiatric Psychiatric: Present: A&O x's 3, appropriate affect, intact judgment & insight - Labs CBC & Chem 7: 11/01/19 06:21 11/01/19 06:21 Labs: Abnormal Lab Results - Last 24 Hours (Table) 10/31/19 10/31/19 10/31/19 Range/Units 15:41 16:47 20:03 WBC (3.8-10.6) k/uL RBC (4.30-5.90) m/uL Hgb (13.0-17.5) gm/dL Hct (39.0-53.0) % MCHC (31.0-37.0) g/dL RDW (11.5-15.5) % Plt Count (150-450) k/uL Neutrophils # (1.3-7.7) k/uL Lymphocytes # (1.0-4.8) k/uL BUN (9-20) mg/dL Glucose (74-99) mg/dL POC Glucose (mg/dL) 289 H (75-99) mg/dL Plasma Lactic Acid Dameon 2.3 H* 3.0 H* (0.7-2.0) mmol/L 10/31/19 11/01/19 11/01/19 Range/Units 20:13 06:21 06:21 WBC 10.7 H (3.8-10.6) k/uL RBC 4.02 L (4.30-5.90) m/uL Hgb 10.8 L (13.0-17.5) gm/dL Hct 37.3 L (39.0-53.0) % MCHC 29.1 L (31.0-37.0) g/dL RDW 15.7 H (11.5-15.5) % Plt Count 62 L (150-450) k/uL Neutrophils # 10.0 H (1.3-7.7) k/uL Lymphocytes # 0.3 L (1.0-4.8) k/uL BUN 43 H (9-20) mg/dL Glucose 216 H (74-99) mg/dL POC Glucose (mg/dL) 287 H (75-99) mg/dL Plasma Lactic Acid Dameon (0.7-2.0) mmol/L 11/01/19 11/01/19 Range/Units 06:23 11:44 WBC (3.8-10.6) k/uL RBC (4.30-5.90) m/uL Hgb (13.0-17.5) gm/dL Hct (39.0-53.0) % MCHC (31.0-37.0) g/dL RDW (11.5-15.5) % Plt Count (150-450) k/uL Neutrophils # (1.3-7.7) k/uL Lymphocytes # (1.0-4.8) k/uL BUN (9-20) mg/dL Glucose (74-99) mg/dL POC Glucose (mg/dL) 221 H 374 H (75-99) mg/dL Plasma Lactic Acid Dameon (0.7-2.0) mmol/L Microbiology - Last 24 Hours (Table) 10/30/19 00:57 Blood Culture - Preliminary Blood No Growth after 48 hours Assessment and Plan Plan: Assessment: #1. Dyspnea, multifactorial, related to underlying chronic obstructive pulmonary disease, pulmonary fibrosis, daily fever and chronic congestive heart failure. CT chest did not show any definite evidence of pneumonia #2. Probable cor pulmonale with pulmonary hypertension and right heart failure #3. History of chronic hypoxemic respiratory failure patient usually wears 10 L of oxygen on a regular basis [id number] #4. Morbid obesity #5. Stage III chronic kidney disease #6. History of coronary artery disease #7. History of congestive heart failure #8. Diabetes mellitus with diabetic neuropathy #9. History of hypertension #10. Degenerative joint disease #11. Benign prostatic hypertrophy #12. Chronic back pain, status post ablation of the nerve stimulator 2. Multiple other medical problems and comorbidities Plan: Continue current medical treatment, continue current antibiotic coverage, will follow the sputum cultures, patient has had no fever or chills, he is breathing easier today, no acute events overnight, continue same dose of steroids, simone thing treatments, possible discharge in next 24 hours if she continues to be stable and improved I performed a history & physical examination of the patient and discussed their management with my nurse practitioner, Ama Vernon. I reviewed the nurse practitioner's note and agree with the documented findings and plan of care. Lung sounds are positive for crackles at bilateral bases. The findings and the impression was discussed with the patient. I attest to the documentation by the nurse practitioner. Time with Patient: Less than 30
--- NOTE | 2019-11-01 14:47 | P.PN ---
Subjective Progress Note Date: 11/01/19 This is a 74-year-old gentleman with medical history of severe COPDwears 10 L at home exacerbation, with diastolic dysfunction CHF, severe pulmonary hypertension and multiple other medical issues. Recently discharged for the same. Returned to the ER with complaints of worsening shortness of breath. ates his son turned off the air conditioning yesterday, with increased difficulty breathing, cough. Denies chest pain, palpitations. Productive bloody cough [address] Diaz discontinued his aspirin due to his coughing up blood. Chest x-ray reporting interstitial fibrotic changes, no h eart failure, mild cardiomegaly, no significant change compared to prior exam. Chest CTA reported no evidence of pulmonary embolism. There is reticular interstitial density in bilateral lungs, poorly marginated 1 cm infiltrate right upper lobe at the lung apex-not significantly changed and consistent with scarring, irregular 2 cm infiltrate posterior left lower lobe new compared to old exam, no mediastinal adenopathy, thoracic aorta artheromatous. Afebrile, WBC within normal limits, hemoglobin 11.7, platelets 103. CO2 40, BUN 35, creatinine 1.43. Lactic acid 2.3. Albumin 3.4. Troponin 0.034. IV antibiotics of Zithromax and Rocephin initiated. 10/31/2019 reports nonproductive cough, no further hemoptysis. Chest x-ray reporting cardiomegaly, chronic emphysematous and parenchymal fibrotic changes with 2 patchy left basilar atelectasis and/or infiltrate. Currently at baseline, maintaining O2 sats in the 90s on 2 L high flow nasal cannula. Hyperglycemic, on IV steroids. Evaluated by pulmonary with recommendations noted and appreciated. 11/01/2019 sitting up in chair, complaining of exertional shortness of breath, less wheezing present. Maintaining O2 sats in the 90s on 10 L nasal cannula. Maintained on Zithromax, nebulized bronchodilators, IV steroids .hyperglycemic.A febrile. Hemoglobin stable 10.8, creatinine improving, 1.16. Objective - Vital Signs Vital signs: Vital Signs Temp 98.0 F 11/01/19 08:00 Pulse 88 11/01/19 12:04 Resp 18 11/01/19 12:00 BP 132/74 11/01/19 12:00 Pulse Ox 96 11/01/19 12:00 Intake & Output 0511/01/19 11/01/19 18:59 06:59 18:59 Intake Total 225 450 480 Output Total 1000 800 Balance 225 -550 -320 Weight 119.1 kg Intake: Oral 225 450 480 Output: Urine 1000 800 Other: Voiding Method Urinal # Voids 1 - Exam PHYSICAL EXAM: VITAL SIGNS: As above GENERAL: Sitting up in chair, no acute distress HEENT: Conjunctivae normal. eyes normal. Oral mucosa moist NECK: No JVD. No thyroid enlargement. No LNs CARDIOVASCULAR: S1, S2 regular.Systolic murmur. RESPIRATION: Breath sounds diminished in the bases. No rhonchi. Occasional Fine basilar crackles. Less wheezing ABDOMEN: Soft, nontender . No guarding. no masses palpable. No ascites, No hepatosplenomegaly.Bowel sounds heard. LEGS: Minimal bilateral lower extremity edema, stasis dermatitis, wearing stockings PSYCHIATRY: Alert and oriented X3, mood and affect normal. NERVOUS SYSTEM: Cranial N 2-12 grossly normal. Moves all 4 limbs. No focal deficits. Strength and sensation grossly intact.. Skin no rash Microbiology 10/30/19 00:57 Blood Blood Culture - Preliminary No Growth after 48 hours - Labs CBC & Chem 7: 11/01/19 06:21 11/01/19 06:21 Labs: Abnormal Lab Results - Last 24 Hours (Table) 10/31/19 10/31/19 10/31/19 Range/Units 15:41 16:47 20:03 WBC (3.8-10.6) k/uL RBC (4.30-5.90) m/uL Hgb (13.0-17.5) gm/dL Hct (39.0-53.0) % MCHC (31.0-37.0) g/dL RDW (11.5-15.5) % Plt Count (150-450) k/uL Neutrophils # (1.3-7.7) k/uL Lymphocytes # (1.0-4.8) k/uL BUN (9-20) mg/dL Glucose (74-99) mg/dL POC Glucose (mg/dL) 289 H (75-99) mg/dL Plasma Lactic Acid Dameon 2.3 H* 3.0 H* (0.7-2.0) mmol/L 10/31/19 11/01/19 11/01/19 Range/Units 20:13 06:21 06:21 WBC 10.7 H (3.8-10.6) k/uL RBC 4.02 L (4.30-5.90) m/uL Hgb 10.8 L (13.0-17.5) gm/dL Hct 37.3 L (39.0-53.0) % MCHC 29.1 L (31.0-37.0) g/dL RDW 15.7 H (11.5-15.5) % Plt Count 62 L (150-450) k/uL Neutrophils # 10.0 H (1.3-7.7) k/uL Lymphocytes # 0.3 L (1.0-4.8) k/uL BUN 43 H (9-20) mg/dL Glucose 216 H (74-99) mg/dL POC Glucose (mg/dL) 287 H (75-99) mg/dL Plasma Lactic Acid Dameon (0.7-2.0) mmol/L 11/01/19 11/01/19 Range/Units 06:23 11:44 WBC (3.8-10.6) k/uL RBC (4.30-5.90) m/uL Hgb (13.0-17.5) gm/dL Hct (39.0-53.0) % MCHC (31.0-37.0) g/dL RDW (11.5-15.5) % Plt Count (150-450) k/uL Neutrophils # (1.3-7.7) k/uL Lymphocytes # (1.0-4.8) k/uL BUN (9-20) mg/dL Glucose (74-99) mg/dL POC Glucose (mg/dL) 221 H 374 H (75-99) mg/dL Plasma Lactic Acid Dameon (0.7-2.0) mmol/L Microbiology - Last 24 Hours (Table) 10/30/19 00:57 Blood Culture - Preliminary Blood No Growth after 48 hours Assessment and Plan Assessment: Acute on chronic hypoxic, hypercapnic respiratory failure, multifactorial secondary to acute COPD exacerbation, pulmonary fibrosis, possible atypical pneumonia and CHF. Wears 10 L nasal cannula O2 at home. Hemoptysis 1 week, CT reporting unchanged 1 cm right upper lobe mass at the lung apex, new irregular 2 cm infiltrate posterior left lower lobe, PE ruled out Acute Diastolic congestive heart failure End stage lung disease, pulmonary fibrosis Pulmonary hypertension Acute on chronic renal failure, secondary to dehydration, in addition to diuretics. Chronic kidney disease stage III Insulin-dependent diabetes mellitus, hyperglycemia Chronic thrombocytopenia Chronic atrial fibrillation History of falls Hyperbilirubinemia Chronic anemia coronary artery disease status post CABG in the past,stents Valvuar Heart disease, aortic stenosis Hypertension Hyperlipidemia Bilateral lower extremity neuropathy Left knee arthroplasty Former smoker Obesity with BMI of 35.5 Plan: Continue current medication regime ,monitoring and symptomatic treatment. Aggressive pulmonary toileting with Antibiotics, nebulized bronchodilators, IV steroids. Sputum culture pending. Lantus further increased for steroid-induced hyperglycemia . Close monitoring of electrolytes, renal function with repeat labs ordered for a.m. discharge planning in progress for tomorrow pending pulmonary clearance and final DC recommendations. The impression and plan of care has been dictated as directed. : I performed a history and examination of this patient, discussed the same with the dictator. I agree with the dictator's note ,documented as a scribe. Any additional findings or plans will be noted.
[2019-11-01 16:57] LABS: Glucose,Whole Blood 269 mg/dL (75-99)
[2019-11-01 19:58] LABS: Glucose,Whole Blood 281 mg/dL (75-99)
[2019-11-01] MEDS: LORATADINE 10 MG TAB PO SCH (20:23)
[2019-11-01] MEDS: ATORVASTATIN 20 MG TAB PO SCH (20:23)
[2019-11-01] MEDS: TAMSULOSIN 0.4 MG CAP.ER.24H PO SCH (20:23)
[2019-11-01] MEDS ORDERED: INSULIN DETEMIR (LEVEMIR) 100 UNIT/ML SYR SQ SCH (21:00)
[2019-11-02] MEDS: methylPREDNISolone SOD SUCCI 125 MG/2 ML VIAL IV SCH ×2 (05:55→12:15)
[2019-11-02 06:12] LABS: Glucose,Whole Blood 294 mg/dL (75-99)
[2019-11-02] MEDS: INSULIN ASPART (NovoLOG) 100 UNIT/ML VIAL SQ SCH ×2 (06:14→12:16)
[2019-11-02] MEDS: IPRATROPIUM-ALBUTEROL 3 ML NEB INHALATION SCH ×3 (07:50→15:55)
[2019-11-02] MEDS: FORMOTEROL FUMARATE 20 MCG/2 ML NEBU INHALATION SCH (07:50)
[2019-11-02] MEDS: BUDESONIDE 1 MG/2 ML NEBU INHALATION SCH (07:50)
[2019-11-02 08:20] LABS: Calcium 8.5 mg/dL (8.4-10.2); Potassium 4.5 mmol/L (3.5-5.1)
[2019-11-02 08:27] LABS: Basophils % (A) 0 %; Eosinophils % (A) 0 %; HCT 36.6 % (39.0-53.0); HGB 11.1 gm/dL (13.0-17.5); Hypochromasia Marked; Lymphocytes # (A) 0.2 k/uL (1.0-4.8); Lymphocytes % (A) 2 %; MCH 28.1 pg (25.0-35.0); MCHC 30.3 g/dL (31.0-37.0); MCV 92.9 fL (80.0-100.0); Mean Platelet Volume 8.7; Monocytes # (A) 0.7 k/uL (0-1.0); Monocytes % (A) 6 %; Neutrophils # (A) 9.5 k/uL (1.3-7.7); Neutrophils % (A) 91 %; RBC 3.94 m/uL (4.30-5.90); RDW 15.6 % (11.5-15.5); WBC 10.5 k/uL (3.8-10.6)
[2019-11-02 08:32] LABS: Platelet Count 70 k/uL (150-450)
[2019-11-02] MEDS: ALLOPURINOL 100 MG TAB PO SCH (09:42)
[2019-11-02] MEDS: AZITHROMYCIN 500 MG TAB PO SCH (09:42)
[2019-11-02] MEDS: metFORMIN 500 MG TAB PO SCH (09:42)
[2019-11-02] MEDS: FUROSEMIDE 40 MG TAB PO SCH (09:42)
[2019-11-02] MEDS: guaiFENesin SYRUP 100MG/5ML 200 MG/10 ML CUP PO SCH (09:42)
[2019-11-02] MEDS: ASPIRIN 81 MG PO SCH (09:42)
[2019-11-02] MEDS: PREGABALIN 75 MG CAP PO SCH (09:42)
[2019-11-02] MEDS: MONTELUKAST 10 MG TAB PO SCH (09:42)
[2019-11-02] MEDS: METOPROLOL TARTRATE 25 MG TAB PO SCH (09:42)
[2019-11-02] MEDS: PANTOPRAZOLE 40 MG/10 ML VIAL IVP SCH (09:43)
[2019-11-02 09:55] LABS: Poikilocytosis (M) Present
[2019-11-02 11:57] LABS: Glucose,Whole Blood 382 mg/dL (75-99)
[2019-11-02] MEDS ORDERED: INSULIN ASPART (NovoLOG) 100 UNIT/ML VIAL SQ ONE (12:25)
--- NOTE | 2019-11-02 15:04 | P.PN ---
Subjective Progress Note Date: 11/02/19 Principal diagnosis: Shortness of breath, multifactorial On 10/24/2019 patient seen in follow-up on selective care unit, he sitting up in the recliner, in no acute distress, his breathing has improved, he remains on 2 L of high flow oxygen his pulse ox is 95-96%, of note patient normally wears 10 L of oxygen at home on a regular basis. Afebrile, hemodynamically stable. No evidence of pneumonia seen on CT chest. Patient remains on Zithromax for antibiotic coverage, breathing treatments, and IV steroids, he is improving. He stated last night he was able to provide a sputum sample, and does describe it is blood-tinged. Today's lab work has been reviewed, showing with, 10.7 claims is 10.8, electrolytes within normal limits, BUN of 43 and creatinine 1.16. Patient has had no fever or chills since admission. On 11/02/2019 patient seen in follow-up on selective care unit, he sitting up in the recliner, currently on 10 L of oxygen, appears quite comfortable, he is p robably very close to his baseline, patient normally wears 10 L of oxygen on a regular basis, vital signs have been stable, no fever or chills, overall breathing has improved, he is been treated with empiric antibiotics, IV steroids and nebulized bronchodilators, he was started on some oral Lasix, patient does have mild pedal and ankle edema, he is in negative fluid balance, however today's labs show worsening of patient's renal profile. Electrolytes were within normal limits, BUN is 52 and creatinine is 1.44. The rest of the labs have been reviewed showing white blood cell count of 10.5, hemoglobin of 11.1, platelet count is 70, labs as mentioned above. Sputum culture showed no organisms. Blood cultures were negative. Patient states she would like to go home today. A pulmonary perspective patient can be considered for discharge home today. Objective - Vital Signs Vital signs: Vital Signs Temp 98.1 F 11/02/19 08:00 Pulse 82 11/02/19 12:00 Resp 22 11/02/19 12:00 BP 120/71 11/02/19 12:00 Pulse Ox 98 11/02/19 12:00 Intake & Output 11/01/19 11/02/19 11/02/19 18:59 06:59 18:59 Intake Total 720 354 Output Total 800 650 725 Balance -80 -650 -371 Weight 120.8 kg Intake: Oral 720 354 Output: Urine 800 650 725 Other: Voiding Method Urinal Urinal # Voids 1 # Bowel Movements 0 - Exam GENERAL EXAM: Alert, very pleasant, 74-year-old white male, on 2 L of oxygen, the pulse ox of 98% comfortable in no apparent distress. HEAD: Normocephalic/atraumatic. EYES: Normal reaction of pupils, equal size. Conjunctiva pink, sclera white. NOSE: Clear with pink turbinates. THROAT: No erythema or exudates. NECK: No masses, no JVD, no thyroid enlargement, no adenopathy. CHEST: No chest wall deformity. Symmetrical expansion. LUNGS: Equal air entry with no crackles, wheeze, rhonchi or dullness. CVS: Regular rate and rhythm, normal S1 and S2, no gallops, no murmurs, no rubs ABDOMEN: Soft, nontender. No hepatosplenomegaly, normal bowel sounds, no guarding or rigidity. EXTREMITIES: No clubbing, no edema, no cyanosis, 2+ pulses and upper and lower extremities. MUSCULOSKELETAL: Muscle strength and tone normal. SPINE: No scoliosis or deformity SKIN: No rashes CENTRAL NERVOUS SYSTEM: Alert and oriented -3. No focal deficits, tone is normal in all 4 extremities. PSYCHIATRIC: Alert and oriented -3. Appropriate affect. Intact judgment and insight. - Labs CBC & Chem 7: 11/02/19 06:49 11/02/19 06:49 Labs: Abnormal Lab Results - Last 24 Hours (Table) 11/01/19 11/01/19 11/02/19 Range/Units 16:52 19:57 06:10 RBC (4.30-5.90) m/uL Hgb (13.0-17.5) gm/dL Hct (39.0-53.0) % MCHC (31.0-37.0) g/dL RDW (11.5-15.5) % Plt Count (150-450) k/uL Neutrophils # (1.3-7.7) k/uL Lymphocytes # (1.0-4.8) k/uL BUN (9-20) mg/dL Creatinine (0.66-1.25) mg/dL Glucose (74-99) mg/dL POC Glucose (mg/dL) 269 H 281 H 294 H (75-99) mg/dL 11/02/19 11/02/19 11/02/19 Range/Units 06:49 06:49 11:56 RBC 3.94 L (4.30-5.90) m/uL Hgb 11.1 L (13.0-17.5) gm/dL Hct 36.6 L (39.0-53.0) % MCHC 30.3 L (31.0-37.0) g/dL RDW 15.6 H (11.5-15.5) % Plt Count 70 L (150-450) k/uL Neutrophils # 9.5 H (1.3-7.7) k/uL Lymphocytes # 0.2 L (1.0-4.8) k/uL BUN 52 H (9-20) mg/dL Creatinine 1.44 H (0.66-1.25) mg/dL Glucose 267 H (74-99) mg/dL POC Glucose (mg/dL) 382 H (75-99) mg/dL Microbiology - Last 24 Hours (Table) 10/30/19 00:57 Blood Culture - Preliminary Blood No Growth after 72 hours 10/31/19 22:25 Gram Stain - Preliminary Sputum Assessment and Plan Plan: Assessment: #1. Dyspnea, multifactorial, related to underlying chronic obstructive pulmonary disease, pulmonary fibrosis, valley fever and chronic congestive heart failure. CT chest did not show any definite evidence of pneumonia #2. Probable cor pulmonale with pulmonary hypertension and right heart failure #3. History of chronic hypoxemic respiratory failure patient usually wears 10 L of oxygen on a regular basis [id number] #4. Morbid obesity #5. Stage III chronic kidney disease #6. History of coronary artery disease #7. History of congestive heart failure #8. Diabetes mellitus with diabetic neuropathy #9. History of hypertension #10. Degenerative joint disease #11. Benign prostatic hypertrophy #12. Chronic back pain, status post ablation of the nerve stimulator 2. Multiple other medical problems and comorbidities Plan: Patient is doing well, improved since admission, breathing easier, his been treated with empiric antibiotics, IV steroids and bronchodilators, feeling better, he is close to his baseline, he normally wears 10 L of oxygen, he has chronic shortness of breath related to his severe COPD, and pulmonary fibrosis. Improved shortness of breath since admission, no acute events overnight, from pulmonary perspective he can reconsider for discharge home today, he can resume his normal home medications including Spiriva, Pulmicort, pro-air, Singulair, and he can complete outpatient course of oral prednisone taper and finish Zithromax course. His radiologic studies did not show any evidence of pneumonia. He will need outpatient follow-up with Dr. Diaz in the office in 7-10 days. I performed a history & physical examination of the patient and discussed their management with my nurse practitioner, Ama Vernon. I reviewed the nurse practitioner's note and agree with the documented findings and plan of care. Lung sounds are positive for crackles at bilateral bases. The findings and the impression was discussed with the patient. I attest to the documentation by the nurse practitioner. Time with Patient: Less than 30
--- NOTE | 2019-11-02 15:49 | P.DS ---
Providers Date of admission: 10/29/19 22:31 Expected date of discharge: 11/02/19 Attending physician: Armand Montenegro Consults: 10/30/19 15:13 Consult Physician Routine Consulting Provider: Aleksandr Obregon Consult Reason/Comments: CHF, pneumonia Do you want consulting provider notified?: Yes Primary care physician: Armand Montenegro Hospital Course: Final Diagnoses: Acute on chronic hypoxic, hypercapnic respiratory failure, multifactorial secondary to acute COPD exacerbation, pulmonary fibrosis, CHF. Wears 10 L nasal cannula O2 at home. Hemoptysis 1 week, CT reporting unchanged 1 cm right upper lobe mass at the lung apex, new irregular 2 cm infiltrate posterior left lower lobe, PE ruled out Atypical pneumonia ruled out as per pulmonary Acute Diastolic congestive heart failure End stage lung disease, pulmonary fibrosis Pulmonary hypertension Acute on chronic renal failure Chronic kidney disease stage III Insulin-dependent diabetes mellitus, hyperglycemia Chronic thrombocytopenia Chronic atrial fibrillation History of falls Hyperbilirubinemia Chronic anemia coronary artery disease status post CABG in the past,stents Valvuar Heart disease, aortic stenosis Hypertension Hyperlipidemia Bilateral lower extremity neuropathy Left knee arthroplasty Former smoker Obesity with BMI of 35.5 Hospital course:This is a 74-year-old gentleman with medical history of severe COPDwears 10 L at home exacerbation, with diastolic dysfunction CHF, severe pulmonary hypertension and multiple other medical issues. Recently discharged for the same. Returned to the ER with complaints of worsening shortness of breath. States his son turned off the air conditioning yesterday, with increased difficulty breathing, cough. Denies chest pain, palpitations. Productive bloody cough [address] Diaz discontinued his aspirin due to his coughing up blood. Chest x-ray reporting interstitial fibrotic changes, no heart failure, mild cardiomegaly, no significant change compared to prior exam. Chest CTA reported no evidence of pulmonary embolism. There is reticular interstitial density in bilateral lungs, poorly marginated 1 cm infiltrate right upper lobe at the lung apex-not significantly changed and consistent with scarring, irregular 2 cm infiltrate posterior left lower lobe new compared to old exam, no mediastinal adenopathy, thoracic aorta artheromatous. Afebrile, WBC within normal limits, hemoglobin 11.7, platelets 103. CO2 40, BUN 35, creatinine 1.43. Lactic acid 2.3. Albumin 3.4. Troponin 0.034. IV antibiotics of Zithromax and Rocephin initiated. 10/31/2019 reports nonproductive cough, no further hemoptysis. Chest x-ray reporting cardiomegaly, chronic emphysematous and parenchymal fibrotic changes with 2 patchy left basilar atelectasis and/or infiltrate. Currently at baseline, maintaining O2 sats in the 90s on 2 L high flow nasal cannula. Hyperglycemic, on IV steroids. Evaluated by pulmonary with recommendations noted and appreciated. 11/01/2019 sitting up in chair, complaining of exertional shortness of breath, less wheezing present. Maintaining O2 sats in the 90s on 10 L nasal cannula. Maintained on Zithromax, nebulized bronchodilators, IV steroids .hyperglycemic.Afebrile. Hemoglobin stable 10.8, creatinine improving, 1.16. Significant clinical improvement. Cleared by pulmonary for discharge. Patient is being discharged home in a stable condition with guarded prognosis. Advised to follow-up with Dr. Montenegro on Tuesday. The impression and plan of care has been dictated as directed. : I performed a history and examination of this patient, discussed the same with the dictator. I agree with the dictator's note ,documented as a scribe. Any additional findings or plans will be noted. Patient Condition at Discharge: Stable Plan - Discharge Summary New Discharge Prescriptions: New Aspirin 81 mg PO DAILY chew Cefuroxime Axetil [Ceftin] 500 mg PO BID 5 Days #10 tab predniSONE 10 mg PO DIRECTED #30 tab Continue Allopurinol [Zyloprim] 100 mg PO DAILY Tiotropium [place] [Spiriva] 1 cap INHALATION RT-DAILY metFORMIN HCL 1,000 mg PO BID Budesonide [Pulmicort] 0.5 mg INHALATION RT-BID PRN PRN Reason: Shortness Of Breath Tamsulosin [Flomax] 0.4 mg PO HS Pregabalin [Lyrica] 150 mg PO BID Albuterol Sulfate [Proair Hfa] 2 puff INHALATION RT-BID PRN PRN Reason: Shortness Of Breath guaiFENesin 200 mg PO DAILY Montelukast Sodium [Singulair] 10 mg PO DAILY Insulin Regular, Human [NovoLIN R] See Protocol SQ TID PRN PRN Reason: BLOOD SUGAR >150 Rosuvastatin [Crestor] 10 mg PO HS Metoprolol Tartrate [Lopressor] 25 mg PO BID Insulin Glargine [Lantus] 30 unit SQ HS Cetirizine HCl 10 mg PO HS ALPRAZolam [Xanax] 0.5 mg PO BID PRN PRN Reason: Anxiety Changed Albuterol Nebulized [Ventolin Nebulized] 2.5 mg INHALATION QID #0 Furosemide [Lasix] 40 mg PO DAILY #0 Discharge Medication List Allopurinol [Zyloprim] 100 mg PO DAILY 05/19/15 [History] Budesonide [Pulmicort] 0.5 mg INHALATION RT-BID PRN 05/19/15 [History] Tamsulosin [Flomax] 0.4 mg PO HS 05/19/15 [History] Tiotropium [place] [Spiriva] 1 cap INHALATION RT-DAILY 05/19/15 [History] metFORMIN HCL 1,000 mg PO BID 05/19/15 [History] Albuterol Sulfate [Proair Hfa] 2 puff INHALATION RT-BID PRN 10/12/19 [History] Insulin Regular, Human [NovoLIN R] See Protocol SQ TID PRN 10/12/19 [History] Metoprolol Tartrate [Lopressor] 25 mg PO BID 10/12/19 [History] Montelukast Sodium [Singulair] 10 mg PO DAILY 10/12/19 [History] Pregabalin [Lyrica] 150 mg PO BID 10/12/19 [History] Rosuvastatin [Crestor] 10 mg PO HS 10/12/19 [History] guaiFENesin 200 mg PO DAILY 10/12/19 [History] ALPRAZolam [Xanax] 0.5 mg PO BID PRN 10/30/19 [History] Cetirizine HCl 10 mg PO HS 10/30/19 [History] Insulin Glargine [Lantus] 30 unit SQ HS 10/30/19 [History] Albuterol Nebulized [Ventolin Nebulized] 2.5 mg INHALATION QID #0 11/02/19 [Rx] Aspirin 81 mg PO DAILY chew 11/02/19 [Rx] Cefuroxime Axetil [Ceftin] 500 mg PO BID 5 Days #10 tab 11/02/19 [Rx] Furosemide [Lasix] 40 mg PO DAILY #0 11/02/19 [Rx] predniSONE 10 mg PO DIRECTED #30 tab 11/02/19 [Rx] Follow up Appointment(s)/Referral(s): [facility], [NON-STAFF] - 1-2 Days Juan Diaz MD [STAFF PHYSICIAN] - 1 Week Armand Montenegro DO [Primary Care Provider] - 11/05/19 Ambulatory/Diagnostic Orders: Complete Blood Count w/diff [LAB.AMB] Time Frame: 3 Days, Location: None Selected
[2019-11-02 16:12] VITALS: BP 133/72; PULSE 76; RESP 20; TEMP 98.3
[2019-11-02 17:02] LABS: Glucose,Whole Blood 185 mg/dL (75-99)
[2019-11-03] MEDS ORDERED: PANTOPRAZOLE 40 MG TABLET PO SCH (07:30)
== END 2019-11-02 17:50 | disposition home health service (06) | DRG 190 ==
LOC: EC 20:18 → 4SSUR 22:31 → 3SCARD 10-30 19:32
PROVIDERS: ADMIT Family Medicine; ATTEND Family Medicine
DX: J44.1 Chronic obstructive pulmonary disease with (acute) exacerbation (principal); I50.33 Acute on chronic diastolic (congestive) heart failure; J96.21 Acute and chronic respiratory failure with hypoxia; J96.22 Acute and chronic respiratory failure with hypercapnia; I13.0 Hypertensive heart and chronic kidney disease with heart failure and stage 1 through stage 4 chronic kidney disease, or unspecified chronic kidney disease; N17.9 Acute kidney failure, unspecified; R04.2 Hemoptysis; I48.20 Chronic atrial fibrillation, unspecified; B38.0 Acute pulmonary coccidioidomycosis; N40.0 Benign prostatic hyperplasia without lower urinary tract symptoms; E86.0 Dehydration; E78.5 Hyperlipidemia, unspecified; D69.6 Thrombocytopenia, unspecified; E11.22 Type 2 diabetes mellitus with diabetic chronic kidney disease; E11.41 Type 2 diabetes mellitus with diabetic mononeuropathy; E66.01 Morbid (severe) obesity due to excess calories; Z20.828 Contact with and (suspected) exposure to other viral communicable diseases; I25.10 Atherosclerotic heart disease of native coronary artery without angina pectoris; F41.9 Anxiety disorder, unspecified; I27.29 Other secondary pulmonary hypertension; M19.90 Unspecified osteoarthritis, unspecified site; I35.0 Nonrheumatic aortic (valve) stenosis; Z96.652 Presence of left artificial knee joint; J84.10 Pulmonary fibrosis, unspecified; N18.3 Chronic kidney disease, stage 3 (moderate); G89.29 Other chronic pain; M54.9 Dorsalgia, unspecified; E11.65 Type 2 diabetes mellitus with hyperglycemia; D64.9 Anemia, unspecified; T38.0X5A Adverse effect of glucocorticoids and synthetic analogues, initial encounter; Z87.01 Personal history of pneumonia (recurrent); Z79.82 Long term (current) use of aspirin; Z79.4 Long term (current) use of insulin; Z79.899 Other long term (current) drug therapy; Z91.09 Other allergy status, other than to drugs and biological substances; Z68.35 Body mass index [BMI] 35.0-35.9, adult; Z95.5 Presence of coronary angioplasty implant and graft; Z98.890 Other specified postprocedural states; Z87.891 Personal history of nicotine dependence; Z85.828 Personal history of other malignant neoplasm of skin; Z82.49 Family history of ischemic heart disease and other diseases of the circulatory system; Z82.61 Family history of arthritis; Z91.81 History of falling; Z84.1 Family history of disorders of kidney and ureter
CPT/HCPCS: 36415; 71045; 71046; 71275; 80048; 80053; 83605; 83735; 84484; 85025; 85379; 85610; 85730; 87040; 87070; 87205; 87635; 93005; 94640; 96361; 96374; 96375; 96376; 99285